=== PATIENT | female | born 1960 | race Caucasian/White ===

== ENCOUNTER 2023-10-28 00:13 | Emergency (ER) | payer OTHER, SELFPAY ==
[2023-10-28 00:24] VITALS: BP 125/80; PULSE 81; RESP 24; TEMP 36.4; O2SAT 93; BMI 45.1
--- NOTE | 2023-10-28 00:30 | CRLHL7_ITS ---
For Patients: As a result of the Century Cures Act, medical imaging exams and procedure reports are released immediately into your electronic medical record. You may view this report before your referring provider. If you have questions, please contact your health care provider. INDICATION: Shortness of breath TECHNIQUE: Chest radiograph 1 view COMPARISON: None FINDINGS: The sensitivity and specificity of the exam are severely limited by the patient`s body habitus. Mediastinum: The mediastinum is normal in appearance. There is a convex density in the right cardiophrenic sulcus noted, likely due to a pericardial fat pad. Moderate to severe cardiomegaly is noted. Lung: Mild pulmonary vascular congestion is present. No sign of pleural effusion seen. No pneumothorax is identified. Bone and Soft tissue: Unremarkable for age. IMPRESSIONS: 1. Moderate to severe cardiomegaly is noted. 2. Mild pulmonary vascular congestion is present. Dictated by Cuco Shepherd MD @ 10/28/2023 12:55:28 AM Dictated by: Cuco Shepherd MD @ 10/28/2023 00:55:30 (Electronically Signed)
--- NOTE | 2023-10-28 00:32 | ED.GENADULT ---
HPI - General Adult General Chief complaint: Shortness of Breath/Dyspnea Stated complaint: short of breath Time Seen by Provider: 10/28/23 00:25 History of Present Illness HPI narrative: PATIENT IS 63-YEAR-OLD WOMAN WHO HAS HAD PROGRESSIVE SHORTNESS OF BREATH THE LAST SEVERAL DAYS. SHE SMOKES HALF PACK CIGARETTES PER DAY AND HAS DONE SO FOR MANY YEARS. SHE HAS HAD NO CHEST PAIN ORTHOPNEA NO PND. SHE IS SHORT OF BREATH WITH ACTIVITY. SHE HAS HAD NO NAUSEA NO VOMITING. HER COUGH IS NONPRODUCTIVE. SHE HAS NO LOWER EXTREMITY EDEMA. NO FEVER OR CHILLS. Related Data Home Medications ?Medication ?Instructions ?Recorded ?Confirmed aripiprazole 5 mg tablet 5 mg PO DAILY 10/28/23 10/28/23 bupropion HCl 150 mg 24 hr tablet, 150 mg PO DAILY 10/28/23 10/28/23 extended release desvenlafaxine succinate 50 mg 50 mg PO DAILY 10/28/23 10/28/23 tablet,extended release 24 hr gabapentin 600 mg tablet PO 10/28/23 hydroxyzine HCl 25 mg tablet 75 mg PO 3XD 10/28/23 10/28/23 losartan 100 1 tab PO DAILY 10/28/23 10/28/23 mg-hydrochlorothiazide 12.5 mg tablet simvastatin 20 mg tablet 20 mg PO QPM 10/28/23 10/28/23 Allergies Allergy/AdvReac Type Severity Reaction Status Date / Time No Known Drug Allergies Allergy Verified 10/28/23 00:24 Review of Systems Status of ROS: Reports: 10 or more systems reviewed and unremarkable except as noted in History and below [facility] Medical History Hyperlipidemia ?E78.5 - Hyperlipidemia, unspecified (ICD-10) Hypertension ?I10 - Essential (primary) hypertension (ICD-10) Exam Narrative: Exam Narrative: EXAM GENERAL: Patient appears comfortable and well. EYES: No scleral icterus. ENT: Tympanic membranes and oropharynx normal. THYROID: no thyroid nodules or thyromegaly. LYMPH: No supraclavicular or cervical lymphadenopathy. SKIN: Visible skin seen during exam normal or with benign process only. EXT: No dependent lower extremity pedal edema. HEART: Regular rate and rhythm with no murmurs, rubs, or gallops. LUNGS: Decreased breath sounds bilaterally. ABD: Soft, non tender, non distended. PSYCH: Good eye contact, speech is not pressured. Const: Vital Signs, click to edit/add: Vital Signs - 24 hr 10/28/23 00:24 Temperature 97.6 F Pulse Rate [Left P ulse Oximeter] 81 Respiratory Rate 24 Blood Pressure [Ri ght Upper Arm] 125/80 Pulse Oximetry 93 Oxygen Delivery Me thod Room Air Course Course ED Course: Patient seen and examined. Chest x-ray troponin D-dimer CBC basic metabolic panel EKG pending. Vital Signs Vital signs: Initial Vital Signs Temperature 97.6 F 10/28/23 00:24 Temperature Source Temporal Artery Scan 10/28/23 00:24 Pulse Rate 81 10/28/23 00:24 Pulse Rhythm Regular 10/28/23 00:24 Pulse Strength 3+ Normal 10/28/23 00:24 Respiratory Rate 24 10/28/23 00:24 Blood Pressure 125/80 10/28/23 00:24 Blood Pressure Mean 95 10/28/23 00:24 Blood Pressure Position Sitting 10/28/23 00:24 Pulse Oximetry 93 10/28/23 00:24 Oxygen Delivery Method Room Air 10/28/23 00:24 Vital Signs Temperature 97.6 F 10/28/23 00:24 Pulse Rate 81 10/28/23 00:24 Respiratory Rate 24 10/28/23 00:24 Blood Pressure 125/80 10/28/23 00:24 Pulse Oximetry 93 10/28/23 00:24 Oxygen Delivery Method Room Air 10/28/23 00:24 Temperature 97.6 F 10/28/23 00:24 Pulse Rate 81 10/28/23 00:24 Respiratory Rate 24 10/28/23 00:24 Blood Pressure 125/80 10/28/23 00:24 Pulse Oximetry 93 10/28/23 00:24 Oxygen Delivery Method Room Air 10/28/23 00:24 Medical Decision Making MDM Narrative Medical decision making narrative: Patient is a 63-year-old woman who is a tobacco user who presents with shortness of breath of several days. EKG is reassuring. Electrolytes and D-dimer unavailable. Troponin I do not believe would be helpful given the normal EKG in the chronicity of her symptoms. Chest x-ray upon my review shows no acute pneumonia as her pleural effusions. I believe her most likely diagnosis is COPD exacerbation. Will treated with prednisone albuterol with close outpatient follow-up. We are somewhat limited due to laboratory difficulties tonight. Differential diagnosis includes but not limited to COPD pneumonia viral syndrome congestive heart failure unstable angina. Lab Data Labs: Lab Results 10/28/23 Range/Units 00:50 WBC 8.69 (4.50-11.00) K/uL RBC 5.14 (4.00-5.20) m/uL Hgb 15.1 (12.0-16.0) gm/dL Hct 45.7 (33.0-51.0) % MCV 89 (80-100) fL MCH 29 (26-34) pg MCHC 33 (32-36) gm/dL RDW Coeff of Avni 13.6 (11.5-15.5) % Plt Count 277 (140-440) K/uL Neut % (Auto) 51.6 (42.0-72.0) % Lymph % (Auto) 39.6 (20-44) % Price % (Auto) 7.2 (0.0-11.0) % Eos % (Auto) 1.2 (0.0-7.0) % Baso % (Auto) 0.3 (0.0-3.0) % Neut # (Auto) 4.48 (1.7-7.0) K/uL Lymph # (Auto) 3.44 H (0.90-2.90) K/uL Price # (Auto) 0.60 (0.00-0.90) K/UL Eos # (Auto) 0.10 (0.00-0.50) K/uL Baso # (Auto) 0.03 (0.00-0.30) K/uL Abs Immat Gran (auto) 0.01 (0.00-0.30) K/uL Imm/Tot Granulo (auto) 0.1 % Discharge Plan Discharge Clinical Impression: Bronchitis Patient Disposition: Home, Self-Care Condition: Stable Instructions: Acute Bronchitis (ED) Additional Instructions: Prednisone as directed Albuterol as directed Continue current medications Stop smoking Follow-up with your doctor as directed. Activity Level: No Restrictions Discharge Diet: Regular Prescriptions: No Action aripiprazole 5 mg tablet 5 mg PO DAILY gabapentin 600 mg tablet PO simvastatin 20 mg tablet 20 mg PO QPM hydroxyzine HCl 25 mg tablet 75 mg PO 3XD bupropion HCl 150 mg tablet extended release 24 hr 150 mg PO DAILY losartan-hydrochlorothiazide 100-12.5 mg tablet 1 tab PO DAILY desvenlafaxine succinate 50 mg tablet extended release 24 hr 50 mg PO DAILY Follow Up/Referrals: Ludy Johnson PA [Primary Care Provider] - Stand Alone Forms: [employer] Info Instructions
--- OUTSIDE RECORDS SUMMARY | 2023-10-28 00:48 | XMS_ITS | Clinical Summary ---
Author Organization [facility] Address [place], [place] [address] Care Team Providers Care Mds Coordinator Name Role Phone Pcp, No Primary Care Provider Unavailabl e Allergies Active Allergy Reactions Criticality Noted Date Comments Hydromorphone Itching Medium 01/15/2018 Tolerating morphine and oxycodone fine during this same admission. Medications Medication Sig Dispensed Refills Start Date End Date Status furosemide (LASIX) 20 mg tablet TAKE 1 TABLET BY MOUTH DAILY NEEDED FOR EDEMA Strength: 20 mg 03/15/2022 Active gabapentin (NEURONTIN) 300 mg capsule Take 300 mg by mouth. 06/30/2022 Active hydrOXYzine HCL (ATARAX) 25 mg tablet TAKE ONE TO TWO TABLETS BY MOUTH EVERY 6 TO 8 HOURS NEEDED FOR ANXIETY, TAKE TWO TO FOUR TABLETS BY MOUTH NEEDED FOR SLEEP 08/08/2022 Active isosorbide mononitrate (IMDUR) 30 mg extended release tablet 24 Hour Take 30 mg by mouth. 04/28/2022 Active simvastatin (ZOCOR) 10 mg tablet Take 1 Tablet (10 mg) by mouth at bedtime. 0 12/21/2022 Active losartan (COZAAR) 25 mg tablet Take 1 Tablet (25 mg) by mouth once daily. 0 12/21/2022 Active Active Problems No known active problems Immunizations Name Administration Dates Next Due Tdap 12/21/2022 Social History Tobacco Use Types Packs/Day Years Used Date Smoking Tobacco: Every Day Cigarettes 0.5 51.5 Started: 1973 Smokeless Tobacco: Never Tobacco Cessation:Ready to Q uit: Not Asked; Counseling Given: Not Answered Sex and Gender Information Value Date Recorded Sex Assigned at Not on file Gender Identity Not on file Sexual Orientation Not on file Obstetrics History Last Filed Vital Signs Vital Sign Reading Time Taken Comments Blood Pressure 139/94 12/21/2022 11:48 AM CDT Pulse 95 12/21/2022 11:48 AM CDT Temperature 36.1 ??C (97 ??F) 12/21/2022 11:48 AM CDT Respiratory Rate 16 12/21/2022 11:48 AM CDT Oxygen Saturation 94% 12/21/2022 11:48 AM CDT Inhaled Oxygen Concentration - - Weight - - Height - - Body Mass Index - - Plan of Treatment Health Maintenance Due Date Last Done Comments Depression screening for age 12+ 1971 HIV for age 15-65 08/24/1974 BMI (ht and wt on same day) for age 18+ 08/24/1977 Hepatitis C screening for ag e 18-79 08/24/1977 Pap test for age 21-65 08/24/1980 Colonoscopy through age 75 08/24/2004 Lipids for age 45-75 08/24/2004 Mammogram for age 45-75 08/24/2004 Zoster (shingles) series for age 50+ (1 of 2) 08/24/2009 COVID-19 vaccine series (2022- season) 2022 08/13/2020, 07/23/2020 Influenza for age 50-64 12/23/2023 Tetanus booster 12/21/2032 12/21/2022 Tdap Completed 12/21/2022 Pneumococcal series for age 6-64 Aged Out No longer eligible b ased on patient's age to complete this topic Care Teams Mds Coordinator Relationship Specialty Start Date End Date Pcp, No . PCP - General 12/21/22
--- OUTSIDE RECORDS SUMMARY | 2023-10-28 00:48 | XMS_ITS | Continuity of Care Document ---
Author Organization [facility] Address [address] [address] [place] [address] Phone Care Team Providers Care Associate Professor Of Library Media Name Role Phone Link Stalin KUMAR Unavailable Unavailable Advance Directives Directive Yes / No Effective Date File Name No Information Encounters Encounter Description Practice Location Reason(s) For Visit Diagnoses Date Provider Providers Copied on Encounter [facility], [address] [address], [place], [place], [id number], [place] tel:[phone] [facility] No Information 8 Link MD Gant. [address] [facility], [place], [place], [id number] , [place]. tel:[phone] Family History Family Member Type Diagnosis Age At Onset No Information Payers Payer name Insurance type Covered alliance party ID Authoriza tion(s) No Information Social History Type Description Quantity Date Captured Comments Sex Female Smoking Status No Information Chief Complaint And Reason For Visit No Information Reason For Referral Reason For Referral No Information History Of Present Illness Encounter Date Complaint History Of Prese nt Illness No Information Functional Status Date Functional Assessmen t No Information Instructions Date Instruction Additional Infor mation No Information Assessments Type Assessment Date No Information Patient Care Teams Name Effective Dates (start - stop) Status Members No Information
--- OUTSIDE RECORDS SUMMARY | 2023-10-28 00:49 | XMS_ITS | Encounter Summary ---
Author Organization [facility] Address [address] [place] [address] Care Team Providers Care Dining Host Name Role Phone Ludy Johnson PA-C Primary Care Provider [phone] Ludy Johnson PA-C Unavailable [phone] Sanjana Blair RN Unavailable [phone] Vinita Begum HAT BAND ATTACHER Unavailable Kathy Edge BUILDING TECH Unavailable Danae Carrero CHW Unavailable Enid Ho DNP Unavailable Kendrick Lopez MD Unavailable Encounter Details Date Type Department Care Team (Late st Contact Info) Description 10/18/2023 MyC Medical Advice [facility] Mental Health & Addiction [address] [address] Kathy Edge BUILDING TECH [address] [address] Social History Tobacco Use Types Packs/Day Years Used Date Smoking Tobacco: Every Day Cigarettes 0.5 30 Smokeless Tobacco: Never Comments:08/09/23 using betwe en 10-15 cigs/day down to 3 or 4 a day Alcohol Use Standard Drinks/Week Comments Yes 0 (1 standard drink = 0.6 oz pur e alcohol) very rarely PHQ-2 Answer Date Recorded PHQ-2 Score 2 10/18/2023 Adolescent Education Answer Date Record ed Getting School Help Needed Not on file 01/16 Food Insecurity Answer Date Recorded Within the past 12 months, d id you worry that your food would run out before you got money to buy more? Yes 04/30/2023 Within the past 12 months, d id the food you bought just not last and you didn? t have money to get more? Yes 04/30/2023 Housing Stability Answer Date Recorded Do you have housing? (Housin g is defined as stable permanent housing and does not include staying ouside in a car, in a tent, in an abandoned building, in an overnight alf, or couch-surfing.) Yes 04/30/2023 Are you worried about losing your housing? Patie nt declined 04/30/2023 Financial Resource Strain Answer Date R ecorded Within the past 12 months, h ave you or your family members you live with been unable to get utilities (heat, electricity) when it was really needed? Patient declined 024 Transportation Needs Answer Date Record ed Within the past 12 months, h as lack of transportation kept you from medical appointments, getting your medicines, non-medical meetings or appointments, work, or from getting things that you need? No 04/30/2023 Sex and Gender Information Value Date Recorded Sex Assigned at Not on file Gender Identity Not on file Sexual Orientation Not on file documented as of this encounter Miscellaneous Notes * Telephone Encounter - Enid Ho DNP - 10/19/2023 11:17 AM CDT Letter for [place] created. Letter supporting [facility] created. Enid Ho DNP, WRISTER, FMHNP-BC, documented in this encounter Plan of Treatment Upcoming Encounters Date Type Department Care Team (Late st Contact Info) Description 11/29/2023 10:30 AM CDT Virtual Visit [facility] Mental Health & Addiction [facility] [address] [place] [address] Kathy Edge LICSW [facility] [address], [address] [place] [address] 11/29/2023 11:00 AM CDT Virtual Visit [facility] Mental Health & Addiction [facility] [address] [place] [address] Enid Ho, YASMIN [address] [place] [address] 12/11/2023 2:45 PM CDT Office Visit [facility] Heart [facility] [address] [facility] [address] [place] [phone] Kendrick Lopez MD [address] [place] [address] documented as of this encounter Goals Goal Patient Goal Type Associated Problems Recent Progress Patient-Stated? Author Create an action plan to increase financial stability Care Plan Patient expresses financial resource strain 10%( 3:26 PM CDT) No Vinita Begum, HAT BAND ATTACHER Note: Barriers: Have been supporting my son and his girlfriend who live with me Strengths: Engaged with PCP, mental health support and care coordination Patient expressed understanding of goal: Yes Action steps to achieve this goal: 1. I will make plan to retire as soon as possible. 2. I will contact Social Security Administration to explore my skilled nursing options and to see if SSD is an option. . 3. I will consult with [facility] about health insurance options. 4. I will make plan with son and his girlfriend and my expectation for their paying monthly rent and expenses. 5. I will access [employer] program for food. documented as of this encounter Visit Diagnoses Not on filedocumented in this encounter Additional Health Concerns Active Problems Noted Date Diagnosed Date Patient expresses financial resource strain 07/23 Assessment Noted Time PHQ-9 Depression Total Score: 9 10/18/19 24 6:28 AM CDT documented as of this encounter Care Teams Dining Host Relationship Specialty Start Date End Date Ludy Johnson PA-C [address] [place] [address] PCP - General Physician Operational Intelligence Analyst 10/22/15 Ludy Johnson PA-C [address] [place] [address] Assigned PCP 06/09/18 Sanjana Blair, MIREYA Personal Advocate & Liaison (PAL) Nurse 04/25/23 Vinita Begum, [facility] Lead Timber Surveyor Primary Care - CC 08/06/23 Kathy Edge LICSW [address], [address] [place], [place] [phone] Assigned Behavioral Health Provider 08/14/23 Danae Carrero, [facility] Community Health Worker Primary Care - CC 08/16/23 Enid Ho DNP [address] [place] [address] Assigned Neuroscience Provider 09/13/23 Kendrick Lopez MD [address] [place] [address] Cardiovascular Disease 09/28/23 documented as of this encounter
--- OUTSIDE RECORDS SUMMARY | 2023-10-28 00:49 | XMS_ITS | Encounter Summary ---
Author Organization [facility] Address [address] [place] [address] Care Team Providers Care Administration Vice President Name Role Phone Ludy Johnson PA-C Primary Care Provider [phone] Ludy Johnson PA-C Unavailable [phone] Sanjana Blair RN Unavailable Vinita Begum EXECUTIVE WELLNESS PROGRAMS DIRECTOR Unavailable Kathy Edge PRINCIPAL NETWORK ARCHITECT Unavailable Danae Carrero CHW Unavailable Enid Ho DNP Unavailable Kendrick Lopez MD Unavailable [phone] Reason for Visit * Reason Onset Date Comments FMLA ext. 10/17/2023 LM for patient t o return call, per Enid Ho, does the pt need an extension In FMLA Encounter Details Date Type Department Care Team (Late st Contact Info) Description 10/17/2023 Telephone [facility] Mental Health & Addiction [facility] [address] [place] [address] Nino Wang FMLA ext. (LM for patient to return call, per Enid Ho, does the pt need an extension In FMLA ) Social History Tobacco Use Types Packs/Day Years [...] on file documented as of this encounter Plan of Treatment Upcoming Encounters Date Type Department Care Team (Late st Contact Info) Description 11/29/2023 10:30 AM CDT Virtual Visit [facility] Mental Health & Addiction [address] [place] [address] [place] [phone] Kathy Edge, ZULLY [address], [address] [place] [address] 11/29/2023 11:00 AM CDT Virtual Visit [facility] & Addiction [facility] [address] [place] [phone] Enid Ho, YASMIN [address] [place] [address] 12/11/2023 2:45 PM CDT Office Visit [facility] [address] [facility] [address] [place] [phone] Kendrick Lopez MD [address] [place] [address] documented as of this encounter Goals Goal Patient Goal Type Associated Problems Recent Progress Patient-Stated? Author Create an action plan to increase financial stability Care Plan Patient expresses financial resource strain 10%( 4 3:26 PM CDT) No Vinita Begum, EXECUTIVE WELLNESS PROGRAMS DIRECTOR Note: Barriers: Have been supporting my son and his girlfriend who live with me Strengths: Engaged with PCP, mental health support and care coordination Patient expressed understanding of goal: Yes Action steps to achieve this goal: 1. I will make plan to retire as soon as possible. 2. I will contact Social Security Administration to explore my [place] health [place] options and to see if SSD is an option. . 3. I will consult with [employer] about health insurance options. 4. I will make plan with son and his girlfriend and my expectation for their paying monthly rent and expenses. 5. I will access [employer] program for food. documented as of this encounter Visit Diagnoses Not on filedocumented in this encounter Additional Health Concerns Active Problems Noted Date Diagnosed Date Patient expresses financial resource strain 07/23 Assessment Noted Time PHQ-9 Depression Total Score: 6 09/12/19 24 10:54 AM CDT documented as of this encounter Care Teams Administration Vice President Relationship Specialty Start Date End Date Ludy Johnson PA-C [address] [place] [address] PCP - General Physician Electric Refrigerator Servicer 10/22/15 Ludy Johnson PA-C [address] [place] [address] Assigned PCP 06/09/18 Sanjana Blair, RN Personal Advocate & Liaison (PAL) Nurse 04/25/23 Vinita Begum, [facility] Lead Dirt Contractor Primary Care - CC 08/06/23 Kathy Edge, PRINCIPAL NETWORK ARCHITECT [address], [address] [place], [place] [address] Assigned Behavioral Health Provider 08/14/23 Danae Carrero, [facility] Community Health Worker Primary Care - CC 08/16/23 Enid Ho DNP [address] [place] [address] Assigned Neuroscience Provider 09/13/23 Kendrick Lopez MD [address] [place] [id number] Cardiovascular Disease 09/28/23 documented as of this encounter
--- OUTSIDE RECORDS SUMMARY | 2023-10-28 00:49 | XMS_ITS | Clinical Summary ---
Author Organization [place] Address [address] [place] [address] Care Team Providers Care Testing Tech Name Role Phone Ludy Hurst PA-C Primary Care Provider [phone] Ludy Hurst PA-C Unavailable Sanjana Blair RN Unavailable Vinita Begum MOBILE SERVICE RV TECHNICIAN Unavailable Kathy Edge MANAGER INTENSIVE CARE UNIT Unavailable Danae Carrero CHW Unavailable Enid Ho DNP Unavailable Kendrick Lopez MD Unavailable Allergies Active Allergy Reactions Criticality Noted Date Comments Hydromorphone Itching Medium 01/15/2018 Tolerating morphine and oxycodone fine during this same admission. Medications Medication Sig Dispensed Refills Start Date End Date Status ondansetron (ZOFRAN ODT) 4 MG ODT tabIndications:Todd sea Take 1 tablet (4 mg) by mouth every 8 hours as needed for nausea 15 tablet 1 06/04/2023 Active Additional Information Patient not taking.Reported on 08/09/2023 hydrOXYzine HCl (ATARAX) 25 MG tabletIndications: Anxiety state,Insomnia, unspecified type TAKE ONE TO TWO TABLETS BY MOUTH EVERY 6 TO 8 HOURS NEEDED FOR ANXIETY, TAKE TWO TO FOUR TABLETS BY MOUTH NEEDED FOR SLEEP 90 tablet 1 08/03/2023 Active simvastatin (ZOCOR) 20 MG tabletIndications: Hyperlipidemia LDL goal <100 Take 1 tablet (20 mg) by mouth at bedtime 90 tablet 1 08/03/2023 Active losartan-hydrochlo rothiazide (HYZAAR) 100-12.5 MG tabletIndications: Hypertension goal BP (blood pressure) < 140/90 Take 1 tablet by mouth daily 90 tablet 3 08/03/2023 Active gabapentin (NEURONTIN) 600 MG tablet Take 1-1.5 tablets (600-900 mg) by mouth at bedtime 135 tablet 08/09/2023 Active betamethasone dipropionate (DIPROSONE) 0.05 % external ointmentIndication s:Dermatitis Apply topically 2 times daily as needed (for irritation) 45 g 1 08/22/2023 Active isosorbide mononitrate (IMDUR) 30 MG 24 hr tabletIndications: Abnormal stress test Take 1 tablet (30 mg) by mouth daily - please make cardiology visit for further refills. 90 tablet 09/28/2023 Active ARIPiprazole (ABILIFY) 5 MG tabletIndications: Severe episode of recurrent major depressive disorder, without psychotic features (H) Take 1 tablet (5 mg) by mouth at bedtime 90 tablet 10/18/2023 Active buPROPion (WELLBUTRIN XL) 150 MG 24 hr tabletIndications: Severe episode of recurrent major depressive disorder, without psychotic features (H) Take 1 tablet (150 mg) by mouth every morning 30 tablet 1 10/18/2023 Active desvenlafaxine succinate (PRISTIQ) 50 MG 24 hr tabletIndications: Severe episode of recurrent major depressive disorder, without psychotic features (H) Take 1 tablet (50 mg) by mouth daily For one week then discontinue 7 tablet 10/18/2023 Active desvenlafaxine (PRISTIQ) 100 MG 24 hr tabletIndications: Anxiety state,Severe episode of recurrent major depressive disorder, without psychotic features (H) Take 1 tablet (100 mg) by mouth daily 90 tablet 1 08/03/2023 Discontinue d(Not Effective) ARIPiprazole (ABILIFY) 2 MG tabletIndications: Severe episode of recurrent major depressive disorder, without psychotic features (H) Take 1 tablet (2 mg) by mouth daily 1/2 tablet oral daily for one week then increase to 1 tablet thereafter. 30 tablet 1 08/09/2023 4 Discontinue d(Dose adjustment) ARIPiprazole (ABILIFY) 5 MG tabletIndications: Severe episode of recurrent major depressive disorder, without psychotic features (H) Take 1 tablet (5 mg) by mouth at bedtime 30 tablet 1 09/13/2023 4 Discontinue d(Reorder (No AVS)) Hospital, Clinic, or Other Facility Administered Medication Ordered Dose Route Frequency Start Date End Date Status dexamethasone (DECADRON) injection 1 mLIndications:De Quervain's tenosynovitis, right,Extensor tenosynovitis of right wrist 1 mL 06/10/2021 Active dexamethasone (DECADRON) injection 1 mLIndications:De Quervain's tenosynovitis, right 1 mL 07/26/2021 Active lidocaine 1 % injection 1 mLIndications:De Quervain's tenosynovitis, right 1 mL 07/26/2021 Acti ve Active Problems Problem Noted Date Diagnosed Date Severe episode of recurrent major depressive disorder, without psychotic features 08/15/2023 Acute cough 06/04/2023 Last Assessment & Plan: Cough producing mucus. Over the weekend. Chest is clear, posterior pharyngeal lymphoid streaks. Coryza. Postnasal drip. Treat Diarrhea of presumed infectious origin Last Assessment & Plan: Onset 4 days ago. Watery without blood no abdominal pain abdomen benign. Discussed dietary modification fluids. Given medical regimen and diarrhea, assess electrolytes. Recommend Pedialyte as fluid replacement Nausea 06/04/2023 Last Assessment & Plan: Nausea anorexia with illness. Abdomen is benign. Antinauseants. Discussed dietary modification for nausea. Push fluids orally Coryza 06/04/2023 Last Assessment & Plan: History duration and findings suggest viral syndrome. Symptomatic measures Moderate episode of recurrent major depressive d isorder 04/26/2023 Anxiety 04/26/2023 Combined forms of age-related cataract of both e yes 01/09/2022 Overview: Added automatically from request for surgery [id number] Nuclear cataract, nonsenile 01/09/2022 Overview: Added automatically from request for surgery [id number] Pain of right thumb 06/22/2021 Pain of right hand 06/22/2021 Insomnia, unspecified type 02/10/2020 S/P colostomy 05/28/2018 H/O ileostomy 01/14/2018 Diverticulitis large intestine 12/03/2017 Perforation of sigmoid colon due to diverticulit is 12/03/2017 Prediabetes 07/22/2015 Bilateral leg edema 12/03/2014 Stasis dermatitis 11/13/2014 Cellulitis 11/13/2014 Fluid retention 11/13/2014 Right shoulder pain 08/21/2013 Osteoarthritis of acromioclavicular joint 2013 Mood disorder (H24) 08/19/2013 Elevated fasting glucose 08/18/2013 Morbid obesity 08/15/2013 Hypertension goal BP (blood pressure) < 140/90 0 11/11/2012 Hyperlipidemia LDL goal <100 07/06/2011 Fluid retention in legs 10/21/2010 Herpes zoster 08/07/2006 Overview: Problem list name updated by automated process. Provider to review Anxiety state 08/07/2006 Overview: Problem list name updated by automated process. Provider to review Resolved Problems Problem Noted Date Diagnosed Date Resolved Date Depression, unspecified depression type 04/26/2023 08/03/2023 Right wrist pain 06/22/2021 12/30/2021 Major depressive disorder, r ecurrent episode, mild (H24) 05/28/2018 08/03/2023 Mild major depression 11/29/20132023 Shoulder pain 08/15/2013 10/16/2013 CARDIOVASCULAR SCREENING; LD L GOAL LESS THAN 130 06/02/2009 07/06/2011 Encounters Date Type Department Care Team Description 10/26/2023 Telephone [facility] [address] [place] [phone] Enid Ho, DNP Forms ([place]) 10/18/2023 11:00 AM CDT Virtual Visit [facility] [address] [place] [address] [address] [place] [phone] Enid Ho DNP Severe episode of recurrent major depressive disorder, without psychotic features (H) 10/18/2023 10:30 AM CDT Virtual Visit [facility] [address] [place] [address] [address] [place] [phone] Kathy Edge LICSW Depression, major, recurrent, moderate (H) (Primary Dx) 10/18/[address] [facility] [address] [place] [address] [place] [phone] Kathy Edge LICSW 10/17/2023 Telephone [facility] [address] [place] [address] [place] [phone] Nino Wang FMLA ext. (LM for patient to return call, per Enid Ho, does the pt need an extension In FMLA ) 10/16/2023 Telephone [facility] [address] [place] [address] Ludy Hurst PA-C Forms ([facility] Leave Request Number: [id number]) 10/09/[address] [facility] [address] [place] [address] [place] [phone] Enid Ho DNP Patient Request for Note/Letter (Letter to... 09/28/2023 Telephone [facility] [address] [facility] [address] [place] [phone] Kendrick Lopez MD Refill Request (isosorbide mononitrate (IMDUR) 30 MG 24 hr tablet [[id number]]) 09/20/[address] [facility] [address] [place] [address] [place] [phone] Enid Ho DNP Medication Refill; Refill Request (Aripiprazole 2mg) 09/13/2023 4:00 PM CDT Virtual Visit [facility] [address] [place] [address] [place] [phone] Enid Ho DNP Severe episode of recurrent major depressive disorder, without psychotic features (H) (Primary Dx) 09/13/2023 3:30 PM CDT Virtual Visit [facility] [address] [place] [phone] Kathy Edge LICSW Depression, unspecified depression type (Primary Dx) 09/04/2023 Documentation Only [facility] [address] [phone] Enid Ho DNP 09/03/2023 MyC Medical Advice [address] [phone] Ludy Hurst PA-C Patient Request (Leave of absence forms [place]... 08/28/[address] [phone] Ludy Hurst PA-C Follow Up (Forms ) 08/28/2023 Telephone [facility] [address] [phone] Enid Ho DNP Call Back (See documentation. ) 08/23/[address] [phone] Ludy Hurst PA-C [facility] 08/22/2023 9:00 AM CDT Office Visit [facility] [phone] [place] [phone] Ludy Hurst PA-C Severe episode of recurrent major depressive disorder, without psychotic features (H) (Primary Dx); Achilles bursitis of left lower extremity; Pre-diabetes; Dermatitis; Visit for screening mammogram 08/22/2023 Travel 08/16/[address] [phone] Ludy Hurst PA-C Forms (Attending Physician's Statement) 08/09/2023 11:00 AM CDT Virtual Visit [address] [phone] Ludy Hurst PA-C Moderate episode of recurrent major depressive disorder (H) (Primary Dx); Anxiety; Achilles bursitis of left lower extremity 08/09/2023 8:30 AM CDT Virtual Visit [facility] [address] [place] [address] [address] [place] [phone] Enid Ho, DNP Severe episode of recurrent major depressive disorder, without psychotic features (H) (Primary Dx); Insomnia due to psychological stress 08/09/2023 8:00 AM CDT Virtual Visit [facility] [address] [place] [address] Kathy Edge LICSW Depression, unspecified depression type (Primary Dx) 08/08/[address] [facility] [address] [place] [address] Kathy Edge LICSW 08/07/2023 1:00 PM CDT Virtual Visit [facility] [address] [phone] Torie Monroy LICSW Depression, unspecified depression type (Primary Dx) 08/07/[address] [phone] Ludy Hurst PA-C Forms ([facility] Source Leave Request Number: [id number]) 08/07/[address] [facility] [address] [phone] Torie Monroy, MANAGER INTENSIVE CARE UNIT 08/07/2023 MyC Medical Advice [facility] Addiction [address] [phone] Torie Monroy, MANAGER INTENSIVE CARE UNIT 08/03/2023 10:00 AM CDT Virtual Visit [address] [phone] Ludy Hurst PA-C Severe episode of recurrent major depressive disorder, without psychotic features (H) (Primary Dx); Hypertension goal BP (blood pressure) < 140/90; Anxiety state; Insomnia, unspecified type; Hyperlipidemia LDL goal <100; Financial difficulty 07/31/[address] [phone] Ludy Hurst PA-C Patient Request (MIREYA ZAVALA ) 07/31/2023 MyC Medical Advice [address] [phone] Rosy Shay MA Appointment (R/S 08/22/2023 with JOEY arriving... from Last 3 Months Immunizations Name Administration Dates Next Due COVID-19 MONOVALENT 12+ (Pfizer) 08/13/2020 Influenza Vaccine 18-64 (Flublok) 01/18/2018 TDAP (Adacel,Boostrix) 12/21/2022 TDAP Vaccine (Adacel) 07/04/2012 Family History Medical History Relation Comments Alcoholism Father Alzheimer Disease Father Diabetes Father Heart Disease Father Retinal detachment Father Diabetes Maternal Grandmother Anxiety Disorder Mother Depression Mother Diabetes Mother Myocardial Infarction Mother Relation Status Comments Father Maternal Grandmother Mother Hoarder Social History Tobacco Use Types Packs/Day Years Used Date Smoking Tobacco: Every Day Cigarettes 0.5 30 Smokeless Tobacco: Never Tobacco Cessation:Ready to Q uit: Not Asked; Counseling Given: Not Answered Comments:08/09/23 using between 10-15 cigs/day down to 3 or 4 [...] Answer Date Recorded Do you have housing? (Hua g is defined as stable permanent housing and does not include staying ouside in a car, in a tent, in an abandoned building, in an overnight prison, or couch-surfing.) Yes 04/30/2023 Are you worried [...] on file Sexual Orientation Not on file Last Filed Vital Signs Vital Sign Reading Time Taken Comments Blood Pressure 128/72 08/22/2023 9:25 AM CDT Pulse 88 08/22/2023 9:01 AM CDT Temperature 36.4 ??C (97.6 ??F) 08/22/2023 9:01 AM CD T Respiratory Rate 18 08/22/2023 9:01 AM CDT Oxygen Saturation 93% 08/22/2023 9:01 AM CDT Inhaled Oxygen Concentration - - Weight 135.8 kg (299 lb 6.4 oz) 08/22/2023 9:01 AM CDT Height 170.2 cm (5' 7) 10/18/2023 10:1 8 AM CDT Body Mass Index 46.89 08/22/2023 9:01 AM CDT Plan of Treatment Upcoming Encounters Date Type Department Care Team (Late st Contact Info) Description 11/29/2023 10:30 AM CDT Virtual Visit [facility] [address] [place] [phone] Kathy Edge LICSW [facility] [address], [address] [place] [address] 11/29/2023 11:00 AM CDT Virtual Visit [facility] [address] [place] [phone] Enid Ho, [facility] [address] [place], [place] [phone] 12/11/2023 2:45 PM CDT Office Visit [facility] [address] [facility] [address] [place] [phone] Kendrick Lopez MD [address] [place], [place] [phone] Health Maintenance Due Date Last Done Comments CT COLONOGRAPHY 1960 FLEX SIG 1960 sDNA (Cologuard) 1960 Pneumococcal Vaccine: Pediatrics (0 to 5 Years) and At-Risk Patients (6 to 64 Years) (1 of 2 - PCV) 08/24/1965 LUNG CANCER SCREENING 08/24/2009 ZOSTER IMMUNIZATION (1 of 2) 08/24/2009 FIT 11/02/2011 11/01/2010 MAMMO SCREENING 10/20/2012 10/20/2010 COLONOSCOPY 12/05/2013 12/05/2010 COLORECTAL CANCER SCREENING 12/05/2013 YEARLY PREVENTIVE VISIT 07/21/2016 07/22/19 16, 07/04/2012, 09/23/2010 PAP 07/21/2018 07/22/2015, 09/23/2010 RSV VACCINE ( & 60+) (1 - 1-dose 60+ series) 2019 COVID-19 Vaccine (2022- season) 2022 08/13/2020, 07/23/2020 INFLUENZA VACCINE (#1) 2023 01/18/2018 PHQ-9 04/18/2024 10/18/2023, 05/2 06/2023, 08/22/2023, Additional history exists LIPID 05/07/2024 05/07/2023, 06/0 07/2019, 05/28/2018, Additional history exists ANNUAL REVIEW OF HM ORDERS 08/02/202408/02, 08/08/2022, 02/10/2020 NICOTINE/TOBACCO CESSATION COUNSELING Q 1 YR 08/02/2024 08/03/2023, 08/08/2022, 10/01/2020, Additional history exists GLUCOSE 06/04/2026 06/04/2023, 04/23, 01/12/2022, Additional history exists ADVANCE CARE PLANNING 01/12/2027 01/12/2022 , 12/03/2017, 11/16/2014 (Declined) DTAP/TDAP/TD IMMUNIZATION (3 - Td or Tdap) 12/21/2032 12/21/2022, 07/04/2012 DEPRESSION ACTION PLAN Completed 6, 04/13/2015, 07/06/2011 HEPATITIS C SCREENING Completed 05/28/2018 HIV SCREENING Addressed 10/01/2020 (Declined) Overr idden with the intention of not completing the topic HPV IMMUNIZATION Aged Out No longer e ligible based on patient's age to complete this topic IPV IMMUNIZATION Aged Out No longer e ligible based on patient's age to complete this topic MENINGITIS IMMUNIZATION Aged Out No l onger eligible based on patient's age to complete this topic RSV MONOCLONAL ANTIBODY Aged Out No l onger eligible based on patient's age to complete this topic Goals Goal Patient Goal Type Associated Problems Recent Progress Patient-Stated? Author Create an action plan to increase financial stability Care Plan Patient expresses financial resource strain 10%( 4 3:26 PM CDT) No Vinita Begum LSW Note: Barriers: Have been supporting my son and his girlfriend who live with me Strengths: Engaged with PCP, mental health support and care coordination Patient expressed understanding of goal: Yes Action steps to achieve this goal: 1. I will make plan to retire as soon as possible. 2. I will contact Social Security Administration to explore my residential options and to see if SSD is an option. . 3. I will consult with [facility] about health insurance options. 4. I will make plan with son and his girlfriend and my expectation for their paying monthly rent and expenses. 5. I will access IPPLEX RX program for food. Medical Devices Implanted Type Area Transmission Rebuilder Device Identifier Shelf Expiration Date Model / Serial / Lot Eye Imp Iol Remy Acrysof Uv [id number] 19.0d - [id number] Implanted:Qty: 1 on 01/17/2022 by Timoteo Fitzpatrick MD at [facility] Lens/Eye Implant Right: Eye [employer] [id number] 09/26/2026 SA60WF.19 0 / [id number] / Eye Imp Iol Remy Acrysof Uv Sa60wf +20.0d - [id number] Implanted:Qty: 1 on 01/31/2022 by Timoteo Fitzpatrick MD at [facility] Lens/Eye Implant Left: Eye [employer] 09/25/2026 SA60WF.20 0 / [id number] / Procedures Procedure Name Priority Date/Time Associated Diagnosis Comments HEMOGLOBIN A1C Routine 08/22/2023 9:49 AM CDT Pre-diabetes BASIC METABOLIC PANEL Routine 06/04/2023 4:09 PM SCOWMAN Diarrhea of presumed infectious origin LIPID REFLEX TO DIRECT LDL PANEL Routine 05/07/2023 4:26 PM SCOWMAN Hyperlipidemia LDL goal <100 HEPATITIS C SCREEN REFLEX TO HCV RNA QUANT AND GENOTYPE Routine 05/28/2018 9:16 AM SCOWMAN Need for hepatitis C screening test PAP IMAGED THIN LAYER SCREEN Routine 07/22/2015 12:00 AM CDT Routine general medical examination at a health care facility COLONOSCOPY Routine 12/05/2010 FECAL COLORECTAL CANCER SCREEN FIT Routine 11/01/2010 7:00 AM CDT Routine general medical examination at a health care facility MA SCREENING DIGITAL BILATERAL Routine 10/20/2010 8:21 AM CDT from Last 3 Months or Most Recently Relevant to Health Maintenance Results * (ABNORMAL) Hemoglobin A1c (08/22/2023 9:49 AM CDT) Hemoglobin A1C 6.1(H) 0.0 - 5.6 % 08/22/2023 10:00 AM CDT [facility] Comment: Normal <5.7% Prediabetes 5.7-6.4% ?? Diabetes 6.5% or higher Note: Adopted from ADA consensus guidelines. Blood BLOOD SPECIMEN / Unknown Venipuncture / Unknown 08/22/2023 9:49 AM CDT 08/22/2023 9:49 AM CDT Ludy Hurst PA-C LAB - BLOOD ORDERA BLES [facility] [address] [place] [address] (no room number, 1st floor of clinic) [place] [address], [place] [phone] * (ABNORMAL) Basic metabolic panel (Ca, Cl, CO2, Creat, Gluc, K, Na, BUN) (06/04/2023 4:09 PM SCOWMAN) Sodium 138 135 - 145 mmol/L 06/05/2023 6:03 PM SCOWMAN [facility] Comment:Reference intervals for this test were updated on 01/16/2023 to more accurately reflect our healthy population. There may be differences in the flagging of prior results with similar values performed with this method. Interpretation of those prior results can be made in the context of the updated reference intervals. Potassium 3.8 3.4 - 5.3 mmol/L 06/05/2023 6:03 PM SCOWMAN [facility] Chloride 100 98 - 107 mmol/L 06/05/2023 6:03 PM SC[facility]MAN [facility] Carbon Dioxide (CO2) 25 22 - 29 mmol/L 06/05/2023 6:03 PM SC[facility]MAN [facility] Anion Gap 13 7 - 15 mmol/L 06/05/2023 6:03 PM SCOWMAN [facility] Urea Nitrogen 24.8(H) 8.0 - 23.0 mg/dL 06/05/2023 6:03 PM SCOWMAN [facility] Creatinine 0.95 0.51 - 0.95 mg/dL 06/05/2023 6:03 PM SCOWMAN [facility] GFR Estimate 67 >60 mL/min/1. 73m2 06/05/2023 6:03 PM SCOWMAN [facility] Calcium 9.7 8.8 - 10.2 mg/dL 06/05/2023 6:03 PM SC[facility]MAN [facility] Glucose 105(H) 70 - 99 mg/dL 06/05/2023 6:03 PM SCOWMAN [facility] Blood BLOOD SPECIMEN / Unknown Venipuncture / Unknown 06/04/2023 4:09 PM SCOWMAN 06/04/2023 4:09 PM SCOWMAN Suhail Flores MD LAB - BLOOD ORDERABL ES [facility] [address] [facility], [address] [address] [phone] * (ABNORMAL) Lipid panel reflex to direct LDL Fasting (05/07/2023 4:26 PM SCOWMAN) Cholesterol 247(H) <200 mg/dL 05/08/2023 6:15 PM SCOWMAN [facility] Triglycerides 179(H) <150 mg/dL 05/08/2023 6:15 PM SCOWMAN [facility] Direct Measure HDL 64 >=50 mg/dL 05/08/2023 6:15 PM SCOWMAN [facility] LDL Cholesterol Calculated 147(H) <=100 mg/dL 05/08/2023 6:15 PM SCOWMAN [facility] Non HDL Cholesterol 183(H) <130 mg/dL 05/08/2023 6:15 PM SCOWMAN [facility] Patient Fasting > 8hrs? No 05/08/2023 6:15 PM SCOWMAN [facility] Blood BLOOD SPECIMEN / Unknown Venipuncture / Unknown 05/07/2023 4:26 PM SCOWMAN 05/07/2023 4:26 PM SCOWMAN Narrative [facility] - 05/08/2023 6:15 PM SCOWMAN Cholesterol Desirable: ??<200 mg/dL Triglycerides Normal: ??Less than 150 mg/dL Borderline High: ??150-199 mg/dL High: ??200-499 mg/dL Very High: ??Greater than or equal to 500 mg/dL Direct Measure HDL Female: ??Greater than or equal to 50 mg/dL Male: ??Greater than or equal to 40 mg/dL LDL Cholesterol Desirable: ??<100mg/dL Above Desirable: ??100-129 mg/dL Borderline High: ??130-159 mg/dL High: ??160-189 mg/dL Very High: ??>= 190 mg/dL Non HDL Cholesterol Desirable: ??130 mg/dL Above Desirable: ??130-159 mg/dL Borderline High: ??160-189 mg/dL High: ??190-219 mg/dL Very High: ??Greater than or equal to 220 mg/dL Ludy Hurst PA-C LAB - BLOOD ORDERA BLES Performing Organization Address [facility] Co de Phone Number LABORATORY [facility] [place] [facility] [address] [facility], [address] [phone] * Hepatitis C Screen Reflex to HCV RNA Quant and Genotype (05/28/2018 9:16 AM SCOWMAN) Hepatitis C Antibody Nonreactive NR^Nonre active 05/28/2018 6:26 PM SCOWMAN [facility] Comment: Assay performance characteristics have not been established for newborns, infants, and children Blood specimen (specimen) 05/28/2018 9:16 AM SCOWMAN 05/28/2018 9:17 AM SCOWMAN Ludy Hurst PA-C LAB - BLOOD ORDERA BLES Performing Organization Address [facility] [place] [address] * PAP IMAGED THIN LAYER SCREEN (07/22/2015 12:00 AM CDT) PAP KENNEDY Petersen Report Patient Name: YUNI NATION MR#: [id number] Specimen #: [id number] Collected: 07/22/2015 Received: 07/23/2015 Reported: 07/26/2015 10:14 Ordering Phy(s): LUDY HURST SPECIMEN/STAIN PROCESS: Pap imaged thin layer prep screening (Surepath, FocalPoint with guided screening) ? Pap-Cyto x 1, Reflex HPV if ASCUS/LSIL x 1 SOURCE: Cervical, endocervical Pap imaged thin layer prep screening (Surepath, FocalPoint with guided screening) SPECIMEN ADEQUACY: Satisfactory for evaluation. -Transformation zone component absent. CYTOLOGIC INTERPRETATION: Negative for Intraepithelial Lesion or Malignancy Electronically signed out by: Maia Rich Processed and screened at [facility] CLINICAL HISTORY: LMP: 05/30/07 Post Menopausal, Previous normal pap Date of Last Pap: 09/23/10, Papanicolaou Test Limitations: ??Cervical cytology is a screening test with limited sensitivity; regular screening is critical for cancer prevention; Pap tests are primarily effective for the diagnosis/preventi on of squamous cell carcinoma, not adenocarcinomas or other cancers. TESTING LAB LOCATION: [address] ??[id number] COLLECTION SITE: Client: ??[facility] Cytologic material (specimen) 07/22/2015 07/23/2015 10:38 AM CDT Ludy Hurst PA-C LAB - [facility] SPECIMEN COPATH * COLONOSCOPY (12/05/2010) Kristen Arias PA-C PROCEDURES * (ABNORMAL) Fecal colorectal cancer screen FIT (11/01/2010 7:00 AM CDT) Occult Blood Scn FIT Positive(A ) NEG [facility] Stool specimen (specimen) 11/01/2010 7:00 AM CDT 11/01/2010 1:11 PM CDT Kristen Arias PA-C LAB - STOOLS ORDERABLES [facility] * Mammo Screening digital (bilat) (10/20/2010 8:21 AM CDT) Anatomical Region Laterality Modality Breast Bilateral Other 10/20/2010 8:21 AM CDT Impressions 10/20/2010 1:15 PM CDT SCREENING MAMMOGRAM, BILATERAL, DIGITAL w/CAD - October 20, 2010 BREAST SYMPTOMS: None reported. ?? COMPARISON: Baseline. ?? PARENCHYMAL PATTERN: Almost entirely fatty. COMMENTS: No findings of suspicion for malignancy. IMPRESSION: BI-RADS 1, NEGATIVE. Kristen Arias PA-C IMG MAMMOGRA PHY ORDERABLES from Last 3 Months or Most Recently Relevant to Health Maintenance Additional Health Concerns Active Problems Noted Date Diagnosed Date Patient expresses financial resource strain 07/23 Advance Directives For more information, please contact: [phone] * Full Code (Latest Code Status on File) Date Activated Date Inactivated Comments 01/14/2018 11:34 AM 01/18/2018 3:04 PM Question Answer Comments Code status determined by: Discussion with patie nt/legal decision maker * Full Code Date Activated Date Inactivated Comments 12/11/2017 11:15 AM 01/14/2018 11:34 AM * Full Code Date Activated Date Inactivated Comments 12/03/2017 3:47 AM 12/11/2017 11:15 AM * Full Code Date Activated Date Inactivated Comments 12/03/2017 3:46 AM 12/03/2017 3:47 AM * No Code Status Date Activated Date Inactivated Comments 01/06/2004 1:14 PM 01/06/2004 1:14 PM Care Teams Testing Tech Relationship Specialty Start Date End Date Ludy Hurst PA-C [id number] [place] [address] PCP - General Physician Sales Assistant Displays 10/22/15 Ludy Hurst PA-C [id number] [place] [address] Assigned PCP 06/09/18 Sanjana Blair, MIREYA Personal Advocate & Liaison (PAL) Nurse 04/25/23 Vinita Begum, [facility] Lead Editorial Intern Primary Care - CC 08/06/23 Kathy Edge LICSW [address], [address] [place], [place] [id number] Assigned Behavioral Health Provider 08/14/23 Danae Carrero, W Community Health Worker Primary Care - CC 08/16/23 Enid Ho DNP [address] [place] [phone] Assigned Neuroscience Provider 09/13/23 Kendrick Lopez MD [address] [place] [place] [id number] Cardiovascular Disease 09/28/23
--- OUTSIDE RECORDS SUMMARY | 2023-10-28 00:49 | XMS_ITS | Encounter Summary ---
Author Organization [facility] Address [address] [place] [address]. [place] [address] Care Team Providers Care Highway Maintenance Worker Name Role Phone Ludy Johnson PA-C Primary Care Provider [phone] Ludy Johnson PA-C Unavailable Sanjana Blair RN Unavailable [phone] Vinita Begum DRAWING OPERATOR Unavailable Kathy Edge DISPLAY DECORATOR Unavailable Danae Carrero CHW Unavailable [phone] Enid Ho DNP Unavailable Kendrick Lopez MD Unavailable [phone] Reason for Visit * Reason Comments RECHECK Encounter Details Date Type Department Care Team (Late st Contact Info) Description 10/18/2023 11:00 AM CDT Virtual Visit [facility] Mental Health & Addiction [facility] [address] [facility] [address] [place] [address] Enid Ho, YASMIN [address] [place] [address] Severe episode of recurrent major depressive disorder, without psychotic features (H) Social History Tobacco Use Types Packs/Day Years [...] Answer Date Recorded Do you have housing? (Lyricin g is defined as stable permanent housing and does not include staying ouside in a car, in a tent, in an abandoned building, in an overnight half-way, or couch-surfing.) Yes 04/30/2023 Are you worried [...] on file documented as of this encounter Last Filed Vital Signs Vital Sign Reading Time Taken Comments Blood Pressure - - Pulse - - Temperature - - Respiratory Rate - - Oxygen Saturation - - Inhaled Oxygen Concentration - - Weight - - Height 170.2 cm (5' 7) 10/18/2023 10:18 AM CDT Body Mass Index - - documented in this encounter Patient Instructions * Patient Instructions* Enid Ho DNP - 10/18/2023 11:00 AM CDT For crisis resources, please see the information at the end of this document Thank you for coming to the [facility] MENTAL HEALTH & ADDICTION [facility]. TREATMENT PLAN: MEDICATIONS: - taper off the desvenlafaxine and onto bupropion. Continue remaining medications at current dosages -PSYCHOEDUCATION: CONSULTS/REFERRALS: Continue therapy LABS/PROCEDURES: Please call your [facility] and ask for a lab only appointment at your earliest convenience. If your results are reassuring or normal they will be mailed to you or sent through Comparisim within 7 days. If the lab tests need quick action we will call you with the results. The phone number we willcall with results is # [phone]. FOLLOW UP: Schedule an appointment with me in six weeks or sooner as needed. The intake team shouldbe calling you to schedule. If you dont hear from them, or they were unable to reach you, please call [phone] to schedule. Follow up with primary care provider as planned or for acute medical concerns. Call the psychiatric nurse line with medication questions or concerns at [phone]. Medication Refills: If you need any refills please call your pharmacy and they will contact us. Our fax number for refills is [phone]. Please allow three business for refill processing. If you need to pickle cutter your refill at a new pharmacy, please contact the new pharmacy directly. The new pharmacy will help you get your medications transferred. [facility] Assistance Financial Assistance [phone] [facility] Billing [phone] Central Billing Office, ealth: [phone] [facility] [phone] Medical Records [phone] [facility] Patient Bill of Rights [email or web address] MENTAL HEALTH CRISIS RESOURCES: For a emergency help, please call 911 or go to the nearest Emergency Department. Emergency Walk-In Options: [facility] ([place]): [phone] - Specialized mental health emergency area designed to be [facility] ([place]): [phone] [facility] Acute Psychiatry Services ([place]): [phone] [facility]): [phone] National Crisis Information: Call 988 Suicide and Crisis Lifeline Crisis Text Line (free 13/11): call CRISIS (058857) Crisis or use the texting option by texting 358070. National Suicide Prevention Lifeline: Call 988 Poison Control Center: Trans Lifeline: - Hotline for transgender people of all ages The Mingo Project: - Hotline for LGBT youth List of all [facility] resources: https://ak.gov/dhs/ybaqvj-zq-ibtoo/adults/health-care/mental-health/resources/cr zora-contacts.jsp For Non-Emergency Support: Fast Tracker: Mental Health & Substance Use Disorder Resources - https://www.fasttrackermn.org/ Again thank you for choosing [facility] MENT[facility] & [facility]DICTION [facility] and please let us know how we can best partner with you to improve you and your family's health. You may be receiving a survey regarding this appointment. We would love to have your feedback, bothpositive and negative. The survey is done by an external company, so your answers are anonymous. Patient Education Collaborative Care Psychiatry Service What to Expect Here's what to expect from your Collaborative Care Psychiatry Service (CCPS). About CCPS CCPS means 2 people work together to help you get better. You'll meet with a behavioral health clinician and a psychiatric doctor. A behavioral health clinician helps people with mental health problems by talking with them. A psychiatric doctor helps people by giving them medicine. How it works At every visit, you'll see the behavioral health clinician (BHC) first. They'll talk with you abouthow you're doing and teach you how to feel better. Then you'll see the psychiatric doctor. This doctor can help you deal with troubling thoughts and feelings by giving you medicine. They'll make sure you know the plan for your care. CCPS usually takes 3 to 6 visits. If you need more visits, we may have you start seeing a differentpsychiatric doctor for ongoing care. If you have any questions or concerns, we'll be glad to talk with you. About visits Be open At your visits, please talk openly about your problems. It may feel hard, but it's the best way forus to help you. Cancelling visits If you can't come to your visit, please call us right away at . If you don't cancel at least 24 hours (1 full day) before your visit, that's late cancellation. Being late to visits Being very late is the same as not showing up. You will be a no show if: Your appointment starts with a C, and you're more than 15 minutes late for a 30-minute (half hour) visit. This will also cancel your appointment with the psychiatric doctor. Your appointment is with a psychiatric doctor only, and you're more than 15 minutes late for a 30-minute (half hour) visit. Your appointment is with a psychiatric doctor only, and you're more than 30 minutes late for a 60-minute (full hour) visit. If you cancel late or don't show up 2 times within 6 months, we may end your care. Getting help between visits If you need help between visits, you can call us Sunday to Sunday from 8 a.m. to 4:30 p.m. at . Emergency care Call 911 or go to the nearest emergency department if your life or someone else's life is in danger. Call 988 anytime to reach the national Suicide and Crisis hotline. Medicine refills To refill your medicine, call your pharmacy. You can also call [facility]'s Behavioral Access at , Sunday to Sunday, 8 a.m. to 4:30 p.m. It can take 1 to 3 business days to get arefill. Forms, letters, and tests You may have papers to fill out, like FMLA, short-term disability, and workability. We can help youwith these forms at your visits, but you must have an appointment. You may need more than 1 visit for this, to be in an intensive therapy program, or both. Before we can give you medicine for ADHD, we may refer you to get tested for it or confirm it another way. We may not be able to give you an emotional support animal letter. We don't do mental health checks ordered by the court. We don't do mental health testing, but we can refer you to get tested. Thank you for choosing us for your care. For informational purposes only. Not to replace the advice of your health care provider. Copyright ?? 2021 [facility]. All rights reserved. [employer] [id number] - 04/13. documented in this encounter Progress Notes * Enid Ho DNP - 10/18/2023 11:00 AM CDT Images from the original note were not included. Virtual Visit Details Type of service: Video Visit Originating Location (pt. Location): Home Distant Location (provider location): Off-site Platform used for Video Visit: [employer] PSYCHIATRIC MEDICATION FOLLOW UP APPT Name: Alana Chiu : 1960 Referred by: Ludy Johnson PA-[facility] Patient Care Team: Ludy Johnson PA-C as PCP - General (Physician Threading Machine Operator) Ludy Johnson PA-C as Assigned PCP Sanjana Blair RN as Personal Advocate & Liaison (PAL) (Nurse) Xenia Calderon MD as Assigned Surgical Provider Vinita Begum LSW as Lead Drying Frame Operator (Primary Care - CC) Therapist: none at present due to finances Patient attended the phone/video session alone. Last seen for outpatient psychiatry Return Visit on 09/13/2023. FOLLOWING PLAN PUT INTO PLACE: increase in Abilify to 5 mg Considered IOP or PHP but unfortunately financial barriers limit this option INTERIM HISTORY COMMUNICATIONS FROM PATIENT VIA: none RECORDS AVAILABLE FOR REVIEW: EHR records through [employer] and previous psychiatric progress note. In addition, reviewed the assessment completed by Kathy Edge [facility], dated today HISTORY OF PRESENT ILLNESS CCPS referral for psychiatric medication consult in July 2023. Reports history of depression, anxiety and insomnia. Denies prior psychiatric hospitalizations. Hx of suicidal ideation, no suicide attempts. No history of self-injurious behaviors. Genetically loaded for anxiety, depression and alcohol use. Grew up in an intact home with all basic needs being met. Reports past diagnosis of depression for many years. First sought treatment as an adolescent. Current episode is lasting longer and progressively getting worse. I want to get better. I am not takingcare of myself physically or in any way. Hard to admit, will clean self up but not showering, not cleaning house. It has been going on to this level for a long time. Havent changed sheets in two years, dishes not washed Granddaughter lives with her and she works a lot, almost 19 years old. Son and girlfriend live downstairs. Son is part of financial problem as he is a felon with history of substance use (in recovery) and trouble finding work. She is still covering everything and depleted her 401k. She is currently on a leave of absence. 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 This is very stressful. 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 Off this week and working on [employer] paper work. This is not me. No body should live like this and I beat myself up. I can't stand it but I can't do anything about it Mood complains of ntinues to be and irritable and reactive to minimal triggers FAMILY, MEDICAL, SURGICAL HISTORY REVIEWED. MEDICATION HAVE BEEN REVIEWED AND ARE CURRENT TO THE BEST OF MY KNOWLEDGE AND ABILITY. Single MEDICATIONS Current Outpatient Medications Medication Sig Dispense Refill ARIPiprazole (ABILIFY) 5 MG tablet Take 1 tablet (5 mg) by mouth at bedtime 90 tablet 0 buPROPion (WELLBUTRIN XL) 150 MG 24 hr tablet Take 1 tablet (150 mg) by mouth every morning 30 tablet 1 desvenlafaxine succinate (PRISTIQ) 50 MG 24 hr tablet Take 1 tablet (50 mg) by mouth daily For one week then discontinue 7 tablet 0 betamethasone dipropionate (DIPROSONE) 0.05 % external ointment Apply topically 2 times daily as needed (for irritation) 45 g 1 gabapentin (NEURONTIN) 600 MG tablet Take 1-1.5 tablets (600-900 mg) by mouth at bedtime 135 tablet0 hydrOXYzine HCl (ATARAX) 25 MG tablet TAKE ONE TO TWO TABLETS BY MOUTH EVERY 6 TO 8 HOURS NEEDEDFOR ANXIETY, TAKE TWO TO FOUR TABLETS BY MOUTH NEEDED FOR SLEEP 90 tablet 1 isosorbide mononitrate (IMDUR) 30 MG 24 hr tablet Take 1 tablet (30 mg) by mouth daily - please make cardiology visit for further refills. 90 tablet 0 losartan-hydrochlorothiazide (HYZAAR) 100-12.5 MG tablet Take 1 tablet by mouth daily 90 tablet 3 ondansetron (ZOFRAN ODT) 4 MG ODT tab Take 1 tablet (4 mg) by mouth every 8 hours as needed for nausea (Patient not taking: Reported on 08/09/2023) 15 tablet 1 simvastatin (ZOCOR) 20 MG tablet Take 1 tablet (20 mg) by mouth at bedtime 90 tablet 1 Current Facility-Administered Medications Medication Dose Route Frequency Provider Last Rate Last Admin dexamethasone (DECADRON) injection 1 mL 1 mL Nico Gross MD 1 mL at 07/26/21 172 dexamethasone (DECADRON) injection 1 mL 1 mL Nico Gross MD 1 mL at 06/10/21 1157 lidocaine 1 % injection 1 mL 1 mL Nico Gross MD 1 mL at 07/26/21 172 NOTES ABOUT CURRENT PSYCHOTROPIC MEDICATIONS: desvenlafaxine 100 mg Gabapentin 900 mg Abilify 5 mg, unclear benefit Hydroxyzine as needed, anxiety and panic, has had to use recently PAST PSYCHOTROPIC MEDICATIONS: bupropion was effective and then was not, Sertraline Escitalopram Mirtazapine 15 mg, started in April 2022, initially robustly effective. Started while in [facility]. TODAY PATIENT REPORTS THE FOLLOWING PSYCHIATRIC ROS: Per [facility], Kathy Edge, during today's team-based visit: MH update: Pt reports that her anxiety has been high (snappy). She is crocheting, doing more household tasks despite getting easily overwhelmed and having no energy but she doesn't feel good. She's on an CATHERINE from work, hopes to transition to halfway. She is hoping that if she transitions to [facility] the [employer] will offer her early nursing home with severance. There was some confusion about getting CATHERINE paperwork filled out but it has been. Her son and 19 yo granddaughter live with her. He's only able to contribute a little because his legal record makes working a traditional job difficult. Heusually works for [employer] doing car repair for used cars and gets half the sales but they've only soldone car. Her granddaughter works 2 jobs She pays pt $200/month, pays her own bills (cell phone, carinsurance). She also helps with the family bills as needed. Stresses: pt is on CATHERINE from work and doesn't feel she can return, financial stress Appetite: unremarkable Sleep: unremarkable Therapy: No, pt has financial barriers to being able to do therapy. [facility] offered to check for resources for sliding fee scale. [facility] suggested pt check to see if her company has an EAP. Pt agreed this would be helpful. GEORGETTE: No Preg: NA Interventions: solution focused to find affordable mental health services Most important: increased anxiety, low energy, getting easily overwhelmed, extended FMLA, transition to L[employer]? EXERCISE: Minimal exercise: related to mental health symptoms SIDE EFFECTS: tolerating medications without reported side effects COMPLIANCE: states Adherent to medication regimen REPORTS THE FOLLOWING NEW MEDICAL ISSUES: none PROBLEM: DEPRESSION: no significant improvement 10/18/2023 6:28 AM Last PHQ-9 1. Little interest or pleasure in doing things 1 2. Feeling down, depressed, or hopeless 1 3. Trouble falling or staying asleep, or sleeping too much 1 4. Feeling tired or having little energy 3 5. Poor appetite or overeating 1 6. Feeling bad about yourself 1 7. Trouble concentrating 1 8. Moving slowly or restless 0 Q9: Thoughts of better off /self-harm past 2 weeks 0 PHQ-9 Total Score 9 08/22/2023 8:46 AM 09/12/2023 10:54 AM 10/18/2023 6:28 AM PHQ-9 SCORE PHQ-9 Total Score MyChart 7 (Mild depression) 6 (Mild depression) 9 (Mild depression) PHQ-9 Total Score 7 6 9 PHQ9 score is 9 indicating mild depression. Suicidal ideation: thoughts of being better off PROBLEM: ANXIETY: No change. Endorses psychosocial stressors but nonpharmacological interventions for residual symptoms are not effective GAD7 score is is 17 indicating severe anxiety. 08/07/2023 1:05 PM 08/22/2023 8:47 AM 10/18/2023 6:30 AM LANDON-7 SCORE Total Score 16 (severe anxiety) 4 (minimal anxiety) 17 (severe anxiety) Total Score 16 4 17 17 PROBLEM: SLEEP/INSOMNIA: No change PERTINENT PAST MEDICAL AND SURGICAL HISTORY Past Medical History: Diagnosis Date ANXIETY STATE NOS 08/07/2006 Arthritis Knees Hyperlipidemia LDL goal <130 07/06/2011 HYPERTENSION NOS 08/07/2006 Morbid obesity (H) 08/15/2013 VITALS BP Readings from Last 1 Encounters: 08/22/23 128/72 Pulse Readings from Last 1 Encounters: 08/22/23 88 Wt Readings from Last 1 Encounters: 08/22/23 135.8 kg (299 lb 6.4 oz) Ht Readings from Last 1 Encounters: 10/18/23 1.702 m (5' 7) Estimated body mass index is 46.89 kg/m?? as calculated from the following: Height as of this encounter: 1.702 m (5' 7). Weight as of 08/22/23: 135.8 kg (299 lb 6.4 oz). LABS & IMAGING Recent Labs Lab Test 01/12/22 1430 09/22/20 1553 WBC 8.2 9.5 HGB 16.1* 15.1 HCT 49.0* 47.1* MCV 88 88 PLT 292 288 ANEU -- 5.4 Recent Labs Lab Test 06/04/23 1609 05/07/23 1626 NA 138 139 POTASSIUM 3.8 4.0 CHLORIDE 100 100 CO2 25 26 GLC 105* 90 BAYLEE 9.7 9.6 BUN 24.8* 9.2 CR 0.95 0.70 GFRESTIMATED 67 >90 ALBUMIN -- 3.9 PROTTOTAL -- 7.4 AST -- 19 ALT -- 19 ALKPHOS -- 84 BILITOTAL -- 0.3 Recent Labs Lab Test 08/22/23 0949 05/07/23 1626 CHOL -- 247* LDL -- 147* HDL -- 64 TRIG -- 179* A1C 6.1* 6.4* Recent Labs Lab Test 05/28/18 0916 TSH 3.25 25 OH Vit D2 Date Value Ref Range Status 10/20/2010 <5 ug/L Final 25 OH Vit D3 Date Value Ref Range Status 10/20/2010 36 ug/L Final 25 OH Vit D total Date Value Ref Range Status 10/20/2010 30 - 75 ug/L Final <41 Season, race, dietary intake, and treatment affect the concentration of 78-[id number] D. Values may decrease during winter months and increase during summer months. Values less than 30 ug/L may indicate Vitamin D deficiency. ALLERGY & IMMUNIZATIONS Allergies Allergen Reactions Dilaudid [Hydromorphone] Itching Tolerating morphine and oxycodone fine during this same admission. MEDICAL REVIEW OF SYSTEMS: Ten system review was completed with pertinent positives noted MENTAL STATUS EXAM: General/Constitutional: Appearance: awake, alert, adequately groomed, appeared stated age and is in distress and tearful Attitude: cooperative Eye Contact: good Musculoskeletal: Psychomotor Behavior: no evidence of tardive dyskinesia, dystonia, or tics from the head up Psychiatric: Speech: clear, coherent, regular rate, rhythm, and volume, No pressure speech noted. Associations: no loose associations Thought Process: logical, linear and goal oriented Thought Content: No evidence of suicidal ideation or homicidal ideation, no evidence of psychotic thought, no auditory hallucinations present and no visual hallucinations present Mood: anxious and depressed Affect: full range/stable (normal variation of emotions during exam) and was congruent to speech content. Insight: good Judgment: intact, adequate for safety Impulse Control: intact Neurological: Oriented to: person, place, time, and situation Attention Span and Concentration: Able to attend to the interview Language: intact Recent and Remote Memory: Intact to interview. Not formally assessed. No amnesia. Fund of Knowledge: appropriate SAFETY Feels safe in home: YES Suicidal ideation: Denies History of suicide attempts: No Hx of impulsivity: No Hope for the future: present Hx of Command hallucinations or current psychosis: None endorsed History of Self-injurious behaviors: denies Family member by suicide: not discussed SAFETY ASSESSMENT: Based on all available evidence including the factors cited above, overall Risk for harm is low andis appropriate for outpatient level of care. Recommended that patient call 911 or go to the local ED should there be a change in any of these risk factors. 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 Known issue that I take into account for their medical decisions, no current exacerbations or new concerns ASSESSMENT AND PLAN Problem List as of 10/18/2023 Reviewed: 08/15/2023 4:32 PM by Enid Ho, YASMIN None CONSULTS/REFERRALS: Continue therapy Coordinate care with therapist as needed MEDICAL: None at this time Coordinate care with PCP (Ludy Johnson) as needed Follow up with primary care provider as planned or for acute medical concerns. PSYCHOEDUCATION: Medication side effects and alternatives reviewed. Health promotion activities recommended and reviewed today. All questions addressed. Education and counseling completed regarding risks and benefitsof medications and psychotherapy options. Consent provided by patient/guardian Call the psychiatric nurse line with medication questions or concerns at [phone]. NOWBOXhart may be used to communicate with your provider, but this is not intended to be used for emergencies. [employer].gov is information for patients. It is run by the [place] [employer] and it contains information about all disorders, diseases and all medications. COMMUNITY RESOURCES: CRISIS NUMBERS: Provided in AVS 08/09/2023 National Suicide Prevention Lifeline: 9-076-783-TALK (784-434-4978) Project 2020/resources for a list of additional resources (SOS) [facility] - [phone] Urgent Care Adult Mental Vthilj-[phone] mobile unit/ 13/11 crisis line [facility] -[phone] COPE 13/11 [place] Mobile Team -[phone] (adults)/ [phone] (child) Poison Control Center - OR 102 OR go to nearest ER Crisis Text Line for any crisis 13/11 send this- To: 821219 [facility] ([facility] [phone] National Suicide Prevention Lifeline: 808.510.9992 (TTY: 694.334.5232). Call anytime for help. (www.suicidepreventionlifeline.org) National [place] on Mental Illness (www.mckenna.org): 794.414.6776 or 895-480-1647. Mental Health Association (www.mentalhealth.org): 810.904.8444 or 618-143-3994. [place] Crisis Text Line: Text [place] to 291903 Suicide LifeLine Chat: suicideThe GunBox.org/chat ADMINISTRATIVE BILLING: Level of Medical Decision Making: - At least 1 chronic problem that is not stable - Engaged in prescription drug management during visit (discussed any medication benefits, side effects, alternatives, etc.) The longitudinal plan of care for the diagnosis(es)/condition(s) as documented were addressed during this visit. Due to the added complexity in care, I will continue to support Alana in the subsequent management and with ongoing continuity of care. Patient Status: Patient will continue to be seen for ongoing consultation and stabilization. Signed: Enid Ho, MSN, POWER MANAGER, FMHNP-[facility] Collaborative Care Psychiatry Service (CCPS) Chart documentation done in part with [employer] Voice Recognition software. Although reviewed after completion, some word and grammatical errors may remain. documented in this encounter Nursing Notes * Estrella Jansen - 10/18/2023 11:00 AM CDT Is the patient currently in the state of [place]? YES Visit mode:VIDEO If the visit is dropped, the patient can be reconnected by: VIDEO VISIT: Text to cell phone: Telephone Information: Will anyone else be joining the visit? NO (If patient encounters technical issues they should call [phone] :[phone]) How would you like to obtain your AVS? MyChart Are changes needed to the allergy or medication list? No Are refills needed on medications prescribed by this physician? YES Reason for visit: RECHECK Estrella Jansen VVF documented in this encounter Miscellaneous Notes * Assessment & Plan Note - Enid Ho DNP - 10/24/2023 9:50 PM CDT Associated Problem(s): Behavioral Depression and anxiety are causing functional impairment in multiple domains. Will continue the Abilify. Unclear benefit of the desvenlafaxine and will transition to bupropion XL . Support ongoing leave of absence and disability. Follow-up in six weeks documented in this encounter Plan of Treatment Upcoming Encounters Date Type Department Care Team (Late st Contact Info) Description 11/29/2023 10:30 AM CDT Virtual Visit [facility] Mental Health & Addiction [facility] [address] [place] [address] Kathy Edge LICSW [facility] [address], [address] [place] [address] 11/29/2023 11:00 AM CDT Virtual Visit [facility] Mental [facility] & Addiction [facility] [address] [place] [phone] Enid Ho, YASMIN [address] [place] [address] 12/11/2023 2:45 PM CDT Office Visit [facility] Heart [facility] [address] [facility] [address] [place] [phone] Kendrick Lopez MD [address] [place] [address] documented as of this encounter Goals Goal Patient Goal Type Associated Problems Recent Progress Patient-Stated? Author Create an action plan to increase financial stability Care Plan Patient expresses financial resource strain 10%( 3:26 PM CDT) No Vinita Begum, DRAWING OPERATOR Note: Barriers: Have been supporting my son and his girlfriend who live with me Strengths: Engaged with PCP, mental health support and care coordination Patient expressed understanding of goal: Yes Action steps to achieve this goal: 1. I will make plan to retire as soon as possible. 2. I will contact Social Security Administration to explore my nursing home options and to see if SSD is an option. . 3. I will consult with [employer] about health insurance options. 4. I will make plan with son and his girlfriend and my expectation for their paying monthly rent and expenses. 5. I will access [employer] program for food. documented as of this encounter Visit Diagnoses Diagnosis Severe episode of recurrent major depressive disorder, without psychotic features (H) documented in this encounter Additional Health Concerns Active Problems Noted Date Diagnosed Date Patient expresses financial resource strain 07/23 Assessment Noted Time PHQ-9 Depression Total Score: 9 10/18/19 24 6:28 AM CDT documented as of this encounter Care Teams Highway Maintenance Worker Relationship Specialty Start Date End Date Ludy Johnson PA-C [address] [place] [address] PCP - General Physician Threading Machine Operator 10/22/15 Ludy oJhnson PA-C [address] [place] [address] Assigned PCP 06/09/18 Sanjana Blair, MIREYA Personal Advocate & Liaison (PAL) Nurse 04/25/23 Vinita Begum, [facility] Lead Drying Frame Operator Primary Care - CC 08/06/23 Kathy Edge LICSW [address], [address] [place] [address] Assigned Behavioral Health Provider 08/14/23 Danae Carrero, [facility] Community Health Worker Primary Care - CC 08/16/23 Enid Ho DNP [address] [place] [address] [id number] Assigned Neuroscience Provider 09/13/23 Kendrick Lopez MD [address] [place] [address] Cardiovascular Disease 09/28/23 documented as of this encounter
--- OUTSIDE RECORDS SUMMARY | 2023-10-28 00:49 | XMS_ITS | Encounter Summary ---
Author Organization [facility] Address [address] [place] [address] Care Team Providers Care Manager Math Name Role Phone Ludy Johnson PA-C Primary Care Provider [phone] Ludy Johnson PA-C Unavailable [phone] Sanjana Blair RN Unavailable Vinita Begum SUPPLY CHAIN TECH Unavailable [phone] Kathy Edge TOP DISTRIBUTION EXECUTIVE Unavailable Danae Carrero CHW Unavailable Enid Ho DNP Unavailable Kendrick Lopez MD Unavailable [phone] Reason for Visit * Reason Onset Date Comments Refill Request 09/28/2023 isosorbide monon itrate (IMDUR) 30 MG 24 hr tablet [[id number]] Encounter Details Date Type Department Care Team (Late st Contact Info) Description 09/28/2023 Telephone [facility] Heart [place] [address] [facility] [address] [place] [address] Kendrick Lopez MD [address] [place] [address] Refill Request (isosorbide mononitrate (IMDUR) 30 MG 24 hr tablet [[id number]]) Social History Tobacco Use Types Packs/Day Years Used Date Smoking Tobacco: Every Day Cigarettes 0.5 30 Smokeless Tobacco: Never Comments:08/09/23 using betwe en 10-15 cigs/day down to 3 or 4 a day Alcohol Use Standard Drinks/Week Comments Yes 0 (1 standard drink = 0.6 oz pur e alcohol) very rarely PHQ-2 Answer Date Recorded PHQ-2 Score 2 09/13/2023 Adolescent Education Answer Date Record ed Getting [...] in an abandoned building, in an overnight mcc, or couch-surfing.) Yes 04/30/2023 Are you worried [...] encounter Miscellaneous Notes * Telephone Encounter - Drake Patricia RN - 09/28/2023 10:52 AM CDT Medication refilled per protocol. * Telephone Encounter - Ambrosio Chavis - 09/28/2023 10:42 AM CDT [facility] Phone Message May a detailed message be left on voicemail: yes Reason for Call: Medication Refill Request Has the patient contacted the pharmacy for the refill? Yes Name of medication being requested: isosorbide mononitrate (IMDUR) 30 MG 24 hr tablet [[id number]] Provider who prescribed the medication: Dr. Lopez Pharmacy: [facility] [address] [facility] Date medication is needed: 09/29/2023 Pt states she is out of her medication and would like to pick it up tonight if possible. Pt scheduled to see Dr. Lopez in November. Scheduled pt as new due to first return appt being more than three years out from last appt. Scheduled pt as new for first opening after 3 years since last visit. Action Taken: Other: Cardiology Travel Screening: Not Applicable Thank you! [facility] Date of Service: documented in this encounter Plan of Treatment Upcoming Encounters Date Type Department Care Team (Late st Contact Info) Description 11/29/2023 10:30 AM CDT Virtual Visit [facility] Mental Health & Addiction [address] [address] Kathy Edge LICSW [address] [place] [address] 11/29/2023 11:00 AM CDT Virtual Visit [facility] Health & Addiction [address] [phone] Enid Ho, [facility] [address] [place] [address] 12/11/2023 2:45 PM CDT Office Visit [facility] Heart [facility] [address] [facility] [address] [place] [phone] Kendrick Lopez MD [address] [place] [id number] documented as of this encounter Goals Goal Patient Goal Type Associated Problems Recent Progress Patient-Stated? Author Create an action plan to increase financial stability Care Plan Patient expresses financial resource strain 10%( 4 3:26 PM CDT) Vinita Guerrero LSW Note: Barriers: Have been supporting my son and his girlfriend who live with me Strengths: Engaged with PCP, mental health support and care coordination Patient expressed understanding of goal: Yes Action steps to achieve this goal: 1. I will make plan to retire as soon as possible. 2. I will contact [employer] Administration to explore my halfway options and to see if SSD is an option. . 3. I will consult with [facility] about health insurance options. 4. I will make plan with son and his girlfriend and my expectation for their paying monthly rent and expenses. 5. I will access [employer] program for food. documented as of this encounter Visit Diagnoses Diagnosis Abnormal stress test Other nonspecific abnormal cardiovascular system function study documented in this encounter Additional Health Concerns Active Problems Noted Date Diagnosed Date Patient expresses financial resource strain 07/23 Assessment Noted Time PHQ-9 Depression Total Score: 6 09/12/19 24 10:54 AM CDT documented as of this encounter Care Teams Manager Math Relationship Specialty Start Date End Date Ludy Johnson PA-C [address] [place] [address] PCP - General Physician Drawing In Machine Tender Helper 10/22/15 Ludy Johnson PA-C [address] [place] [address] Assigned PCP 06/09/18 Sanjana Blair, MIREYA Personal Advocate & Liaison (PAL) Nurse 04/25/23 Vinita Begum LSW Lead Celebrity Manager Primary Care - CC 08/06/23 Kathy Edge LICSW [facility] [address], [address] [place] [address] Assigned Behavioral Health Provider 08/14/23 Danae Carrero, [facility] Community Health Worker Primary Care - CC 08/16/23 Enid Ho DNP [address] [place] [address] Assigned Neuroscience Provider 09/13/23 Kendrick Lopez MD [address] [place] [id number] Cardiovascular Disease 09/28/23 documented as of this encounter
--- OUTSIDE RECORDS SUMMARY | 2023-10-28 00:49 | XMS_ITS | Encounter Summary ---
Author Organization [facility] Address [address] [place] [address] Care Team Providers Care Asbestos Brake Lining Finisher Name Role Phone Ludy Johnson PA-C Primary Care Provider [phone] Ludy Johnson PA-C Unavailable Sanjana Blair RN Unavailable [phone] Vinita Begum ADMISSIONS MANAGER Unavailable [phone] Kathy Edge TAPER PRINTED CIRCUIT LAYOUT Unavailable [phone] Danae Carrero CHW Unavailable [phone] Enid Ho DNP Unavailable Encounter Details Date Type Department Care Team (Late st Contact Info) Description 09/13/2023 3:30 PM CDT Virtual Visit [facility] Mental Health & Addiction [address] [address] Kathy Edge, TAPER PRINTED CIRCUIT LAYOUT [facility] - [address] [id number] Depression, unspecified depression type (Primary Dx) Social History Tobacco Use Types Packs/Day Years [...] in an abandoned building, in an overnight [place] [facility], or couch-surfing.) Yes 04/30/2023 Are you worried [...] on file documented as of this encounter Progress Notes * Kathy Edge LICSW - 09/13/2023 3:30 PM CDT [facility] Psychiatry Services [facility] September 13, 2023 Behavioral Health Clinician Progress Note Patient Name: Alana Chiu Service Type: Individual Service Location: MyChart / Email (patient reached) Session Start Time: 330pm Session End Time: 346 pm Session Length: 16 - 37 Attendees: Patient Service Modality: Video Visit: Provider verified identity through the following two step process. Patient provided: Patient photo and Patient Telemedicine Visit: The patient's condition can be safely assessed and treated via synchronous audio and visual telemedicine encounter. Reason for Telemedicine Visit: Patient convenience (e.g. access to timely appointments / distance to available provider) Originating Site (Patient Location): Patient's home Distant Site (Provider Location): Provider Remote Setting- Home Office Consent: The patient/guardian has verbally consented to: the potential risks and benefits of telemedicine (video visit) versus in person care; bill my insurance or make self-payment for services provided; and responsibility for payment of non-covered services. Patient would like the video invitation sent by: My Chart Mode of Communication: Video Conference via Amwell Distant Location (Provider): Off-site As the provider I attest to compliance with applicable laws and regulations related to telemedicine. Visit Activities (Refresh list every visit): [facility] Only Diagnostic Assessment Date: 08/09/2023 Treatment Plan Review Date: 12/14/2023 See Flowsheets for today's PHQ-9 and LANDON-7 results Previous PHQ-9: 08/09/2023 6:27 AM 08/22/2023 8:46 AM 09/12/2023 10:54 AM PHQ-9 SCORE PHQ-9 Total Score MyChart 19 (Moderately severe depression) 7 (Mild depression) 6 (Mild depression) PHQ-9 Total Score 19 19 19 7 6 Previous LANDON-7: 04/30/2023 4:23 PM 08/07/2023 1:05 PM 08/22/2023 8:47 AM LANDON-7 SCORE Total Score 14 (moderate anxiety) 16 (severe anxiety) 4 (minimal anxiety) Total Score 14 16 4 CAROLINA LEVEL: 09/23/2010 2:00 PM CAROLINA Score (Last Two) CAROLINA Raw Score 39 Activation Score 56.4 CAROLINA Level 3 DATA Extended Session (60+ minutes): No Interactive Complexity: No Crisis: No [facility] Patient: No Treatment Objective(s) Addressed in This Session: Target Behavior(s): improved self care and home management Depressed Mood: Feel less tired and more energy during the day Current Stressors / Issues: MH update: Pt reports that her anxiety and mood are not improved. Difficulties with self care and managing her household. Her grandchildren worry about her which bothers her. She has returned back toa hobby she used to enjoy. States that work is her primary stress. 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 Her employer tends to micro managed. She's not eligible to collect her full social security. She has no money in her [employer] because she needed to use it for bills etc. Her son and one of his children live with her. She has told him he will have to start helping more financially. Stresses: work Appetite: unremarkable Sleep: trouble staying asleep Therapy: [facility] offered to make referral but she doesn't have the finances to pay for more tx GEORGETTE: No Preg: NA Interventions: Most important: medication update, pts employer is pressuring her to return to work but she doesn'tfeel ready, needs an extension for her CATHERINE Progress on Treatment Objective(s) / Homework: No improvement - ACTION (Actively working towards change); Intervened by reinforcing change plan / affirming steps taken Motivational Interviewing [place] Intervention: Co-Developed Goal: improved energy, Expressed Empathy/Understanding, Open-ended questions, Reflections: simple and complex, Change talk (evoked), and Reframe Change Talk Expressed by the Patient: Desire to change Ability to change Reasons to change Need to change Committment to change Activation Taking steps Provider Response to Change Talk: E - Evoked more info from patient about behavior change, A - Affirmed patient's thoughts, decisions, or attempts at behavior change, R - Reflected patient's change talk, and S - Summarized patient's change talk statements Also provided psychoeducation about behavioral health condition, symptoms, and treatment options Assessments completed prior to visit: The following assessments were completed by patient for this visit: PROMIS 10-Global Health (all questions and answers displayed): 08/07/2023 1:12 PM 08/09/2023 6:31 AM PROMIS 10 In general, would you say your health is: Poor Poor In general, would you say your quality of life is: Poor Poor In general, how would you rate your physical health? Poor Poor In general, how would you rate your mental health, including your mood and your ability to think? Poor Poor In general, how would you rate your satisfaction with your social activities and relationships? Poor Poor In general, please rate how well you carry out your usual social activities and roles Poor Poor To what extent are you able to carry out your everyday physical activities such as walking, climbing stairs, carrying groceries, or moving a chair? A little Moderately In the past 7 days, how often have you been bothered by emotional problems such as feeling anxious,depressed, or irritable? Always Always In the past 7 days, how would you rate your fatigue on average? Severe Moderate In the past 7 days, how would you rate your pain on average, where 0 means no pain, and 10 means worst imaginable pain? 3 1 In general, would you say your health is: 1 1 In general, would you say your quality of life is: 1 1 In general, how would you rate your physical health? 1 1 In general, how would you rate your mental health, including your mood and your ability to think? 11 In general, how would you rate your satisfaction with your social activities and relationships? 1 1 In general, please rate how well you carry out your usual social activities and roles. (This includes activities at home, at work and in your community, and responsibilities as a parent, child, spouse, employee, friend, etc.) 1 1 To what extent are you able to carry out your everyday physical activities such as walking, climbing stairs, carrying groceries, or moving a chair? 2 3 In the past 7 days, how often have you been bothered by emotional problems such as feeling anxious,depressed, or irritable? 5 5 In the past 7 days, how would you rate your fatigue on average? 4 3 In the past 7 days, how would you rate your pain on average, where 0 means no pain, and 10 means worst imaginable pain? 3 1 Global Mental Health Score 4 4 4 Global Physical Health Score 9 11 11 PROMIS TOTAL - SUBSCORES 13 15 15 PROMIS 10-Global Health (only subscores and total score): 08/07/2023 1:12 PM 08/09/2023 6:31 AM PROMIS-10 Scores Only Global Mental Health Score 4 4 4 Global Physical Health Score 9 11 11 PROMIS TOTAL - SUBSCORES 13 15 15 Care Plan review completed: Yes Medication Review: No changes to current psychiatric medication(s) Medication Compliance: Yes Changes in Health Issues: None reported Chemical Use Review: Substance Use: Chemical use reviewed, no active concerns identified Tobacco Use: No current tobacco use. Assessment: Current Emotional / Mental Status (status of significant symptoms): Risk status (Self / Other harm or suicidal ideation) Patient denies a history of suicidal ideation, suicide attempts, self-injurious behavior, homicidalideation, homicidal behavior, and and other safety concerns Patient denies current fears or concerns for personal safety. Patient denies current or recent suicidal ideation or behaviors. Patient denies current or recent homicidal ideation or behaviors. Patient denies current or recent self injurious behavior or ideation. Patient denies other safety concerns. A safety and risk management plan has not been developed at this time, however patient was encouraged to call [place] [phone] should there be a change in any of these risk factors. Appearance: Appropriate Eye Contact: Good Psychomotor Behavior: Normal Attitude: Cooperative Orientation: All Speech Rate / Production: Normal Volume: Normal Mood: Depressed Affect: Tearful Thought Content: Clear Thought Form: Coherent Logical Insight: Good Diagnoses: 1. Depression, unspecified depression type Collateral Reports Completed: Collaborated with [facility] team Plan: (Homework, other): Patient was given information about behavioral services and encouraged to schedule a follow up appointment with the clinic [facility] in 1 month. She was also given information about mental health symptoms and treatment options . CD Recommendations: No indications of CD issues. Kathy Edge, [facility] Integrated Primary Care Behavioral Health Treatment Plan Patient's Name: Alana Chiu Date Of : 1960 Date of Creation: 09/13/2023 Date Treatment Plan Last Reviewed/Revised: pending DSM5 Diagnoses: 296.32 (F33.1) Major Depressive Disorder, Recurrent Episode, Moderate With anxious distress Psychosocial / Contextual Factors: financial stress PROMIS (reviewed every 90 days): PROMIS-10 Scores 08/07/2023 1:12 PM 08/09/2023 6:31 AM PROMIS-10 Scores Only Global Mental Health Score 4 4 4 Global Physical Health Score 9 11 11 PROMIS TOTAL - SUBSCORES 13 15 15 Referral / Collaboration: Collaborated with [facility] team . Anticipated number of session for this episode of care: 10-12 Anticipation frequency of session: Monthly Anticipated Duration of each session: 16-37 minutes Treatment plan will be reviewed in 90 days or when goals have been changed. MeasurableTreatment Goal(s) related to diagnosis / functional impairment(s) Goal 1: Patient will experience improved depression ???I will know I've met my goal when I have energy, be wanting to take care of myself and my home.??? Objective #A (Patient Action) Patient will Feel less tired and more energy during the day . Status: New - Date: 09/13/2023 Intervention(s) [facility] provided psycho-education for symptom management including the following: https://www.Ads-Fiube.com/watch?v=Ko0wzDyKrF5 https://www.Ads-Fiube.com/watch?v=7-6Z2FmNzfV https://[facility]/mindfulness-programs/hclvfqiyyup-yfrvr-cnsohg- reduction Slow breathing. When you're anxious, your breathing becomes faster and shallower. Try deliberately slowing down your breathing. Count to three as you breathe in slowly - then count to three as you breathe out slowly. Progressive muscle relaxation. Find a quiet location. Close your eyes and slowly tense and then relax each of your muscle groups from your toes to your head. Hold the tension for three seconds and then release quickly. This can help reduce the feelings of muscle tension that often comes with anxiety. Stay in the present moment. Anxiety can make your thoughts live in a terrible future that hasn't happened yet. Try to bring yourself back to where you are. Practising meditation can help. Healthy lifestyle. Keeping active, eating well, going out into nature, spending time with family and friends, reducing stress and doing the activities you enjoy are all effective in reducing anxiety and improving your wellbeing. Take small acts of bravery. Avoiding what makes you anxious provides some relief in the short term,but can make you more anxious in the terminal system operator. Try approaching something that makes you anxious - even in a small way. The way through anxiety is by learning that what you fear isn't likely to happen - and if it does, you'll be able to cope with it. Challenge your self-talk. How you think affects how you feel. Anxiety can make you overestimate thedanger in a situation and underestimate your ability to handle it. Try to think of different interpretations to a situation that's making you anxious, rather than jumping to the worst-case scenario. Look at the facts for and against your thought being true. Plan worry time. It's hard to stop worrying entirely so set aside some time to indulge your worries. Even 10 minutes each evening to write them down or go over them in your head can help stop your worries from taking over at other times. Get to know your anxiety. Keep a diary of when it's at it's best - and worst. Find the patterns andplan your week - or day - to proactively manage your anxiety. Learn from others. Talking with others who also experience anxiety - or are going through somethingsimilar - can help you feel less alone. Visit our Online Forums to connect with others. Be kind to yourself. Remember that you are not your anxiety. You are not weak. You are not inferior. You have a mental health condition. It's called anxiety. Body based skills: Change body temperature by holding ice cube, running hands under cold water, drinking cold water. Eat an altoid mint or other strongly flavored mint candy or sour candy like Warheads or lemon drops. The sour taste will quickly distract from the anxiety and the sweet flavor at theend is rewarding to the brain. Box Breathing: Step 1: Breathe in, counting to four slowly. Feel the air enter your lungs. Step 2: Hold your breath for 4 seconds. Try to avoid inhaling or exhaling for 4 seconds. Step 3: Slowly exhale through your mouth for 4 seconds. Step 4: Repeat steps 1 to 3 until you feel re-centered. 5 Things exercise: find 5 things in the environment that are the same color, 4 that are a same shape, 3 that are the same size, 2 smells, 1 sound [facility] provided psycho-education on Acceptance and Commitment skills including: -values clarification -behavioral activation planning including overcoming barriers -mindfulness -cognitive diffusion skill -facilitate self acceptance [facility] provided psycho-education on sleep skills including: -sleep hygiene -tracking sleep schedule -creating sleep routine [facility] provided psycho-education on DBT skills -mindfulness -mood regulation techniques -5 things exercise -somatic regulation skills (taste of something sweet or sour, notice smells, touch/feel of things in the environment, physical activity such as dancing, walking) [facility] provided psycho-education of CBT skills including the following: -challenging destructive thinking -re-framing -behavioral activation -journaling -mood/behavioral tracking -exposure response -mood regulation (deep breathing, somatic skills) Patient has reviewed and agreed to the above plan. ZULLY Majano September 13, 2023 documented in this encounter Plan of Treatment Upcoming Encounters Date Type Department Care Team (Late st Contact Info) Description 11/29/2023 10:30 AM CDT Virtual Visit [facility] Mental Health & Addiction [facility] [address] [place] [address] Kathy Edge LICSW [facility] [address] [place] [address] 11/29/2023 11:00 AM CDT Virtual Visit [facility] Mental Health & Addiction [facility] [address] [place] [address] Enid Ho DNP [address] [place], [place] [address] 12/11/2023 2:45 PM CDT Office Visit [facility] [address] [facility] [address] [place] [phone] Kendrick Lopez MD [address] [place] [id number] documented as of this encounter Goals Goal Patient Goal Type Associated Problems Recent Progress Patient-Stated? Author Create an action plan to increase financial stability Care Plan Patient expresses financial resource strain 10%( 3:26 PM CDT) No Vinita Begum, ALEXI Note: Barriers: Have been supporting my son and his girlfriend who live with me Strengths: Engaged with PCP, mental health support and care coordination Patient expressed understanding of goal: Yes Action steps to achieve this goal: 1. I will make plan to retire as soon as possible. 2. I will contact Social Security Administration to explore my longterm options and to see if SSD is an option. . 3. I will consult with [facility] about health insurance options. 4. I will make plan with son and his girlfriend and my expectation for their paying monthly rent and expenses. 5. I will access [employer] program for food. documented as of this encounter Visit Diagnoses Diagnosis Depression, unspecified depression type- Primary documented in this encounter Additional Health Concerns Active Problems Noted Date Diagnosed Date Patient expresses financial resource strain 07/23 Assessment Noted Time PHQ-9 Depression Total Score: 6 09/12/19 24 10:54 AM CDT documented as of this encounter Care Teams Asbestos Brake Lining Finisher Relationship Specialty Start Date End Date Ludy Johnson PA-C [address] [place] [address] PCP - General Physician Millwork Estimator 10/22/15 Ludy Johnson PA-C [address] [place] [address] Assigned PCP 06/09/18 Sanjana Blair, MIREYA Personal Advocate & Liaison (PAL) Nurse 04/25/23 Vinita Begum, [facility] Lead Gynecologist Primary Care - CC 08/06/23 Kathy Edge LICSW [address], [address] [place], [place] [address] Assigned Behavioral Health Provider 08/14/23 Danae Carrero, W Community Health Worker Primary Care - CC 08/16/23 Enid Ho DNP [address] [place] [address] Assigned Neuroscience Provider 09/13/23 documented as of this encounter
--- OUTSIDE RECORDS SUMMARY | 2023-10-28 00:49 | XMS_ITS | Encounter Summary ---
Author Organization [facility] Address [address] [place] [address]. [place] [address] Care Team Providers Care Online Merchandising Coordinator Name Role Phone Ludy Johnson PA-C Primary Care Provider [phone] Ludy Johnson PA-C Unavailable Sanjana Blair RN Unavailable Vinita Begum BUSINESS AGENT Unavailable Kathy Edge BARTENDER MANAGER Unavailable Danae Carrero CHW Unavailable Enid Ho DNP Unavailable Kendrick Lopez MD Unavailable Reason for Visit * Reason Onset Date Comments Medication Refill Refill Request 09/20/2023 Aripiprazole 2mg Encounter Details Date Type Department Care Team (Late st Contact Info) Description 09/20/2023 Refill [facility] Mental Health & Addiction [facility] [address] [place] [address] [address] [place] [address] Enid Ho, YASMIN [address] [place], [place] [phone] Medication Refill; Refill Request (Aripiprazole 2mg) Social History Tobacco Use Types Packs/Day Years [...] in an abandoned building, in an overnight senior living, or couch-surfing.) Yes 04/30/2023 Are you worried [...] encounter Miscellaneous Notes * Telephone Encounter - Aide Ruvalcaba RN - 10/05/2023 4:09 PM CDT Images from the original note were not included. Date of Last Office Visit: 09/13/2023 Date of Next Office Visit: 10/18/2023 No shows since last visit: none Cancellations since last visit: none Medication requested: aripiprazole (ABILIFY) 2 MG tablet Date last ordered: 08/09/2023 Qty: 30 Refills: 1 Take 1 tablet (2 mg) by mouth daily 1/2 tablet oral daily for one week then increase to 1 tablet thereafter. Review of [place] TIGHTENER?: n/a for this medication Lapse in medication adherence greater than 5 days?: no If yes, call patient and gather details: n/a Medication refill request verified as identical to current order?: yes Result of Last DAM, VPA, Li+ Level, CBC, or Carbamazepine Level (at or since last visit): Hgb A1c on 08/22/2023 was 6.1 Lipid panel 05/07/2023 Last visit treatment plan: Problem List as of 09/13/2023 Reviewed: 08/15/2023 4:32 PM by Enid Ho DNP Noted Behavioral Last System Assessment & Plan 09/13/2023 Virtual Visit Edited 09/19/2023 9:45 PM by Enid Ho DNP Tolerated the Abilify with partial improvement. Will increase Abilify to 5 mg. Continue remaining medications at current dosages. Support ongoing disability and the following letter is made availablefor patient to provide to employer, follow-up in 4 weeks RN denied this refill request as this dose was discontinued at 09/13/2023 appointment. Aide Ruvalcaba, RN on 10/05/2023 at 4:16 PM documented in this encounter Plan of Treatment Upcoming Encounters Date Type Department Care Team (Late st Contact Info) Description 11/29/2023 10:30 AM CDT Virtual Visit [facility] Mental Health & Addiction [address] [phone] Kathy Edge LICSW [facility] [address] [place] [address], [address] [place] [address] 11/29/2023 11:00 AM CDT Virtual Visit [facility] & [facility] [place] [address] [facility] [place] [place] [address] Enid Ho DNP [address] [place] [address] 12/11/2023 2:45 PM CDT Office Visit [facility] [address] [facility] [address] [place] [phone] Kendrick Lopez MD [address] [place] [address] documented as of this encounter Goals Goal Patient Goal Type Associated Problems Recent Progress Patient-Stated? Author Create an action plan to increase financial stability Care Plan Patient expresses financial resource strain 10%( 4 3:26 PM CDT) Vinita Guerrero, ALEXI Note: Barriers: Have been supporting my [...] option. . 3. I will consult with [facility] about health insurance options. 4. I will make plan with son and his girlfriend and my expectation for their paying monthly rent and expenses. 5. I will access [employer] program for food. documented as of this encounter Visit Diagnoses Diagnosis Severe episode of recurrent major depressive disorder, without psychotic features (H) documented in this encounter Additional Health Concerns Active Problems Noted Date Diagnosed Date Patient expresses financial resource strain 07/23 Assessment Noted Time PHQ-9 Depression Total Score: 6 09/12/19 24 10:54 AM CDT documented as of this encounter Care Teams Online Merchandising Coordinator Relationship Specialty Start Date End Date Ludy Johnson PA-C [address] [place] [address] PCP - General Physician Blind Stitch Machine Operator 10/22/15 Ludy Johnson PA-C [address] [place] [address] Assigned PCP 06/09/18 Sanjana Blair, RN Personal Advocate & Liaison (PAL) Nurse 04/25/23 Vinita Begum, [facility] Lead Knit Goods Washer Primary Care - CC 08/06/23 Kathy Edge [facility] [address], [address] [place], [place] [phone] Assigned Behavioral Health Provider 08/14/23 Danae Carrero, [facility] Community Health Worker Primary Care - CC 08/16/23 Enid Ho, YASMIN [address] [place] [id number] Assigned Neuroscience Provider 09/13/23 Kendrick Lopez MD [address] [place] [address] [phone] Cardiovascular Disease 09/28/23 documented as of this encounter
--- OUTSIDE RECORDS SUMMARY | 2023-10-28 00:49 | XMS_ITS | Encounter Summary ---
Author Organization [facility] Address [address] [place] [address]. [place] [address] Care Team Providers Care Automotive Quality Manager Name Role Phone Ludy Johnson PA-C Primary Care Provider [phone] Ludy Johnson PA-C Unavailable [phone] Sanjana Blair RN Unavailable Vinita Begum MANAGEMENT SPECIALIST Unavailable [phone] Kathy Edge MEAT GRADER Unavailable Danae Carrero CHW Unavailable Enid Ho DNP Unavailable [phone] Kendrick Lopez MD Unavailable Reason for Visit * Reason Onset Date Comments Forms 10/16/2023 [employer] Leave Request Number: [id number] Encounter Details Date Type Department Care Team (Late st Contact Info) Description 10/16/2023 Telephone [facility] [id number] [place] [phone] Ludy Johnson PA-C [address] [place] [id number] Forms ([employer] Leave Request Number: [id number]) Social History Tobacco Use Types Packs/Day Years Used Date Smoking Tobacco: Every Day Cigarettes 0.5 30 Smokeless Tobacco: Never Comments:4/18/24 using betwe en 10-15 cigs/day down to [...] in an abandoned building, in an overnight detention, or couch-surfing.) Yes 04/30/2023 Are you worried [...] Telephone Encounter - Enid Ho DNP - 10/17/2023 5:29 PM CDT [facility] reached out to patient and she is scheduled to see this provider this week. Will discuss at this time. Enid Ho DNP, CUSTOMER CARE REPRESENTATIVE, FMHNP-BC, * Telephone Encounter - Aide Ruvalcaba RN - 10/17/2023 10:25 AM CDT RN received FMLA paperwork via Right Fax for this patient. The information was emailed to Enid and printed an placed in her in-box in [facility] Aide Ruvalcaba RN on 10/17/2023 at 10:26 AM * Telephone Encounter - Jojo Nunez - 10/17/2023 9:32 AM CDT Faxed form to provider Enid Ho at Psychiatry at fax number: [phone]. Called pt to inform form was faxed, 10/17/2023. Corrina Nunez/GUERLINE * Telephone Encounter - Ludy Johnson PA-C - 10/17/2023 6:52 AM CDT Please see Psychiatry encounter from 10/09/23. FMLA should go to Psychiatry now. In my outbox. Please fax to them. Call Alana to inform when faxed to Psychiatry. Ludy Johnson PA-C * Telephone Encounter - Nusrat Oglesby - 10/16/2023 2:49 PM CDT Forms/Letter Request Type of form/letter: [facility] Request Number: [id number] Do we have the form/letter: Yes: PCP in basket Who is the form from? Insurance comp Where did/will the form come from? form was faxed in When is form/letter needed by: 11/01/2023 How would you like the form/letter returned: GUERLINE Mullen documented in this encounter Plan of Treatment Upcoming Encounters Date Type Department Care Team (Late st Contact Info) Description 11/29/2023 10:30 AM CDT Virtual Visit [facility] Mental Health & Addiction [facility] [address] [place] [address] Kathy Edge LICSW [facility] [address], [address] [place] [address] 11/29/2023 11:00 AM CDT Virtual Visit [facility] Mental Health & Addiction [facility] [address] [place] [address] Enid Ho, [facility] [address] [place] [address] 12/11/2023 2:45 PM CDT Office Visit [facility] Heart [facility] [address] [facility] [address] [place] [phone] Kendrick Lopez MD [address] [place] [phone] documented as of this encounter Goals Goal Patient Goal Type Associated Problems Recent Progress Patient-Stated? Author Create an action plan to increase financial stability Care Plan Patient expresses financial resource strain 10%( 4 3:26 PM CDT) Vinita Guerrero, MANAGEMENT SPECIALIST Note: Barriers: Have been supporting my son and his girlfriend who live with me Strengths: Engaged with PCP, mental health support and care coordination Patient expressed understanding of goal: Yes Action steps to achieve this goal: 1. I will make plan to retire as soon as possible. 2. I will contact Social Security Administration to explore my mcfp options and to see if SSD is [...] Time PHQ-9 Depression Total Score: 6 09/12/19 10:54 AM CDT documented as of this encounter Care Teams Automotive Quality Manager Relationship Specialty Start Date End Date Ludy Johnson PA-C [address] [place] [address] PCP - General Physician Doctor Of Nurse Anesthesia 10/22/15 Ludy Johnson PA-C [address] [place] [address] Assigned PCP 06/09/18 Sanjana Blair, MIREYA Personal Advocate & Liaison (PAL) Nurse 04/25/23 Vinita Begum, [facility] Lead Corporate Webmaster Primary Care - CC 08/06/23 Kathy Edge [facility] [address], [address] [place], [place] [address] Assigned Behavioral Health Provider 08/14/23 Danae Carrero, [facility] Community Health Worker Primary Care - CC 08/16/23 Enid Ho DNP [address] [place] [phone] Assigned Neuroscience Provider 09/13/23 Kendrick Lopez MD [address] [place] [id number] Cardiovascular Disease 09/28/23 documented as of this encounter
--- OUTSIDE RECORDS SUMMARY | 2023-10-28 00:49 | XMS_ITS | Encounter Summary ---
Author Organization [facility] Address [address] [place] [address]. [place] [address] Care Team Providers Care Manager Benefit Name Role Phone Ludy Johnson PA-C Primary Care Provider [phone] Ludy Johnson PA-C Unavailable [phone] Sanjana Blair RN Unavailable [phone] Vinita Begum INSIDE WIREMAN Unavailable [phone] Kathy Edge ACCREDITED FARM MANAGER Unavailable Danae Carrero CHW Unavailable Encounter Details Date Type Department Care Team (Late st Contact Info) Description 09/04/2023 Documentation Only [facility] Mental Health & Addiction [facility] [address] [address] [place] [address] Enid Ho, [facility] [address] [place], [place] [phone] Social History Tobacco Use Types Packs/Day Years Used Date Smoking Tobacco: Every Day Cigarettes 0.5 30 Smokeless Tobacco: Never Comments:08/09/23 using betwe en 10-15 cigs/day down to 3 or 4 a day Alcohol Use Standard Drinks/Week Comments Yes 0 (1 standard drink = 0.6 oz pur e alcohol) very rarely PHQ-2 Answer Date Recorded PHQ-2 Score 2 08/22/2023 Adolescent Education Answer Date Record ed Getting [...] in an abandoned building, in an overnight usp, or couch-surfing.) Yes 04/30/2023 Are you worried [...] as of this encounter Progress Notes * Enid Ho DNP - 09/04/2023 9:06 AM CDT STD paper work received. Working on completing. Unfortunately there is no RELEASE OF INFORMATION inplace. Will attempt to have patient sign Release of Information and provide the information requested along with notes when completed. Enid Ho DNP, BUTTON DECORATING MACHINE OPERATOR, FMHNP-BC, [employer] release obtained. Paper work completed and faxed to [facility]. Copy uploaded into chart. documented in this encounter Plan of Treatment Upcoming Encounters Date Type Department Care Team (Late st Contact Info) Description 11/29/2023 10:30 AM CDT Virtual Visit [facility] Mental Health & Addiction [facility] [address] [address] [place] [address] Kathy Edge LICSW [facility] [address], [address] [place] [address] 11/29/2023 11:00 AM CDT Virtual Visit [facility] Mental Health & Addiction [facility] [address] [place] [address] Enid Ho, [facility] [address] [place] [address] 12/11/2023 2:45 PM CDT Office Visit [facility] Heart [facility] [address] [place] [address] [address] [place] [phone] Kendrick Lopez MD [address] [place] [phone] documented as of this encounter Goals Goal Patient Goal Type Associated Problems Recent Progress Patient-Stated? Author Create an action plan to increase financial stability Care Plan Patient expresses financial resource strain 10%( 3:26 PM CDT) No Vinita Begum, INSIDE WIREMAN Note: Barriers: Have been supporting my son and his girlfriend who live with me Strengths: Engaged with PCP, mental health support and care coordination Patient expressed understanding of goal: Yes Action steps to achieve this goal: 1. I will make plan to retire as soon as possible. 2. I will contact Social Security Administration to explore my chcf options and to see if SSD is an option. . 3. I will consult with [facility] about health insurance options. 4. [...] Assessment Noted Time PHQ-9 Depression Total Score: 7 08/22/19 24 8:46 AM CDT documented as of this encounter Care Teams Manager Benefit Relationship Specialty Start Date End Date Ludy Johnson PA-C [address] [place] [address] PCP - General Physician Stacker Operator 10/22/15 Ludy Johnson PA-C [address] [place] [address] Assigned PCP 06/09/18 Sanjana Blair, MIREYA Personal Advocate & Liaison (PAL) Nurse 04/25/23 Vinita Begum, INSIDE WIREMAN Lead Silver Miner Blasting Primary Care - CC 08/06/23 Kathy Edge, [facility] [address], [address] [place] [address] Assigned Behavioral Health Provider 08/14/23 Danae Carrero, W Community Health Worker Primary Care - CC 08/16/23 documented as of this encounter
--- OUTSIDE RECORDS SUMMARY | 2023-10-28 00:49 | XMS_ITS | Encounter Summary ---
Author Organization [facility] Address [address] [place] [address]. [place] [address] Care Team Providers Care Hvac Operations Technician Name Role Phone Ludy Johnson PA-C Primary Care Provider [phone] Ludy Johnson PA-C Unavailable [phone] Sanjana Blair RN Unavailable [phone] Vinita Begum ORACLE PROGRAMMER Unavailable Kathy Edge DIRECTOR OF PHOTOGRAPHY Unavailable [phone] Danae Carrero CHW Unavailable Enid Ho DNP Unavailable [phone] Reason for Visit * Reason Comments RECHECK Encounter Details Date Type Department Care Team (Late st Contact Info) Description 09/13/2023 4:00 PM CDT Virtual Visit [facility] & [facility] [address] [place] [address] Enid Ho, DNP [address] [place] [address] Severe episode of recurrent major depressive disorder, without psychotic features (H) (Primary Dx) Social History Tobacco Use Types [...] in an abandoned building, in an overnight long-term, or couch-surfing.) Yes 04/30/2023 Are you worried [...] on file documented as of this encounter Patient Instructions * Patient Instructions* Enid Ho, YASMIN - 09/13/2023 4:00 PM CDT For crisis resources, please see the information at the end of this document Thank you for coming to the [facility]. TREATMENT PLAN: MEDICATIONS: - increase the Abilify to 5 mg. Continue remaining medications at current dosages -PSYCHOEDUCATION: Risks of antipsychotic medications: metabolic disorder and movement disorder, andthe need for blood monitoring of sugar and lipids/cholesterol while taking the medication. CONSULTS/REFERRALS: Recommend therapy but finances is a barrier currently LABS/PROCEDURES: Please call your [facility] clinic and ask for a lab only appointment at your earliest convenience. If your results are reassuring or normal they will be mailed to you or sent through Watchwith within 7 days. If the lab tests need quick action we will call you with the results. The phone number we willcall with results is # [phone]. FOLLOW UP: Schedule an appointment with me in four weeks or sooner as needed. The intake team should be calling you to schedule. If you dont hear from them, or they were unable to reach you, please call [phone] to schedule. Follow up with primary care provider as planned or for acute medical concerns. Call the psychiatric nurse line with medication questions or concerns at [phone]. Medication Refills: If you need any refills please call your pharmacy and they will contact us. Our fax number for refills is [phone]. Please allow three business for refill processing. If you need to pickle processor your refill at a new pharmacy, please contact the new pharmacy directly. The new pharmacy will help you get your medications transferred. Sonru.comnew franken Assistance Financial Assistance [phone] [facility] Billing [phone] Central Billing Office, [facility]: [phone] [facility] Billing [phone] Medical Records [phone] [facility] Patient Bill of Rights [email or web address] MENTAL HEALTH CRISIS RESOURCES: For a emergency help, please call 911 or go to the nearest Emergency Department. Emergency Walk-In Options: EmPATH Unit @ [facility] ([place]): [phone] - Specialized mental health emergency area designed to be calming [facility] ([place]): [phone] [facility] Acute Psychiatry Services ([place]): [phone] [facility]): [phone] National Crisis Information: Call 988 Suicide and Crisis Lifeline Crisis Text Line (free 13/11): call CRISIS (660946) Crisis or use the texting option by texting 142459. National Suicide Prevention Lifeline: Call 988 Poison Control Center: Trans Lifeline: - Hotline for transgender people of all ages The Mingo Project: - Hotline for LGBT youth List of all [facility] resources: https://wa.gov/dhs/qebjtk-xt-wmjdw/adults/health-care/mental-health/resources/cr zora-contacts.jsp For Non-Emergency Support: Fast Tracker: Mental Health & Substance Use Disorder Resources - https://www.ugichemtrackCyberArk Software, Ltd.n.org/ Again thank you for choosing [facility] and please let us know how [...] call your pharmacy. You can also call [facility]'s Behavioral Access at , Sunday to [...] your health care provider. Copyright ?? 2021 [facility]. All rights reserved. Talk Local [id number] - 04/13. documented in this encounter Progress Notes * Enid Ho DNP - 09/13/2023 4:00 PM CDT Images from the original note were not included. Virtual Visit Details Type of service: Video Visit Originating Location (pt. Location): Home Distant Location (provider location): Off-site Platform used for Video Visit: BuildingIQ PSYCHIATRIC MEDICATION FOLLOW UP APPT Name: Alana Chiu : 1960 Referred by: Ludy Johnson [facility] Patient Care Team: Ludy Johnson PA-C as PCP - General (Physician Trim Die Maker) Ludy Johnson PA-C as Assigned PCP Sanjana Blair RN as Personal Advocate & Liaison (PAL) (Nurse) Xenia Calderon MD as Assigned Surgical Provider Vinita Begum LSW as Lead Machine Plate Stacker (Primary Care - CC) Therapist: none at present due to finances Patient attended the phone/video session alone. Last seen for outpatient psychiatry Consultation on 08/09/2023. FOLLOWING PLAN PUT INTO PLACE: Patient with a long history of depression and multiple medication trials. Had a recent exacerbation of symptoms in April 2023 which led to presenting to the emergencyroom and staying on the empathy unit at [facility]. The mirtazapine was initially robustly helpful. However continues with ongoing depressive symptoms. At this time will augment with Abilify titrated to 2 mg. Because the gabapentin is sedating, will change this to 3 to 600 mg at night and can DC the mirtazapine to help streamline medications. Continue remaining medications at current dosages. Follow-up in 6-8 weeks. Metabolic labs including HgbA1c and fasting lipids on file from 04/2023 Considered IOP or PHP but unfortunately financial barriers limit this option INTERIM HISTORY COMMUNICATIONS FROM PATIENT VIA: none RECORDS AVAILABLE FOR REVIEW: EHR records through [facility] and previous psychiatric progress note. In addition, reviewed the assessment completed by Kathy Edge [facility], dated today HISTORY OF PRESENT ILLNESS CCPS [...] absence. 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 This is very stressful. 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 Off this week and working on imo.im paper work. This is not me. No [...] Medications Medication Sig Dispense Refill ARIPiprazole (ABILIFY) 2 MG tablet Take 1 tablet (2 mg) by mouth daily 1/2 tablet oral daily for one week then increase to 1 tablet thereafter. 30 tablet 1 ARIPiprazole (ABILIFY) 5 MG tablet Take 1 tablet (5 mg) by mouth at bedtime 30 tablet 1 betamethasone dipropionate (DIPROSONE) 0.05 % external ointment Apply topically 2 times daily as needed (for irritation) 45 g 1 desvenlafaxine (PRISTIQ) 100 MG 24 hr tablet Take 1 tablet (100 mg) by mouth daily 90 tablet 1 gabapentin (NEURONTIN) 600 MG tablet Take [...] tablet by mouth daily 90 tablet 3 simvastatin (ZOCOR) 20 MG tablet Take 1 tablet (20 mg) by mouth at bedtime 90 tablet 1 ondansetron (ZOFRAN ODT) 4 MG ODT tab Take 1 tablet (4 mg) by mouth every 8 hours as needed for nausea (Patient not taking: Reported on 08/09/2023) 15 tablet 1 Current Facility-Administered Medications Medication Dose Route Frequency Provider Last Rate Last Admin dexamethasone (DECADRON) injection 1 mL 1 mL Nico Gross MD 1 mL at 07/26/21 1727 dexamethasone (DECADRON) injection 1 mL 1 mL Nico Gross MD 1 mL at 06/10/21 1157 lidocaine 1 % injection 1 mL 1 mL Nico Gross MD 1 mL at 07/26/21 1727 NOTES ABOUT CURRENT PSYCHOTROPIC MEDICATIONS: desvenlafaxine 100 mg Gabapentin 600 mg , falls asleep ok. Wakes at 3-4 to go to the bathroom, then can't fall back asleep. Abilify 2 mg, tolerating and poss increase in energy about 10% Hydroxyzine as needed, anxiety and panic PAST PSYCHOTROPIC MEDICATIONS: bupropion was effective and then was not, Sertraline Escitalopram Mirtazapine 15 mg, started in April 2022, initially robustly effective. Started while in [facility]. TODAY PATIENT REPORTS THE FOLLOWING PSYCHIATRIC ROS: Per [facility], Kathy Edge, during today's team-based visit: MH update: Pt reports that her anxiety and mood are not improved. Difficulties with self care and managing her household. Her grandchildren worry about her which bothers her. She has returned back to a hobby she used to enjoy. States that work is her primary stress. 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 Her employer tends to micro managed. She's not eligible to collect her full social security. She has no money in her 401K becauseshe needed to use it for bills etc. Her son and one of his children live with her. She has told himhe will have to start helping more financially. Stresses: work Appetite: unremarkable Sleep: trouble staying asleep Therapy: [facility] offered to make referral but she doesn't have the finances to pay for more tx GEORGETTE: No Preg: NA Interventions: Most important: medication update, pts employer is pressuring her to return to work but she doesn'tfeel ready, needs an extension for her CATHERINE EXERCISE: Minimal exercise: related to mental health symptoms SIDE EFFECTS: tolerating medications without reported side effects COMPLIANCE: states Adherent to medication regimen REPORTS THE FOLLOWING NEW MEDICAL ISSUES: none PROBLEM: DEPRESSION: no significant improvement 09/12/2023 10:54 AM Last PHQ-9 1. Little interest or pleasure in doing things 1 2. Feeling down, depressed, or hopeless 1 3. Trouble falling or staying asleep, or sleeping too much 1 4. Feeling tired or having little energy 1 5. Poor appetite or overeating 1 6. Feeling bad about yourself 1 7. Trouble concentrating 0 8. Moving slowly or restless 0 Q9: Thoughts of better off /self-harm past 2 weeks 0 PHQ-9 Total Score 6 08/09/2023 6:27 AM 08/22/2023 8:46 AM 09/12/2023 10:54 AM PHQ-9 SCORE PHQ-9 Total Score MyChart 19 (Moderately severe depression) 7 (Mild depression) 6 (Mild depression) PHQ-9 Total Score 19 19 19 7 6 PHQ9 score is 7 indicating mild depression. Suicidal ideation: thoughts of being better off PROBLEM: ANXIETY: No change. Endorses psychosocial stressors GAD7 score is Not completed today 04/30/2023 4:23 PM 08/07/2023 1:05 PM 08/22/2023 8:47 AM LANDON-7 SCORE Total Score 14 (moderate anxiety) 16 (severe anxiety) 4 (minimal anxiety) Total Score 14 16 4 PROBLEM: SLEEP/INSOMNIA: No change PERTINENT PAST MEDICAL [...] oz) Ht Readings from Last 1 Encounters: 08/22/23 1.702 m (5' 7) Estimated body mass index is 46.89 kg/m?? as calculated from the following: Height as of 08/22/23: 1.702 m (5' 7). Weight as of [...] intake, and treatment affect the concentration of 25-gnjhgdb-Aoyozyb D. Values may decrease during winter months [...] ASSESSMENT AND PLAN Problem List as of 09/13/2023 Reviewed: 08/15/2023 [...] provide to employer, follow-up in 4 weeks RE: Alana Chiu : 1960 To whom it may concern; I am writing this letter in support of Alana Chiu meeting criteria for ongoing disability. She carries primary diagnosis of severe recurrent depression. Their depression and cognitive changes have consistently caused both occupational and social impairment, with deficiencies in most areas, including work, family relations, judgment, thinking, and mood. This is, in part, due to symptoms of near-continuous depression, neglect of personal appearance and hygiene; difficulty in adapting to stressful circumstances (including work or a work like settings); inability to establish and maintain effective relationships. These are affecting their ability to function despite multiple medications trials. She is actively participating in her treatment planning. I support extending the disability for one month and reassess in later September. Enid Tinsley, YASMIN, [facility]- Mental Health and Addiction Services, Collaborative Care Psychiatry Services 1. Severe episode of recurrent major depressive disorder, without psychotic features (H) - Primary 08/15/2023 Relevant Medications ARIPiprazole (ABILIFY) 5 MG tablet CONSULTS/REFERRALS: Continue therapy Coordinate care with therapist [...] line with medication questions or concerns at [phone]. Sonru.comhart may be used to communicate with your provider, but this is not intended to be used for emergencies. Medlineplus.gov is information for patients. It is run by the National Library of Medicine and it contains information about all disorders, diseases and all medications. COMMUNITY RESOURCES: CRISIS NUMBERS: Provided in AVS 08/09/2023 National Suicide Prevention Lifeline: 2-240-268-TALK (544-460-5145) [employer]/resources for a list of additional resources (SOS) [facility] - [phone] Urgent Care Adult Mental Ugaetn-[phone] mobile unit/ 13/11 crisis line [facility] -[phone] COPE 13/11 [place] Mobile Team -[phone] (adults)/ [phone] (child) Poison Control Center - OR 911 OR go to nearest ER Crisis Text Line for any crisis 13/11 send this- To: 012041 [facility] ([facility]) [facility] ER [phone] National Suicide Prevention Lifeline: 263.101.8788 (TTY: 959.179.9752). Call anytime for help. (www.suicidepreventionlifeline.org) National May on Mental Illness (www.mckenna.org): 948.946.3442 or 043-377-6347. Mental Health Association (www.mentalhealth.org): 591.302.4852 or 866-263-8110. [place] Crisis Text Line: Text [place] to 331337 Suicide LifeLine Chat: suicideChipX.org/chat ADMINISTRATIVE BILLING: Level of Medical Decision Making: [...] consultation and stabilization. Signed: Enid Ho, MSN, FUEL BUYER, FMHNP-[facility] Collaborative Care Psychiatry Service (CCPS) Chart documentation done in part with App47 Voice Recognition software. Although reviewed after completion, some word and grammatical errors may remain. documented in this encounter Nursing Notes * JULIA ABDULLAHI - 09/13/2023 4:00 PM CDT Is the patient currently in the state of [place]? YES Visit mode:VIDEO If the visit is dropped, the patient can be reconnected by: VIDEO VISIT: Text to cell phone: Telephone Information: Will anyone else be joining the visit? No (If patient encounters technical issues they should call [phone]) How would you like to obtain your AVS? MyChart Are changes needed to the allergy or medication list? No Are refills needed on medications prescribed by this physician? NO Rooming Documentation: Assigned questionnaire(s) completed . Reason for visit: RECHECK EDEL Wu documented in this encounter Miscellaneous Notes * Assessment & Plan Note - Enid Ho DNP - 09/13/2023 4:10 PM CDT Associated Problem(s): Behavioral Images from the original note were not included. Tolerated the Abilify with partial improvement. Will increase Abilify to 5 mg. Continue remaining medications at current dosages. Support ongoing disability and the following letter is made availablefor patient to provide to employer, follow-up in 4 weeks RE: Alana Chiu : 1960 To whom it may concern; I am writing this letter in support of Alana Chiu meeting criteria for ongoing disability. She carries primary diagnosis of severe recurrent depression. Their depression and cognitive changes have consistently caused both occupational and social impairment, with deficiencies in most areas, including work, family relations, judgment, thinking, and mood. This is, in part, due to symptoms of near-continuous depression, neglect of personal appearance and hygiene; difficulty in adapting to stressful circumstances (including work or a work like settings); inability to establish and maintain effective relationships. These are affecting their ability to function despite multiple medications trials. She is actively participating in her treatment planning. I support extending the disability for one month and reassess in later September. Enid Tinsley DNP, [facility]- Mental Health and Addiction Services, Collaborative Care Psychiatry Services documented in this encounter Plan of Treatment Upcoming Encounters Date Type Department Care Team (Late st Contact Info) Description 11/29/2023 10:30 AM CDT Virtual Visit [facility] [address] [place] [address] Kathy Edge LICSW [facility] [place] [address], [address] [place] [address] 11/29/2023 11:00 AM CDT Virtual Visit [facility] [address] [place] [address] Enid Ho, [facility] [address] [place] [address] 12/11/2023 2:45 PM CDT Office Visit [facility] [address] [facility] [address] [place] [address] Kendrick Lopez MD [address] [place] [address] [phone] documented as of this encounter Goals Goal Patient Goal Type Associated Problems Recent Progress Patient-Stated? Author Create an action plan to increase financial stability Care Plan Patient expresses financial resource strain 10%( 3:26 PM CDT) Vinita Guerrero, ORACLE PROGRAMMER Note: Barriers: Have been supporting my son and his girlfriend who live with me Strengths: Engaged with PCP, mental health support and care coordination Patient expressed understanding of goal: Yes Action steps to achieve this goal: 1. I will make plan to retire as soon as possible. 2. I will contact Social Security Administration to explore my fdc options and to see if SSD is an option. . 3. I will consult with [facility] Line about health insurance options. 4. I will make plan with son and his girlfriend and my expectation for their paying monthly rent and expenses. 5. I will access [employer] program for food. documented as of this encounter Visit Diagnoses Diagnosis Severe episode of recurrent major depressive disorder, without psychotic features (H)- Primary documented in this encounter Additional Health Concerns Active Problems Noted Date Diagnosed Date Patient expresses financial resource strain 07/23 Assessment Noted Time PHQ-9 Depression Total Score: 6 09/12/19 10:54 AM CDT documented as of this encounter Care Teams Hvac Operations Technician Relationship Specialty Start Date End Date Ludy Johnson PA-C [address] [place] [address] PCP - General Physician Trim Die Maker 10/22/15 Ludy Johnson PA-C [address] [place] [address] Assigned PCP 06/09/18 Sanjana Blair, MIREYA Personal Advocate & Liaison (PAL) Nurse 04/25/23 Vinita Begum, [facility] Lead Machine Plate Stacker Primary Care - CC 08/06/23 Kathy Edge [facility] [address], [address] [place], [place] [phone] Assigned Behavioral Health Provider 08/14/23 Danae Carrero, [facility] Community Health Worker Primary Care - CC 08/16/23 Enid Ho DNP [address] [place] [address] Assigned Neuroscience Provider 09/13/23 documented as of this encounter
--- OUTSIDE RECORDS SUMMARY | 2023-10-28 00:49 | XMS_ITS | Encounter Summary ---
Author Organization [facility] Address [address] [place] [address]. [place] [address] Care Team Providers Care Container Washer Machine Name Role Phone Ludy Johnson PA-C Primary Care Provider [phone] Ludy Johnson PA-C Unavailable Sanjana Blair RN Unavailable Vinita Begum RETAIL CLIENT SOLUTIONS CONSULTANT Unavailable [phone] Kathy Edge ENGRAVINGS POLISHER Unavailable Danae Carrero CHW Unavailable [phone] Enid Ho DNP Unavailable [phone] Kendrick Lopez MD Unavailable Reason for Visit * Reason Onset Date Comments Forms 10/26/2023 FMLA Encounter Details Date Type Department Care Team (Late st Contact Info) Description 10/26/2023 Telephone [facility] Mental Health & Addiction [facility] [address] [place] [address] Enid Ho, YASMIN [address] [place], [place] [phone] Forms (FMLA) Social History Tobacco Use Types Packs/Day Years [...] Telephone Encounter - Aide Ruvalcaba RN - 10/26/2023 2:38 PM CDT FMLA paperwork received via Right Fax and given to Enid Ho DNP for completion. Aide Ruvalcaba RN on 10/26/2023 at 2:38 PM documented in this encounter Plan of Treatment Upcoming Encounters Date Type Department Care Team (Late st Contact Info) Description 11/29/2023 10:30 AM CDT Virtual Visit [facility] [address] [place] [address] Kathy Edge LICSW [facility] [address], [address] [place] [address] 11/29/2023 11:00 AM CDT Virtual Visit [facility] [address] [place] [phone] Enid Ho, YASMIN [address] [place] [address] 12/11/2023 2:45 PM CDT Office Visit [facility] [address] [facility] [address] [place] [address] Kendrick Lopez MD [address] [place] [address] documented as of this encounter Goals Goal Patient Goal Type Associated Problems Recent Progress Patient-Stated? Author Create an action plan to increase financial stability Care Plan Patient expresses financial resource strain 10%( 3:26 PM CDT) Vinita Guerrero, RETAIL CLIENT SOLUTIONS CONSULTANT Note: Barriers: Have been supporting my son and his girlfriend who live with me Strengths: Engaged with PCP, mental health support and care coordination Patient expressed understanding of goal: Yes Action steps to achieve this goal: 1. I will make plan to retire as soon as possible. 2. I will contact Social Security Administration to explore my alf options and to see if SSD is [...] documented as of this encounter Care Teams Container Washer Machine Relationship Specialty Start Date End Date Ludy Johnson PA-C [address] [place] [address] PCP - General Physician Interactive Media Specialist 10/22/15 Ludy Johnson PA-C [address] [place] [address] Assigned PCP 06/09/18 Sanjana Blair, MIREYA Personal Advocate & Liaison (PAL) Nurse 04/25/23 Vinita Begum, [facility] Lead Chief Administrative Officer Primary Care - CC 08/06/23 Kathy Edge [facility] [address], [address] [place], [place] [address] Assigned Behavioral Health Provider 08/14/23 Danae Carrero, [facility] Community Health Worker Primary Care - CC 08/16/23 Enid Ho DNP [address] [place] [address] Assigned Neuroscience Provider 09/13/23 Kendrick Lopez MD [address] [place] [address] Cardiovascular Disease 09/28/23 documented as of this encounter
--- OUTSIDE RECORDS SUMMARY | 2023-10-28 00:49 | XMS_ITS | Encounter Summary ---
Author Organization [facility] Address [address] [place] [id number] Care Team Providers Care Card Setter Name Role Phone Ludy Johnson PA-C Primary Care Provider [phone] Ludy Johnson PA-C Unavailable Sanjana Blair RN Unavailable Vinita Begum MANAGER USER EXPERIENCE Unavailable Kathy Edge NEWSPAPER CARRIER Unavailable Danae Carrero CHW Unavailable Enid Ho DNP Unavailable Kendrick Lopez MD Unavailable Encounter Details Date Type Department Care Team (Late st Contact Info) Description 10/18/2023 10:30 AM CDT Virtual [facility] [address] [place] [phone] Kathy Edge NEWSPAPER CARRIER [address] [id number] Depression, major, recurrent, moderate (H) (Primary Dx) Social History Tobacco Use [...] in an abandoned building, in an overnight group home, or couch-surfing.) Yes 04/30/2023 Are you worried [...] Progress Notes * Kathy Edge LICSW - 10/18/2023 10:30 AM CDT [facility] October 18, 2023 Behavioral Health Clinician Progress Note Patient Name: Alana Chiu Service Type: Individual [facility] Email (patient reached) Session Start Time: 1030am Session End Time: 1047 am Session Length: 16 - 37 Attendees: Patient [...] Chart Mode of Communication: Video Conference via Peer60 Distant Location (Provider): Off-site As the provider I attest to compliance with applicable laws and regulations related to telemedicine. Visit Activities (Refresh list every visit): [facility] Only Diagnostic Assessment Date: 08/09/2023 Treatment Plan Review Date: 12/14/2023 See Flowsheets for today's PHQ-9 and LANDON-7 results Previous PHQ-9: 08/22/2023 8:46 AM 09/12/2023 10:54 AM 10/18/2023 6:28 AM PHQ-9 SCORE PHQ-9 Total Score MyChart 7 (Mild depression) 6 (Mild depression) 9 (Mild depression) PHQ-9 Total Score 7 6 9 Previous LANDON-7: 08/07/2023 1:05 PM 08/22/2023 8:47 AM 10/18/2023 6:30 AM LANDON-7 SCORE Total Score 16 (severe anxiety) 4 (minimal anxiety) 17 (severe anxiety) Total Score 16 4 17 17 CAROLINA LEVEL: 09/23/2010 2:00 PM CAROLINA Score (Last Two) CAROLINA Raw Score 39 Activation Score 56.4 CAROLINA Level 3 DATA Extended Session (60+ minutes): No Interactive Complexity: No Crisis: No [facility] Patient: No Treatment Objective(s) Addressed in This [...] 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 She is hoping that if she transitions to [employer] the [employer] will offer her early [place] [facility] with severance. There was some confusion about getting CATHERINE paperwork filled out but it has been. Her son and 19 yo granddaughter live with her. He's onlyable to contribute a little because his legal record makes working a traditional job difficult. He usually works for [employer] doing car repair for used cars and gets half the sales but they've only sold one car. Her granddaughter works 2 jobs She pays pt $200/month, pays her own bills (cell phone, car insurance). She also helps with the family bills as needed. Stresses: pt is on CATHERINE from work and doesn't feel she can return, financial stress Appetite: unremarkable Sleep: unremarkable Therapy: No, pt has financial barriers to being able to do therapy. [facility] sent resources for sliding fee scale. [facility] suggested pt check to see if her company has an EAP. Pt agreed this would be helpful. GEORGETTE: No Preg: NA Interventions: solution focused to find affordable mental health services Most important: increased anxiety, low energy, getting easily overwhelmed, extended FMLA, transition to [employer]? Progress on Treatment Objective(s) / Homework: No improvement - ACTION (Actively working towards change); Intervened by reinforcing change plan / affirming steps taken Motivational Interviewing AR Intervention: Co-Developed Goal: improved energy, Expressed Empathy/Understanding, [...] time, however patient was encouraged to call [place] [id number] should there be a change in any of these risk factors. Appearance: Appropriate Eye Contact: Good Psychomotor Behavior: Normal Attitude: Cooperative Orientation: All Speech Rate / Production: Normal Volume: Normal Mood: Anxious Depressed Affect: Tearful Thought Content: Clear Thought Form: Coherent Logical Insight: Good Diagnoses: 1. Depression, major, recurrent, moderate (H) Collateral Reports Completed: Collaborated with [facility] team Plan: (Homework, other): Patient was given information about behavioral services and encouraged to schedule a follow up appointment with the clinic [facility] in 1 month. She was also given information about mental health symptoms and treatment options . CD Recommendations: No indications of CD issues. Kathy Edge, NEWSPAPER CARRIER Integrated Primary Care Behavioral Health Treatment Plan [...] 15 15 Referral / Collaboration: Collaborated with [facility] team . Anticipated number of session for [...] . Status: New - Date: 09/13/2023 Intervention(s) [facility] provided psycho-education for symptom management including the following: https://www.[employer].com/watch?v=Ls5myIlSjX9 https://www.[employer].com/watch?v=7-6Z9LvWocC https://[facility]/for-community/mindfulness-programs/cmsuzaahvrc-molnn-nvrzzf- reduction Slow breathing. When you're anxious, your [...] can make you more anxious in the skilled nursing. Try approaching something that makes you anxious [...] the same size, 2 smells, 1 sound [facility] provided psycho-education on Acceptance and Commitment skills including: -values clarification -behavioral activation planning including overcoming barriers -mindfulness -cognitive diffusion skill -facilitate self acceptance [facility] provided psycho-education on sleep skills including: -sleep hygiene -tracking sleep schedule -creating sleep routine [facility] provided psycho-education on DBT skills -mindfulness -mood regulation techniques -5 things exercise -somatic regulation skills (taste of something sweet or sour, notice smells, touch/feel of things in the environment, physical activity such as dancing, walking) [facility] provided psycho-education of CBT skills including the following: -challenging destructive thinking -re-framing -behavioral activation -journaling -mood/behavioral tracking -exposure response -mood regulation (deep breathing, somatic skills) Patient has reviewed and agreed to the above plan. ZULLY Majano October 18, 2023 documented in this encounter Plan of Treatment Upcoming Encounters Date Type Department Care Team (Late st Contact Info) Description 11/29/2023 10:30 AM CDT Virtual [facility] [address] [phone] [address] [facility] [address] [place] [phone] 11/29/2023 11:00 AM CDT Virtual Visit [facility] [address] [phone] Enid Ho, [facility] [address] [place] [address] 12/11/2023 2:45 PM CDT [facility] Visit [facility] [address] [facility] [address] [place] [phone] Kendrick Lopez MD [address] [place] [phone] documented as of this encounter Goals Goal Patient Goal Type Associated Problems Recent Progress Patient-Stated? Author Create an action plan to increase financial stability Care Plan Patient expresses financial resource strain 10%(05/15/202 4 3:26 PM CDT) No Vinita Begum [...] . 3. I will consult with [facility] about health insurance options. 4. I will make plan with son and his girlfriend and my expectation for their paying monthly rent and expenses. 5. I will access [employer] program for food. documented as of this encounter Visit Diagnoses Diagnosis Depression, major, recurrent, moderate (H)- Primary Major depressive disorder, recurrent episode, moderate documented in this encounter Additional Health Concerns Active Problems Noted Date Diagnosed Date Patient expresses financial resource strain 07/23 Assessment Noted Time PHQ-9 Depression Total Score: 9 10/18/19 24 6:28 AM CDT documented as of this encounter Care Teams Card Setter Relationship Specialty Start Date End Date Ludy Johnson PA-C [address] [place] [address] PCP - General Physician Cook Mess 10/22/15 Ludy Johnson PA-C [address] [place] [address] Assigned PCP 06/09/18 Sanjana Blair, MIREYA Personal Advocate & Liaison (PAL) Nurse 04/25/23 Vinita Begum LSW Lead Traveling Crane Operator Primary Care - [facility] 08/06/23 Kathy Edge LICSW [address], [address] [place] [address] Assigned Behavioral Health Provider 08/14/23 Danae Carrero, [facility] Community Health Worker Primary Care - [facility] 08/16/23 Enid Ho DNP [address] [place] [phone] Assigned Neuroscience Provider 09/13/23 Kendrick Lopez MD [address] [place] [phone] Cardiovascular Disease 09/28/23 documented as of this encounter
--- OUTSIDE RECORDS SUMMARY | 2023-10-28 00:49 | XMS_ITS | Referral Summary ---
Author Organization [facility] Address [address] [place] [address] Care Team Providers Care Surgical Oncologist Name Role Phone Ludy Hurst PA-C Primary Care Provider [phone] Ludy Hurst PA-C Unavailable [phone] Sanjana Blair RN Unavailable Vinita Begum RADIO TIME SALESPERSON Unavailable [phone] Kathy Edge ROAST MASTER Unavailable Danae Carrero CHW Unavailable [phone] Enid Ho DNP Unavailable Kendrick Lopez MD Unavailable Encounters Date Type Department Care Team Description 10/26/2023 Telephone [facility] Mental Health & Addiction [facility] [address] [address] Enid Ho DNP Forms ([facility]) 10/18/2023 MyC Medical Advice [facility] Mental [facility] & Addiction [facility] [address] [address] Kathy Edge ROAST MASTER 10/18/2023 11:00 AM CDT Virtual Visit [facility] Mental [facility] & Addiction [facility] [address] [address] Enid Ho DNP Severe episode of recurrent major depressive disorder, without psychotic features (H) 10/18/2023 10:30 AM CDT Virtual Visit [facility] [address] [address] Kathy Edge LICSW Depression, major, recurrent, moderate (H) (Primary Dx) 10/17/2023 Telephone [facility] [address] [phone] Nino Wang FMLA ext. (LM for patient to return call, per Enid Ho, does the pt need an extension In FMLA ) 10/16/[address] [facility] [address] [place] [phone] Ludy Hurst PA-C Forms ([facility] Leave Request Number: [id number]) 10/09/2023 MyC Medical Advice [facility] [address] [phone] Enid Ho DNP Patient Request for Note/Letter (Letter to... 09/28/2023 Telephone [facility] Heart [place] [address] [facility] [address] [place] [phone] Kendrick Lopez MD Refill Request (isosorbide mononitrate (IMDUR) 30 MG 24 hr tablet [[id number]]) 09/20/2023 Refill [facility] [address] [phone] Enid Ho DNP Medication Refill; Refill Request (Aripiprazole 2mg) 09/13/2023 4:00 PM CDT Virtual Visit [facility] [address] [phone] Enid Ho DNP Severe episode of recurrent major depressive disorder, without psychotic features (H) (Primary Dx) 09/13/2023 3:30 PM CDT Virtual Visit [facility] & Addiction [facility] [address] [place] [address] [place] [phone] Kathy Edge ROAST MASTER Depression, unspecified depression type (Primary Dx) 09/04/2023 Documentation Only [facility] Addiction [facility] [address] [place] [phone] Enid Ho DNP 09/03/[address] [facility] [address] [place] [phone] Ludy Hurst PA-C Patient Request (Leave of absence forms [place]... 08/28/[address] [address] Ludy Hurst PA-C Follow Up (Forms ) 08/28/2023 Telephone [facility] [address] [place] [phone] Enid Ho DNP Call Back (See documentation. ) 08/23/[address] [facility] [address] [place] [phone] Ludy Hurst PA-C [facility] 08/22/2023 Travel 08/22/2023 9:00 AM CDT Office Visit [facility] [address] [place] [phone] Ludy Hurst PA-C Severe episode of recurrent major depressive disorder, without psychotic features (H) (Primary Dx); Achilles bursitis of left lower extremity; Pre-diabetes; Dermatitis; Visit for screening mammogram 08/16/[address] [address] Ludy Hurst PA-C Forms (Attending Physician's Statement) 08/09/2023 8:00 AM CDT Virtual Visit [facility] & Addiction [facility] [address] [place] [address] Kathy Edge LICSW Depression, unspecified depression type (Primary Dx) 08/09/2023 8:30 AM CDT Virtual Visit [facility] & Addiction [facility] [address] [place] [phone] Enid Ho, DNP Severe episode of recurrent major depressive disorder, without psychotic features (H) (Primary Dx); Insomnia due to psychological stress 08/09/2023 11:00 AM CDT Virtual Visit [address] [address] Ludy Hurst PA-C Moderate episode of recurrent major depressive disorder (H) (Primary Dx); Anxiety; Achilles bursitis of left lower extremity 08/08/2023 MyC Medical Advice [facility] & Addiction [facility] [address] [place] [address] Kathy Edge LICSW 08/07/[address] [phone] Ludy Hurst PA-C Forms ([facility] Source Leave Request Number: [id number]) 08/07/2023 MyC Medical Advice [facility] & Addiction [address] [address] Torie Monroy, ROAST MASTER 08/07/2023 MyC Medical Advice [facility] Addiction [address] [address] Torie Monroy, ROAST MASTER 08/07/2023 1:00 PM CDT Virtual Visit [facility] Addiction [address] [address] Torie Monroy, ROAST MASTER Depression, unspecified depression type (Primary Dx) 08/03/2023 10:00 AM CDT Virtual Visit [address] [address] Ludy Hurst PA-C Severe episode of recurrent major depressive disorder, without psychotic features (H) (Primary Dx); Hypertension goal BP (blood pressure) < 140/90; Anxiety state; Insomnia, unspecified type; Hyperlipidemia LDL goal <100; Financial difficulty 07/31/[address] [address] Ludy Hurst PA-C Patient Request (MIREYA ZAVALA ) 07/31/2023 MyC Medical Advice [address] [address] Rosy Shay MA Appointment (R/S 08/22/2023 with CJ arriving... from Last 3 Months Allergies Active Allergy Reactions Criticality Noted Date [...] by mouth daily 90 tablet 1 08/03/2023 4 Discontinue d(Not Effective) ARIPiprazole (ABILIFY) 2 MG [...] Overview: Added automatically from request for surgery [id number] Nuclear cataract, nonsenile 01/09/2022 Overview: Added automatically from request for surgery [id number] Pain of right thumb 06/22/2021 Pain of [...] L GOAL LESS THAN 130 06/02/2009 07/06/2011 Immunizations Name Administration Dates Next Due COVID-19 MONOVALENT 12+ (Pfizer) 08/13/2020 Influenza Vaccine 18-64 (Flublok) 01/18/2018 TDAP (Adacel,Boostrix) 12/21/2022 TDAP Vaccine (Adacel) 07/04/2012 Social History Tobacco Use Types Packs/Day Years [...] Description 11/29/2023 10:30 AM CDT Virtual Visit [facility] Mental Health & Addiction [facility] [address] [place] [address] [address] [place] [address] Kathy Edge, ROAST MASTER [facility] [address], [address] [place] [address] 11/29/2023 11:00 AM CDT Virtual Visit [facility] Mental Health & Addiction [facility] [address] [place] [address] Enid Ho, YASMIN [address] [place] [address] 12/11/2023 2:45 PM CDT Office Visit [facility] Heart [facility] [address] [facility] [address] [place] [phone] Kendrick Lopez MD [address] [place] [address] [phone] Goals Goal Patient Goal Type Associated Problems Recent Progress Patient-Stated? Author Create an action plan to increase financial stability Care Plan Patient expresses financial resource strain 10%( 4 3:26 PM CDT) No Vinita Begum, RADIO TIME SALESPERSON Note: Barriers: Have been supporting my son and his girlfriend who live with me Strengths: Engaged with PCP, mental health support and care coordination Patient expressed understanding of goal: Yes Action steps to achieve this goal: 1. I will make plan to retire as soon as possible. 2. I will contact Social Security Administration to explore my usp options and to see if SSD is an option. . 3. I will consult with [facility] about health insurance options. 4. I will make plan with son and his girlfriend and my expectation for their paying monthly rent and expenses. 5. I will access [employer] program for food. Medical Devices Implanted Type Area Hammer Fitter Device Identifier Shelf Expiration Date Model / Serial / Lot Eye Imp Iol Remy Acrysof Uv Sa60wf 19.0d - [id number] Implanted:Qty: 1 on 01/17/2022 by Timoteo Fitzpatrick MD at [facility] Lens/Eye Implant Right: Eye [employer] [id number] 09/26/2026 SA60WF.19 0 / [id number] / Eye Imp Iol Remy Acrysof Uv Sa60wf +20.0d - [id number] Implanted:Qty: 1 on 01/31/2022 by Timoteo Fitzpatrick MD at [facility] Lens/Eye Implant Left: Eye [employer] 09/25/2026 SA60WF.20 0 / [id number] / Procedures Procedure Name Priority Date/Time Associated Diagnosis Comments HEMOGLOBIN A1C Routine 08/22/2023 9:49 AM CDT Pre-diabetes BASIC METABOLIC PANEL Routine 06/04/2023 4:09 PM BOOKKEEPING CLERK Diarrhea of presumed infectious origin LIPID REFLEX TO DIRECT LDL PANEL Routine 05/07/2023 4:26 PM BOOKKEEPING CLERK Hyperlipidemia LDL goal <100 HEPATITIS C SCREEN REFLEX TO HCV RNA QUANT AND GENOTYPE Routine 05/28/2018 9:16 AM BOOKKEEPING CLERK Need for hepatitis C screening test PAP [...] LAB - BLOOD ORDERA BLES CR LABORATORY [facility] [address] [facility] Lab (no room number, 1st floor of clinic) [place] [address], [facility] [phone] * (ABNORMAL) Basic metabolic panel (Ca, Cl, CO2, Creat, Gluc, K, Na, BUN) (06/04/2023 4:09 PM BOOKKEEPING CLERK) [facility] Sodium 138 135 - 145 mmol/L 06/05/2023 6:03 PM BOOKKEEPING CLERK [facility] Comment:Reference intervals for this test were updated on 01/16/2023 to more accurately reflect our healthy population. There may be differences in the flagging of prior results with similar values performed with this method. Interpretation of those prior results can be made in the context of the updated reference intervals. Potassium 3.8 3.4 - 5.3 mmol/L 06/05/2023 6:03 PM BOOKKEEPING CLERK [facility] Chloride 100 98 - 107 mmol/L 06/05/2023 6:03 PM BOOKKEEPING CLERK [facility] Carbon Dioxide (CO2) 25 22 - 29 mmol/L 06/05/2023 6:03 PM BOOKKEEPING CLERK [facility] Anion Gap 13 7 - 15 mmol/L 06/05/2023 6:03 PM BOOKKEEPING CLERK [facility] Urea Nitrogen 24.8(H) 8.0 - 23.0 mg/dL 06/05/2023 6:03 PM BOOKKEEPING CLERK [facility] Creatinine 0.95 0.51 - 0.95 mg/dL 06/05/2023 6:03 PM BOOKKEEPING CLERK [facility] GFR Estimate 67 >60 mL/min/1. 73m2 06/05/2023 6:03 PM BOOKKEEPING CLERK [facility] Calcium 9.7 8.8 - 10.2 mg/dL 06/05/2023 6:03 PM BOOKKEEPING CLERK [facility] Glucose 105(H) 70 - 99 mg/dL 06/05/2023 6:03 PM BOOKKEEPING CLERK [facility] Blood BLOOD SPECIMEN / Unknown Venipuncture / Unknown 06/04/2023 4:09 PM BOOKKEEPING CLERK 06/04/2023 4:09 PM BOOKKEEPING CLERK Suhail Flores MD LAB - BLOOD ORDERABL ES [facility] [place] [facility] [address] [facility] [address], [facility] [phone] * (ABNORMAL) Lipid panel reflex to direct LDL Fasting (05/07/2023 4:26 PM BOOKKEEPING CLERK) Cholesterol 247(H) <200 mg/dL 05/08/2023 6:15 PM BOOKKEEPING CLERK [facility] Triglycerides 179(H) <150 mg/dL 05/08/2023 6:15 PM BOOKKEEPING CLERK [facility] Direct Measure HDL 64 >=50 mg/dL 05/08/2023 6:15 PM BOOKKEEPING CLERK [facility] LDL Cholesterol Calculated 147(H) <=100 mg/dL 05/08/2023 6:15 PM BOOKKEEPING CLERK [facility] Non HDL Cholesterol 183(H) <130 mg/dL 05/08/2023 6:15 PM BOOKKEEPING CLERK [facility] Patient Fasting > 8hrs? No 05/08/2023 6:15 PM BOOKKEEPING CLERK [facility] Blood BLOOD SPECIMEN / Unknown Venipuncture / Unknown 05/07/2023 4:26 PM BOOKKEEPING CLERK 05/07/2023 4:26 PM BOOKKEEPING CLERK Narrative [facility] - 05/08/2023 6:15 PM BOOKKEEPING CLERK Cholesterol Desirable: ??<200 mg/dL Triglycerides Normal: ??Less [...] Hurst PA-C LAB - BLOOD ORDERA BLES [facility] [place] [facility] [address] [facility], [address] [phone] [phone] * Hepatitis C Screen Reflex to HCV RNA Quant and Genotype (05/28/2018 9:16 AM BOOKKEEPING CLERK) Hepatitis C Antibody Nonreactive NR^Nonre active 05/28/2018 6:26 PM BOOKKEEPING CLERK [facility] Comment: Assay performance characteristics have not been established for newborns, infants, and children Blood specimen (specimen) 05/28/2018 9:16 AM BOOKKEEPING CLERK 05/28/2018 9:17 AM BOOKKEEPING CLERK Ludy Hurst PA-C LAB - BLOOD ORDERA BLES Performing Organization Address [facility] Co de Phone Number [facility] [address] [place] [address] * PAP IMAGED THIN LAYER SCREEN (07/22/2015 12:00 AM CDT) PAP KENNEDY Petersen Report Patient Name: YUNI NATION MR#: [id number] Specimen #: [id number] Collected: 07/22/2015 Received: 07/23/2015 Reported: 07/26/2015 10:14 [...] by: Maia Rich Processed and screened at [facility] CLINICAL HISTORY: LMP: 05/30/07 Post Menopausal, Previous normal pap Date of Last Pap: 09/23/10, Papanicolaou Test Limitations: ??Cervical cytology is a screening test with limited sensitivity; regular screening is critical for cancer prevention; Pap tests are primarily effective for the diagnosis/preventi on of squamous cell carcinoma, not adenocarcinomas or other cancers. TESTING LAB LOCATION: [address] ??[address] COLLECTION SITE: Client: ??[facility] Location: CRFP (R) COPATH Cytologic material (specimen) 07/22/2015 07/23/2015 10:38 AM CDT Ludy Hurst PA-C LAB - OPTIME CLINI [place] SPECIMEN Performing Organization Address City/[facility] Co de Phone Number [facility] * COLONOSCOPY (12/05/2010) Kristen Arias PA-C PROCEDURES * (ABNORMAL) Fecal colorectal cancer screen FIT (11/01/2010 7:00 AM CDT) Occult Blood Scn FIT Positive(A ) NEG [facility] Stool specimen (specimen) 11/01/2010 7:00 AM CDT 11/01/2010 1:11 PM CDT Kristen Arias PA-C LAB - STOOLS ORDERABLES Performing Organization Address [facility]/ZIP Co de Phone Number [facility] * Mammo Screening digital (bilat) (10/20/2010 [...] Advance Directives For more information, please contact: [phone] * Full Code (Latest Code Status on [...] 1:14 PM 01/06/2004 1:14 PM Care Teams Surgical Oncologist Relationship Specialty Start Date End Date Ludy Hurst PA-C [address] [place] [address] PCP - General Physician [place] 10/22/15 Ludy Hurst PA-C [address] [place] [address] Assigned PCP 06/09/18 Sanjana Blair, MIREYA Personal Advocate & Liaison (PAL) Nurse 04/25/23 Vinita Begum, RADIO TIME SALESPERSON Lead Residential Youth Counselor Primary Care - CC 08/06/23 Kathy Edge ROAST MASTER [address], [address] [place], [place] [address] Assigned Behavioral Health Provider 08/14/23 Danae Carrero, [facility] Community Health Worker Primary Care - CC 08/16/23 Enid Ho DNP [address] [place] [address] [phone] Assigned Neuroscience Provider 09/13/23 Kendrick Lopez MD [address] [place] [phone] Cardiovascular Disease 09/28/23
--- OUTSIDE RECORDS SUMMARY | 2023-10-28 00:49 | XMS_ITS | Encounter Summary ---
Author Organization [facility] Address [address] [place] [address] Care Team Providers Care Director Clinical Research Name Role Phone Ludy Johnson PA-C Primary Care Provider [phone] Ludy Johnson PA-C Unavailable Sanjana Blair RN Unavailable Vinita Begum VEGETABLE FARMWORKER Unavailable [phone] Kathy Edge SAP BASIS ARCHITECT Unavailable Danae Carrero CHW Unavailable [phone] Enid Ho DNP Unavailable Kendrick Lopez MD Unavailable Reason for Visit * Reason Onset Date Comments Patient Request for Note/Letter 10/09/2023 Letter to extend leave until 10/21/2023 Encounter Details Date Type Department Care Team (Late st Contact Info) Description 10/09/2023 [facility] Adv[facility] Mental Health & Addiction [facility] [address] [address] [place] [address] Enid Ho, YASMIN [address] [place] [address] Patient Request for Note/Letter (Letter to... Social History Tobacco Use Types Packs/Day Years [...] Are you worried about losing your housing? Yuri nt declined 04/30/2023 Financial Resource Strain Answer [...] Telephone Encounter - Enid Ho DNP - 10/12/2023 2:22 PM CDT LI on file for [place]. Send an email with the claim number the patient provided requesting what they need to support her disability claim today at 2:20 PM Enid Ho DNP, EXAM PROCTOR, FMHNP-BC, * Telephone Encounter - Enid Ho DNP - 10/11/2023 10:36 AM CDT Call to patient at 1036. No answer. Have completed the letter requested and send her a message through [employer]. Enid Ho DNP, EXAM PROCTOR, FMHNP-BC, documented in this encounter Plan of Treatment Upcoming Encounters Date Type Department Care Team (Late st Contact Info) Description 11/29/2023 10:30 AM CDT Virtual Visit [facility] Mental Health & Addiction [address] [phone] Kathy Edge LICSW [facility] - [address] [address] 11/29/2023 11:00 AM CDT Virtual Visit [facility] Health & Addiction [address] [phone] Enid Ho DNP [address] [place], [place] [address] 12/11/2023 2:45 PM CDT Office Visit [facility] Heart [facility] [address] [facility] [address] [place] [phone] Kendrick Lopez MD [address] [place] [address] documented as of this encounter Goals Goal Patient Goal Type Associated Problems Recent Progress Patient-Stated? Author Create an action plan to increase financial stability Care Plan Patient expresses financial resource strain 10%( 4 3:26 PM CDT) Vinita Guerrero, VEGETABLE FARMWORKER Note: Barriers: Have been supporting my son and his girlfriend who live with me Strengths: Engaged with PCP, mental health support and care coordination Patient expressed understanding of goal: Yes Action steps to achieve this goal: 1. I will make plan to retire as soon as possible. 2. I will contact Social Security Administration to explore my group home options and to see if SSD is an option. . 3. I will consult with [employer] about health insurance options. 4. I will make plan with son and his girlfriend and my expectation for their paying monthly rent and expenses. 5. I will access [employer] RX program for food. documented as of this encounter Visit Diagnoses Not on filedocumented in this encounter Additional Health Concerns Active Problems Noted Date Diagnosed Date Patient expresses financial resource strain 07/23 Assessment Noted Time PHQ-9 Depression Total Score: 6 09/12/19 10:54 AM CDT documented as of this encounter Care Teams Director Clinical Research Relationship Specialty Start Date End Date Ludy Johnson PA-C [address] [place] [address] PCP - General Physician Lgsw 10/22/15 Ludy Johnson PA-C [address] [place] [address] Assigned PCP 06/09/18 Sanjana Blair, MIREYA Personal Advocate & Liaison (PAL) Nurse 04/25/23 Vinita Begum, [facility] Lead Core Worker Primary Care - CC 08/06/23 Kathy Edge SAP BASIS ARCHITECT [facility] [address] [place] [address], [address] [place], [place] [phone] Assigned Behavioral Health Provider 08/14/23 Danae Carrero, W Community Health Worker Primary Care - CC 08/16/23 Enid Ho DNP [address] [place] [address] Assigned Neuroscience Provider 09/13/23 Kendrick Lopez MD [address] [place] [address]455 Cardiovascular Disease 09/28/23 documented as of this encounter
--- OUTSIDE RECORDS SUMMARY | 2023-10-28 00:50 | XMS_ITS | Encounter Summary ---
Author Organization [facility] Address [address] [place] [address] Care Team Providers Care Distance Learning Program Coordinator Name Role Phone Ludy Johnson PA-C Primary Care Provider [phone] Ludy Johnson PA-C Unavailable Sanjana Blair RN Unavailable Xenia Calderon MD Unavailable Vinita Begum SIDE HEMMER Unavailable Kathy Edge Unavailable [phone] Danae Carrero CHW Unavailable Enid Ho DNP Unavailable Kendrick Lopez MD Unavailable [phone] Encounter Details Date Type Department Care Team (Late st Contact Info) Description 08/08/2023 MyC Medical Advice [facility] Mental Health & Addiction [address] [place] [phone] Kathy Edge LICSW [address] [place] [phone] Social History Tobacco Use Types Packs/Day Years Used Date Smoking Tobacco: Light Smoker Cigarettes 0.5 30 Smokeless Tobacco: Never Comments:down to 3 or 4 a da y Alcohol Use Standard Drinks/Week Comments Yes 0 (1 standard drink = 0.6 oz pur e alcohol) very rarely PHQ-2 Answer Date Recorded PHQ-2 Score 6 08/09/2023 Adolescent Education Answer Date Record ed Getting [...] in an abandoned building, in an overnight care home, or couch-surfing.) Yes 04/30/2023 Are you [...] 11/29/2023 10:30 AM CDT Virtual Visit [facility] Mental Health & Addiction [place] [phone] [address] [address] Kathy Edge, GYRO MECHANIC [facility] [address] [place] [address] 400 [place] [address] 11/29/2023 11:00 AM CDT Virtual Visit [facility] Mental Health & Addiction [facility] [address] [place] [phone] Enid Ho, [facility] [address] [place] [address] 12/11/2023 2:45 PM CDT Office Visit [facility] [address] [facility] [address] [place] [phone] Kendrick Lopez MD [address] [place], [place] [phone] documented as of this encounter Visit Diagnoses Not on filedocumented in this encounter Additional Health Concerns Assessment Noted Time PHQ-9 Depression Total Score: 18 024 12:29 PM CDT documented as of this encounter Care Teams Distance Learning Program Coordinator Relationship Specialty Start Date End Date Ludy Johnson PA-C [address] [place] [address] PCP - General Physician Studio Operation Engineer 10/22/15 Ludy Johnson PA-C [address] [place] [address] Assigned PCP 06/09/18 Sanjana Blair, MIREYA Personal Advocate & Liaison (PAL) Nurse 04/25/23 Xenia Calderon MD [address] [place] [address] [phone] Assigned Surgical Provider 05/25/23 08/13/23 Vinita Begum, SIDE HEMMER Lead Ct Scan Technologist Primary Care - CC 08/06/23 Kathy Edge LICSW [address], [address] [place] [address] Assigned Behavioral Health Provider 08/14/23 Danae Carrero, [facility] Community Health Worker Primary Care - CC 08/16/23 Enid Ho DNP [address] [place] [address] Assigned Neuroscience Provider 09/13/23 Kendrick Lopez MD [address] [place] [address] Cardiovascular Disease 09/28/23 documented as of this encounter
--- OUTSIDE RECORDS SUMMARY | 2023-10-28 00:50 | XMS_ITS | Encounter Summary ---
Author Organization [facility] Address [address] [place] [address]. [place] [address] Care Team Providers Care Glove Parts Inspector Name Role Phone Ludy Johnson PA-C Primary Care Provider [phone] Ludy Johnson PA-C Unavailable Sanjana Blair RN Unavailable [phone] Vinita Begum FORCE DISPATCHER Unavailable Kathy Edge DIRECTOR INTERNAL COMMUNICATIONS Unavailable Danae Carrero CHW Unavailable Enid Ho DNP Unavailable Kendrick Lopez MD Unavailable Reason for Visit * Reason Onset Date Comments Patient Request 09/03/2023 Leave of absence forms [facility] Encounter Details Date Type Department Care Team (Late st Contact Info) Description 09/03/2023 [facility] [address] [place] [address] [phone] Ludy Johnson PA-C [address] [place] [address] Patient Request (Leave of absence forms [facility]... Social History Tobacco Use Types Packs/Day Years [...] in an abandoned building, in an overnight fci, or couch-surfing.) Yes 04/30/2023 Are you worried [...] encounter Miscellaneous Notes * Telephone Encounter - Sanjana Blair RN - 09/04/2023 10:02 AM CDT See My Chart MIREYA dawson with Ludy Johnson PA-C regarding FMLA forms - forms filled out and faxed to [facility] along with office visit notes from pcp on 09/04/2023. See phone encounter 08/28/23 - in the future, forms from [facility] will need to be sent to the psychiatry team not pcp - if [facility] is requesting office visit notes from psychiatry team patient will need to reach out to [facility] to request this information as we are unable to send their medical records My chart response sent to patient and asked that she return call to RN to discuss any questions Sanjana Blair Registered Nurse [facility] documented in this encounter Plan of Treatment Upcoming Encounters Date Type Department Care Team (Late st Contact Info) Description 11/29/2023 10:30 AM CDT Virtual Visit [facility] [address] [phone] Kathy Edge LICSW [facility] [address] [place] [address] [address] [place] [address] 11/29/2023 11:00 AM CDT Virtual Visit [facility] [address] [phone] Enid Ho, YASMIN [address] [place] [address] 12/11/2023 2:45 PM CDT Office Visit [facility] [address] [facility] [address] [place] [phone] Kendrick Lopez MD [address] [place] [phone] documented as of this encounter Goals Goal Patient Goal Type Associated Problems Recent Progress Patient-Stated? Author Create an action plan to increase financial stability Care Plan Patient expresses financial resource strain 10%( 3:26 PM CDT) No Vinita Begum LSW [...] contact Social Security Administration to explore my mcc options and to see if SSD is an option. . 3. I will consult with [employer] about health insurance options. 4. I will make plan with son and his girlfriend and my expectation for their paying monthly rent and expenses. 5. I will access [employer] program for food. documented as of this encounter Visit Diagnoses Not on filedocumented in this encounter Additional Health Concerns Active Problems Noted Date Diagnosed Date Patient expresses financial resource strain 07/23 Assessment Noted Time PHQ-9 Depression Total Score: 7 08/22/19 8:46 AM CDT documented as of this encounter Care Teams Glove Parts Inspector Relationship Specialty Start Date End Date Ludy Johnson PA-C [address] [place] [address] PCP - General Physician Truck Dock Material Mover 10/22/15 Ludy Johnson PA-C [address] [place] [address] Assigned PCP 06/09/18 Sanjana Blair, RN Personal Advocate & Liaison (PAL) Nurse 04/25/23 Vinita Begum, [facility] Lead Crutching Contractor Primary Care - CC 08/06/23 Kathy Edge DIRECTOR INTERNAL COMMUNICATIONS [address], [address] [place], [place] [address] Assigned Behavioral Health Provider 08/14/23 Danae Carrero, W Community Health Worker Primary Care - CC 08/16/23 Enid Ho DNP [address] [place] [address] Assigned Neuroscience Provider 09/13/23 Kendrick Lopez MD [address] [place] [address] Cardiovascular Disease 09/28/23 documented as of this encounter
--- OUTSIDE RECORDS SUMMARY | 2023-10-28 00:50 | XMS_ITS | Encounter Summary ---
Author Organization [facility] Address [address] [place] [address]. [place] [address] Care Team Providers Care Graduate Fellow Name Role Phone Ludy Johnson PA-C Primary Care Provider [phone] Ludy Johnson PA-C Unavailable [phone] Sanjana Blair RN Unavailable Vinita Begum CURTAIN SUPERVISOR Unavailable [phone] Kathy Edge PLANT OPERATIONS WORKER Unavailable Danae Carrero CHW Unavailable Reason for Referral * Consultation (Routine: Next available opening) - Pending Review Specialty Diagnoses / Procedures Referred By Contzhang t Referred To Contact Dermatology Diagnoses Dermatitis Ludy Johnson PA-C [address] [place] [address] [facility] [address] [place] [phone] Referral ID Status Reason Start Date Expiration Date V isits Requested Visits Authorized [id number] Pending Review 08/22/2023 08/21/2024 1 1 Question Answer Service Type: General Dermatology Reason for Referral: Skin Check Type: Routine Comments Please be aware that coverage of these services is subject to the terms and limitations of your health insurance plan. Call member services at your health plan with any benefit or coverage questions. * Consultation (Routine) - Pending Review Specialty Diagnoses / Procedures Referred By Santo recinos Referred To Contact Diagnoses Achilles bursitis of left lower extremity Ludy Johnson PA-C [address] [place] [address] Referral ID Status Reason Start Date Expiration Date V isits Requested Visits Authorized [id number] Pending Review 08/22/2023 08/21/2024 1 1 Question Answer Consult Type: Foot/Ankle Type: Per Protocol Scheduling Instructions: The [facility] Cake Batter Mixer will call you to coordinate your care as prescribed by your provider. A termite control service representative will call you within 2 business days to help you schedule your appointment, or you may contact the Cake Batter Mixer Information Lead at: . Comments Please be aware that coverage of these services is subject to the terms and limitations of your health insurance plan. Call member services at your health plan with any benefit or coverage questions. The [facility] Cake Batter Mixer will call you to coordinate your care as prescribed by your provider. A termite control service representative will call you within 2 business days to help you schedule your appointment, or you may contact the Cake Batter Mixer Information Lead at: . * Diagnostic Imaging Mammo (Routine) - Pending Review Specialty Diagnoses / Procedures Referred By Santo recinos Referred To Contact Radiology. Diagnoses Visit for screening mammogram Procedures MA SCREENING DIGITAL BILAT - Future (s+30) Ludy Johnson PA-C [address] [place] [address] Referral ID Status Reason Start Date Expiration Date V isits Requested Visits Authorized [id number] Pending Review 08/22/2023 08/21/2024 1 1 Reason for Visit * Reason Comments RECHECK F/U mood changes and left foot burning and swelling Encounter Details Date Type Department Care Team (Late st Contact Info) Description 08/22/2023 9:00 AM CDT Office Visit [facility] [address] [place] [address] Ludy Johnson PA-C [address] [place] [address] Severe episode of recurrent major depressive disorder, without psychotic features (H) (Primary Dx); Achilles bursitis of left lower extremity; Pre-diabetes; Dermatitis; Visit for screening mammogram Social History Tobacco Use Types Packs/Day Years [...] in an abandoned building, in an overnight longterm, or couch-surfing.) Yes 04/30/2023 Are you worried [...] AM CDT Height 170.2 cm (5' 7) 08/22/2023 9:01 AM CDT Body Mass Index 46.89 08/22/2023 9:01 AM CDT documented in this encounter Progress Notes * Ludy Johnson PA-C - 08/22/2023 9:00 AM CDT Assessment & Plan (F33.2) Severe episode of recurrent major depressive disorder, without psychotic features (H) (primary encounter diagnosis) Comment: Plan: continues care with Psychiatry and therapy. (M76.62) Achilles bursitis of left lower extremity Comment: ice, rest, nsaids, referral to podiatry Plan: Orthopedic Cake Batter Mixer Referral (R73.03) Pre-diabetes Comment: await labs. Plan: Hemoglobin A1c (L30.9) Dermatitis Comment: referral faxed. Emollients Plan: betamethasone dipropionate (DIPROSONE) 0.05 % external ointment, Adult Dermatology Cake Batter Mixer Referral (Z12.31) Visit for screening mammogram Comment: Plan: MA SCREENING DIGITAL BILAT - Future (s+30) Asia Warner is a 62 year old, presenting for the following health issues: RECHECK (F/U mood changes and left foot burning and swelling) 08/22/2023 8:57 AM Additional Questions Roomed by Yael Accompanied by Self HPI Depression and Anxiety How are you doing with your depression since your last visit? Is unsure and has on Abilify for 2 weeks now How are you doing with your anxiety since your last visit? Unsure yet with new medication Are you having other symptoms that might be associated with depression or anxiety? Yes: overeating Have you had a significant life event? No Do you have any concerns with your use of alcohol or other drugs? No Social History Tobacco Use Smoking status: Every Day Current packs/day: 0.50 Average packs/day: 0.5 packs/day for 30.0 years (15.0 ttl pk-yrs) Types: Cigarettes Smokeless tobacco: Never Tobacco comments: 08/09/23 using between 10-15 cigs/day down to 3 or 4 a day Vaping Use Vaping status: Never Used Substance Use Topics Alcohol use: Yes Comment: very rarely Drug use: No 08/07/2023 12:29 PM 08/09/2023 6:27 AM 08/22/2023 8:46 AM PHQ PHQ-9 Total Score 18 19 19 19 7 Q9: Thoughts of better off /self-harm past 2 weeks Not at all Not at all Not at all 04/30/2023 4:23 PM 08/07/2023 1:05 PM 08/22/2023 8:47 AM LANDON-7 SCORE Total Score 14 (moderate anxiety) 16 (severe anxiety) 4 (minimal anxiety) Total Score 14 16 4 08/22/2023 8:46 AM Last PHQ-9 1. Little interest or pleasure in doing things 1 2. Feeling down, depressed, or hopeless 1 3. Trouble falling or staying asleep, or sleeping too much 1 4. Feeling tired or having little energy 2 5. Poor appetite or overeating 1 6. Feeling bad about yourself 1 7. Trouble concentrating 0 8. Moving slowly or restless 0 Q9: Thoughts of better off /self-harm past 2 weeks 0 PHQ-9 Total Score 7 08/22/2023 8:47 AM LANDON-7 1. Feeling nervous, anxious, or on edge 1 2. Not being able to stop or control worrying 1 3. Worrying too much about different things 1 4. Trouble relaxing 0 5. Being so restless that it is hard to sit still 0 6. Becoming easily annoyed or irritable 1 7. Feeling afraid, as if something awful might happen 0 LANDON-7 Total Score 4 If you checked any problems, how difficult have they made it for you to do your work, take care of things at home, or get along with other people? Very difficult Suicide Assessment Five-step Evaluation and Treatment (SAFE-T) How many servings of fruits and vegetables do you eat daily? 0-1 On average, how many sweetened beverages do you drink each day (Examples: soda, juice, sweet tea, etc. Do NOT count diet or artificially sweetened beverages)? 1 How many days per week do you exercise enough to make your heart beat faster? 3 or less How many minutes a day do you exercise enough to make your heart beat faster? 9 or less How many days per week do you miss taking your medication? 0 Follow up on left foot burning concerns for 2 months and swelling over heel. pt also reports scaling area on right anterior leg. Was using old steroid cream, but not getting better. Review of Systems Constitutional, neuro, ENT, endocrine, pulmonary, cardiac, gastrointestinal, genitourinary, musculoskeletal, integument and psychiatric systems are negative, except as otherwise noted. Objective BP 128/72 Pulse 88 Temp 97.6 ??F (36.4 ??C) (Oral) Resp 18 Ht 1.702 m (5' 7) Wt 135.8 kg(299 lb 6.4 oz) LMP 05/30/2007 SpO2 93% BMI 46.89 kg/m?? Body mass index is 46.89 kg/m??. Physical Exam GENERAL: alert and no distress MS: swelling and TTP achilles bursa, FROM SKIN: right anterior leg with scaling plaque 1 cm NEURO: Normal strength and tone, mentation intact and speech normal PSYCH: mentation appears normal, anxious, and fatigued Signed Electronically by: Ludy Johnson PA-C Answers submitted by the patient for this visit: Patient Health Questionnaire (Submitted on 08/22/2023) If you checked off any problems, how difficult have these problems made it for you to do your work,take care of things at home, or get along with other people?: Extremely difficult PHQ9 TOTAL SCORE: 7 LANDON-7 (Submitted on 08/22/2023) LANDON 7 TOTAL SCORE: 4 documented in this encounter Plan of Treatment Upcoming Encounters Date Type Department Care Team (Late st Contact Info) Description 11/29/2023 10:30 AM CDT Virtual Visit [facility] [address] [place] [address] Kathy Edge LICSW [facility] [address], [address] [place] [address] 11/29/2023 11:00 AM CDT Virtual Visit [facility] [address] [place] [phone] Enid Ho, [facility] [address] [place] [address] 12/11/2023 2:45 PM CDT Office Visit [facility] [address] [facility] [address] [place] [phone] Kendrick Lopez MD [address] [place] [phone] Scheduled Orders Name Type Priority Associated Diagnoses Orde r Schedule MA SCREENING DIGITAL BILAT - Future (s+30) Imaging Routine Visit for screening mammogram Expected: 08/22/2023 (Approximate), Expires: 08/21/2024 Scheduled Referrals Name Type Priority Associated Diagnoses Order Schedule Orthopedic Cake Batter Mixer Referral Referral Routine Achilles bursitis of left lower extremity Expected: 08/22/2023 (Approximate), Expires: 08/21/2024 Adult Dermatology Cake Batter Mixer Referral Referral Routine: Next available opening Dermatitis Expected: 08/22/2023 (Approximate), Expires: 08/21/2024 documented as of this encounter Goals Goal [...] contact Social Security Administration to explore my fci options and to see if SSD is an option. . 3. I will consult with [employer] about health insurance options. 4. I will make plan with son and his girlfriend and my expectation for their paying monthly rent and expenses. 5. I will access [employer] program for food. documented as of this encounter Procedures Procedure Name Priority Date/Time Associated Diagnosis Comments HEMOGLOBIN A1C Routine 08/22/2023 9:49 AM CDT Pre-diabetes documented in this encounter Results * (ABNORMAL) Hemoglobin A1c (08/22/2023 9:49 AM CDT) Hemoglobin A1C 6.1(H) 0.0 - 5.6 % 08/22/2023 10:00 AM CDT CR LABORATORY Comment: Normal <5.7% Prediabetes 5.7-6.4% ?? Diabetes 6.5% or higher Note: Adopted from ADA consensus guidelines. Blood BLOOD SPECIMEN / Unknown Venipuncture / Unknown 08/22/2023 9:49 AM CDT 08/22/2023 9:49 AM CDT Ludy Johnson PA-C LAB - BLOOD ORDERA BLES CR LABORATORY [facility] [address] [place] [address] (no room number, 1st floor of clinic) [place] [address], [facility] [phone] documented in this encounter Visit Diagnoses Diagnosis Severe episode of recurrent major depressive disorder, without psychotic features (H)- Primary Achilles bursitis of left lower extremity Pre-diabetes Other abnormal glucose Dermatitis Contact dermatitis and other eczema, due to unspecified cause Visit for screening mammogram Other screening mammogram documented in this encounter Additional Health Concerns Active Problems Noted Date Diagnosed Date Patient expresses financial resource strain 07/23 Assessment Noted Time PHQ-9 Depression Total Score: 7 08/22/19 24 8:46 AM CDT documented as of this encounter Care Teams Graduate Fellow Relationship Specialty Start Date End Date Ludy Johnson PA-C [address] [place] [address] PCP - General Physician Forest Fire Fighter 10/22/15 Ludy Johnson PA-C [address] [place], [place] [phone] Assigned PCP 06/09/18 Sanjana Blair, MIREYA Personal Advocate & Liaison (PAL) Nurse 04/25/23 Vinita Begum, CURTAIN SUPERVISOR Lead Animal Shelter Supervisor Primary Care - CC 08/06/23 Kathy Edge LICSW [address], [address] [place], [place] [address] Assigned Behavioral Health Provider 08/14/23 Danae Carrero, W Community Health Worker Primary Care - CC 08/16/23 documented as of this encounter
--- OUTSIDE RECORDS SUMMARY | 2023-10-28 00:50 | XMS_ITS | Encounter Summary ---
Author Organization [facility] Address [address] [place] [address]. [place] [address] Care Team Providers Care Ingredient Scaler Helper Name Role Phone Ludy Johnson PA-C Primary Care Provider [phone] Ludy Johnson PA-C Unavailable Sanjana Blair RN Unavailable [phone] Xenia Calderon MD Unavailable Vinita Begum EARLY CHILDHOOD LEAD TEACHER Unavailable Reason for Visit * Reason Comments Follow Up Mental Health follow up, discuss appt this am Musculoskeletal Problem Foot Encounter Details Date Type Department Care Team (Late st Contact Info) Description 08/09/2023 11:00 AM CDT Virtual Visit [address] [phone] Ludy Johnson PA-C [address] [place] [phone] Moderate episode of recurrent major depressive disorder (H) (Primary Dx); Anxiety; Achilles bursitis of left lower extremity Social History Tobacco Use Types Packs/Day Years [...] as of this encounter Progress Notes * Ludy Johnson PA-C - 08/09/2023 11:00 AM CDT Alana is a 62 year old who is being evaluated via a billable video visit. How would you like to obtain your AVS? Mail a copy If the video visit is dropped, the invitation should be resent by: Text to cell phone: [phone] Will anyone else be joining your video visit? No Assessment & Plan (F33.1) Moderate episode of recurrent major depressive disorder (H) (primary encounter diagnosis) Comment: Continue plan of care with psychiatry and therapist. Agree with leave of absence for work.FMLA reviewed and filled out with patient today. Follow-up in 2 weeks with primary care. Plan: (F41.9) Anxiety Comment: See above for further plan. Continue with current medications. Work on self-care.2 Plan: (M76.62) Achilles bursitis of left lower extremity Comment: Difficult to tell from video but I do see swelling over posterior heel on left. Patient will try ibuprofen 800 mg 3 times daily with food for 1 week. We will have her follow-up in the clinicin 2 weeks. May need to get x-ray or consider referral to podiatry. symptoms are consistent with Achilles bursitis Plan: Asia Warner is a 62 year old, presenting for the following health issues: No chief complaint on file. 08/09/2023 10:30 AM Additional Questions Roomed by Charis Robertson Musculoskeletal Problem History of Present Illness Mental Health Follow-up: Patient presents to follow-up on Depression & Anxiety.Patient's depression since last visit has been: Worse The patient is having other symptoms associated with depression. Patient's anxiety since last visit has been: Bad The patient is having other symptoms associated with anxiety. Any significant life events: job concerns, financial concerns and health concerns Patient is feeling anxious or having panic attacks. Patient has no concerns about alcohol or drug use. She eats 0-1 servings of fruits and vegetables daily.She consumes 1 sweetened beverage(s) daily.Sheexercises with enough effort to increase her heart rate 10 to 19 minutes per day. She exercises with enough effort to increase her heart rate 3 or less days per week. She is taking medications regularly. Patient did meet with psychiatry today as well as therapy. Abilify 2 mg was added. Dose was adjusted on gabapentin, mirtazapine was discontinued, desvenlafaxine was continued. She will follow-up with them in 1 month. She will follow-up with primary care in 2weeks. She would like to discuss leave of absence for work to focus on mental and physical health. Derm Issue-L foot/heel (blister like bump) When did you first notice your pain? 2 months, has not been going away. Lump has got bigger in the 2 months. Can be very painful, burning sensation when walking. Not open or draining. At times will be bigger some days. Has never been evaluated before. Patient denies any known trauma to the area. She can bend and flex foot normally. Notices pain increased with going up and down stairs. Review of Systems Constitutional, HEENT, cardiovascular, pulmonary, gi and gu systems are negative, except as otherwise noted. Objective Physical Exam GENERAL: alert and no distress EYES: Eyes grossly normal to inspection. No discharge or erythema, or obvious scleral/conjunctival abnormalities. RESP: No audible wheeze, cough, or visible cyanosis. SKIN: Visible skin clear. No significant rash, abnormal pigmentation or lesions. NEURO: Cranial nerves grossly intact. Mentation and speech appropriate for age. PSYCH: Appropriate affect, tone, and pace of words Video-Visit Details Type of service: Video Visit Originating Location (pt. Location): Home Distant Location (provider location): Off-site Platform used for Video Visit: Carrie Signed Electronically by: Ludy Johnson PA-C documented in this encounter Plan of Treatment Upcoming Encounters Date Type Department Care Team (Late st Contact Info) Description 11/29/2023 10:30 AM CDT Virtual Visit [facility] [address] [phone] Kathy Edge LICSW [facility] [address] [place] [address] 11/29/2023 11:00 AM CDT Virtual Visit [facility] [address] [address] Enid Ho, [facility] [address] [place], [place] [phone] 12/11/2023 2:45 PM CDT Office Visit [facility] [address] [facility] [address] [place] [phone] Kendrick Lopez MD [address] [place] [phone] documented as of this encounter Visit Diagnoses Diagnosis Moderate episode of recurrent major depressive disorder (H)- Primary Anxiety Anxiety state, unspecified Achilles bursitis of left lower extremity documented in this encounter Additional Health Concerns Assessment Noted Time PHQ-9 Depression Total Score: 19 024 6:27 AM CDT documented as of this encounter Care Teams Ingredient Scaler Helper Relationship Specialty Start Date End Date Ludy Johnson PA-C [address] [place] [address] PCP - General Physician Movers 10/22/15 Ludy Johnson PA-C [address] [place] [address] Assigned PCP 06/09/18 Sanjana Blair RN Personal Advocate & Liaison (PAL) Nurse 04/25/23 Xenia Calderon MD [address] [place] [phone] Assigned Surgical Provider 05/25/23 08/13/23 Vinita Begum LSW Lead Sales Contracts Analyst Primary Care - CC 08/06/23 documented as of this encounter
--- OUTSIDE RECORDS SUMMARY | 2023-10-28 00:50 | XMS_ITS | Encounter Summary ---
Author Organization [facility] Address [address] [place] [address]. [place] [address] Care Team Providers Care Equipment Planner Name Role Phone Ludy Johnson PA-C Primary Care Provider [phone] Ludy Johnson PA-C Unavailable Sanjana Blair RN Unavailable Vinita Begum DENTAL EQUIPMENT TECHNICIAN Unavailable Kathy Edge HYDRAULICS ENGINEER Unavailable [phone] Danae Carrero CHW Unavailable Reason for Visit * Reason Onset Date Comments [facility] 08/23/2023 Encounter Details Date Type Department Care Team (Late st Contact Info) Description 08/23/2023 Telephone [facility] [id number] [place] [phone] Ludy Johnson PA-C [address] [place] [address] [facility] Social History Tobacco Use Types Packs/Day Years [...] in an abandoned building, in an overnight correction, or couch-surfing.) Yes 04/30/2023 Are you worried [...] encounter Miscellaneous Notes * Telephone Encounter - Jojo Nunez - 08/23/2023 3:07 PM CDT Called [facility]-they were looking for Mental Health Status-informed form was completed and faxed to them on 08/22/2023. They will contact us if they need more information. Corrina Nunez/GUERLINE * Telephone Encounter - Ayse Castillo - 08/23/2023 2:28 PM CDT FYI - Status Update Who is Calling: [employer] disability Update: following on fax Does caller want a call/response back: Yes Could we send this information to you in MyChart or would you prefer to receive a phone call?: [phone] Phone: [phone] ext [phone] documented in this encounter Plan of Treatment Upcoming Encounters Date Type Department Care Team (Late st Contact Info) Description 11/29/2023 10:30 AM CDT Virtual Visit [facility] Mental Health & Addiction [place] [id number] [place] [address] Kathy Edge LICSW [facility] [address] [place] [address] 11/29/2023 11:00 AM CDT Virtual Visit [facility] Health & Addiction [facility] [address] [place] [address] [place] Ho, YASMIN [address] [place], [place] [address] 12/11/2023 2:45 PM CDT Office Visit [facility] [address] [facility] [address] [place] [phone] Kendrick Lopez MD [address] [place] [id number] documented as of this encounter Goals Goal [...] documented as of this encounter Care Teams Equipment Planner Relationship Specialty Start Date End Date Ludy Johnson PA-C [address] [place] [address] PCP - General Physician Accounts Payable Professional 10/22/15 Ludy Johnson PA-C [address] [place] [address] Assigned PCP 06/09/18 Sanjana Blair, MIREYA Personal Advocate & Liaison (PAL) Nurse 04/25/23 Vinita Begum, DENTAL EQUIPMENT TECHNICIAN Lead Aircraft Maintenance Supervisor Primary Care - CC 08/06/23 Kathy Edge LICSW [address], [address] [place], [place] [address] Assigned Behavioral Health Provider 08/14/23 Danae Carrero, W Community Health Worker Primary Care - CC 08/16/23 documented as of this encounter
--- OUTSIDE RECORDS SUMMARY | 2023-10-28 00:50 | XMS_ITS | Encounter Summary ---
Author Organization [facility] Address [address] [place] [address]. [place] [address] Care Team Providers Care Printed Circuit Board Drafter Name Role Phone Ludy Johnson PA-C Primary Care Provider [phone] Ludy Johnson PA-C Unavailable Sanjana Blair RN Unavailable Xenia Calderon MD Unavailable [phone] Danae Carrero W Unavailable [phone] Reason for Visit * Reason Onset Date Comments Patient Request 07/31/2023 MIREYA ZAVALA Encounter Details Date Type Department Care Team (Late st Contact Info) Description 07/31/[address] [address] Ludy Johnson PA-C [address] [place] [address] Patient Request (MIREYA ZAVALA ) Social History Tobacco Use Types Packs/Day Years Used Date Smoking Tobacco: Light Smoker Cigarettes 0.5 30 Smokeless Tobacco: Never Comments:down to 3 or 4 a da y Alcohol Use Standard Drinks/Week Comments Yes 0 (1 standard drink = 0.6 oz pur e alcohol) very rarely PHQ-2 Answer Date Recorded PHQ-2 Score 6 05/01/2023 Adolescent Education Answer Date Record ed Getting [...] Answer Date Recorded Do you have housing? ([place] g is defined as stable permanent housing [...] encounter Miscellaneous Notes * Telephone Encounter - Ludy Johnson PA-C - 08/03/2023 7:12 AM CDT Reviewed RN message. Will wait for appt with patient. 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 Has used up all PTO has used up all money in [address] 40 year old son lives with her does not work and his girlfriend who works two jobs but will not help pay any of the bills Patient is considering disability, has many questions about this States compliance with medications as prescribed Denies suicidal thoughts R-(recommendations): Scheduled video visit with Ludy Johnson PA-C on 08/09/2023 Advised if would like to take a leave of absence from work to get forms sent so pcp can fill out Patient would then have time to meet with a therapist, however uncertain if she can afford this as struggling to even pay the visits with pcp Discussed care coordination referral, they can discuss den care and disability process patient is agreeable but would like to wait until talks to pcp to have referral sent Sanjana Blair, Registered Nurse, PAL (Patient Advocate Liason) [facility] [phone] * Telephone Encounter - Sanjana Blair RN - 08/02/2023 1:35 PM CDT Message left for patient to return call to this RN PAL - please transfer if available Direct number left for this RN PAL on message for return call Detailed message left for patient to please return call to RN PAL if we can be of any further assistance, we could discuss a sooner appt option if that would be helpful please return call RN has left multiple messages and sent a my chart message - closing this encounter and will assist when patient returns call MIREYA Dominguez (Patient Advocate Liaison) [facility] [phone] * Telephone Encounter - Sanjana Blair RN - 08/02/2023 1:34 PM CDT Message left for patient to return call to this MIREYA PAL - please transfer if available Direct number left for this RN PAL on message for return call MIREYA Dominguez (Patient Advocate Liaison) [facility] [phone] * Telephone Encounter - Sanjana Blair RN - 08/01/2023 2:04 PM CDT Message left for patient to return call to this RN LUCAS - please transfer if available Direct number left for this RN LUCAS on message for return call MIREYA Dominguez (Patient Advocate Liaison) [facility] [phone] * Telephone Encounter - Sanjana Blair RN - 08/01/2023 10:23 AM CDT MIREYA ZAVALA received voicemail from patient I was having a panic attack and was having a hard time thinking or speaking I am feeling better today, and am at work I took some hydroxyzine and took a nap I have been missing a lot of work lately - this is causing anxiety, have been working at this for 23 years I have an appt on 08/22/2023 and will be at that appt I will try to call you back today before 3 pm MIREYA ZAVALA plans to place in sooner virtual visit with pcp, and can still come to visit scheduled on 08/22/2023 Sanjana Blair, Registered Nurse, PAL (Patient Advocate Liaison) [facility] [phone] * Telephone Encounter - Sanjana Blair RN - 08/01/2023 8:35 AM CDT Message #2 left for patient to return call to this RN PAL - please transfer if available Direct number left for this RN LUCAS on message for return call My chart message also sent MIREYA Dominguez (Patient Advocate Liaison) [facility] [phone] * Telephone Encounter - Sanjana Blair RN - 07/31/2023 2:54 PM CDT Message left for patient to return call to this RN LUCAS - please transfer if available Direct number left for this RN PAL on message for return call Sanjana Blair RN PAL (Patient Advocate Liaison) [facility] [phone] * Telephone Encounter - Sissy Bella RN - 07/31/2023 9:12 AM CDT Pt called requesting to speak to Sanjana ZAVALA. Pt is stuttering, asked what I could do to help she said she just wants to speak to Sanjana. Pt reports she is having high anxiety, and again requests to speak to Sanjana. Pt requesting call back. Sissy Bella RN, BSN [facility] documented in this encounter Plan of Treatment Upcoming Encounters Date Type Department Care Team (Late st Contact Info) Description 11/29/2023 10:30 AM CDT Virtual Visit [facility] Mental Health & Addiction [address] [phone] Kathy Edge LICSW [facility] - [address] [address] 11/29/2023 11:00 AM CDT Virtual Visit [facility] Mental Health & Addiction [address] [phone] [place], [facility] [address] [place], [place] [address] 12/11/2023 2:45 PM CDT Office Visit [facility] Heart [facility] [address] [facility] [address] [place] [phone] Kendrick Lopez MD [address] [place] [phone] documented as of this encounter Visit Diagnoses Not on filedocumented in this encounter Additional Health Concerns Assessment Noted Time PHQ-9 Depression Total Score: 19 024 4:21 PM COMPUTER SECURITY COORDINATOR documented as of this encounter Care Teams Printed Circuit Board Drafter Relationship Specialty Start Date End Date Ludy Johnson PA-C [address] [place] [address] PCP - General Physician Full Stack Software Developer 10/22/15 Ludy Johnson PA-C [address] [place] [address] Assigned PCP 06/09/18 Sanjana Blair RN Personal Advocate & Liaison (PAL) Nurse 04/25/23 Xenia Calderon MD [address] [place] [id number] Assigned Surgical Provider 05/25/23 08/13/23 Danae Carrero, W Community Health Worker Primary Care - CC 08/03/23 documented as of this encounter
--- OUTSIDE RECORDS SUMMARY | 2023-10-28 00:50 | XMS_ITS | Encounter Summary ---
Author Organization [facility] Address [address] [place] [address]. [place] [address] Care Team Providers Care Life Skills Instructor Name Role Phone Ludy Hurst PA-C Primary Care Provider [phone] uLdy Hurst PA-C Unavailable [phone] Sanjana Blair RN Unavailable Xenia Calderon MD Unavailable Vinita Begum TRADING ANALYST Unavailable Reason for Visit * Reason Onset Date Comments Forms 08/07/2023 [facility] Source Leav e Request Number: [id number] Encounter Details Date Type Department Care Team (Late st Contact Info) Description 08/07/[address] [place] [address] [phone] Ludy Hurst PA-C [address] [place] [phone] Forms ([facility] Source Leave Request Number: [id number]) Social History Tobacco Use Types Packs/Day Years [...] Getting School Help Needed Not on file 09/26 /2023 Food Insecurity Answer Date Recorded Within the [...] in an abandoned building, in an overnight residential, or couch-surfing.) Yes 04/30/2023 Are you worried [...] * Telephone Encounter - Jojo Nunez - 08/09/2023 2:39 PM CDT Form faxed, copy sent to [facility], mailed to patient and in accordion file at [facility], 08/09/2023. Corrina Nunez/GUERLINE * Telephone Encounter - Ludy Hurst PA-C - 08/09/2023 1:01 PM CDT Forms are in my outbox. Please: 1) Fax 2) Copy at [employer] (accordian file) 3) Abstract 4) Mail copy to patient Ludy Marquez PA-C * Telephone Encounter - Nusrat Oglesby - 08/07/2023 2:53 PM CDT Forms/Letter Request Type of form/letter: [place] Source Leave Request Number: [id number] Do we have the form/letter: Yes: In PCP in basket Who is the form from? [facility] Source Leave Request Number: [id number] (if other please explain) Where did/will the form come from? form was faxed in When is form/letter needed by: How would you like the form/letter returned: *PT HAS APPT WITH LUDY HURST ON 08/09/2023* GUERLINE Mullen documented in this encounter Plan of Treatment Upcoming Encounters Date Type Department Care Team (Late st Contact Info) Description 11/29/2023 10:30 AM CDT Virtual Visit [facility] Mental Health & Addiction [address] [phone] Kathy Edge LICSW [facility] - [address] [address] 11/29/2023 11:00 AM CDT Virtual Visit [facility] Health & Addiction [address] [phone] [place], [facility] [address] [place], [place] [address] 12/11/2023 2:45 PM CDT Office Visit [facility] Heart [facility] [address] [facility] [address] [place] [phone] Kendrick Lopez MD [address] [place] [phone] documented as of this encounter Visit Diagnoses Not on filedocumented in this encounter Additional Health Concerns Assessment Noted Time PHQ-9 Depression Total Score: 18 024 12:29 PM CDT documented as of this encounter Care Teams Life Skills Instructor Relationship Specialty Start Date End Date Ludy Hurst PA-C [address] [place] [address] PCP - General Physician Cracking Unit Operator 10/22/15 Ludy Hurst PA-C [address] [place] [address] Assigned PCP 06/09/18 Sanjana Blair RN Personal Advocate & Liaison (PAL) Nurse 04/25/23 Xenia Calderon MD [address] [place] [address] Assigned Surgical Provider 05/25/23 08/13/23 Vinita Begum LSW Lead Wedding Makeup Artist Primary Care - CC 08/06/23 documented as of this encounter
--- OUTSIDE RECORDS SUMMARY | 2023-10-28 00:50 | XMS_ITS | Encounter Summary ---
Author Organization [facility] Address [address] [place] [address]. [place] [address] Care Team Providers Care Information Lead Name Role Phone Ludy Johnson PA-C Primary Care Provider [phone] Ludy Johnson PA-C Unavailable Sanjana Blair RN Unavailable Xenia Calderon MD Unavailable Vinita Begum MOTOR VEHICLE REPRESENTATIVE Unavailable [phone] Encounter Details Date Type Department Care Team (Late st Contact Info) Description 08/07/2023 1:00 PM CDT Virtual Visit [facility] Mental Health & Addiction [address] [phone] Torie Monroy, [facility] [id number] [place] [id number] Depression, unspecified depression type (Primary Dx) Social [...] Date Recorded Do you have housing? (Hua etienne is defined as stable permanent housing and does not include staying ouside in a car, in a tent, in an abandoned building, in an overnight fpc, or couch-surfing.) Yes 04/30/2023 Are you worried [...] as of this encounter Progress Notes * Torie Monroy, MAPLE SYRUP MAKER - 08/07/2023 1:00 PM CDT [facility] Primary Care: Integrated Behavioral Health August 07, 2023 Behavioral Health Clinician Progress Note Patient Name: Alana Chiu Service Type: Individual Service Location: MyChart / Email (patient reached) Session Start Time: 1:04 p.m. Session End Time: 1:50 p.m. Session Length: 38 - 52 Attendees: Client Service Modality: Phone Visit: Provider verified identity through the following two step process. Patient provided: Patient photo and Patient Telephone Visit: The patient's condition can be safely assessed and treated via synchronous audio telemedicine encounter. Reason for Audio Telemedicine Visit: Patient has requested telehealth visit Originating Site (Patient Location): Patient's home Distant Site (Provider Location): [facility] MENTAL HEALTH & ADDICTION [facility] Consent: The patient/guardian has verbally consented to: 1. The potential risks and benefits of telemedicine (telephone visit) versus in person care; The patient has been notified of the following: We have found that certain health care needs can be provided without the need for a face to face visit. This service lets us provide the care you need with a phone conversation. I will have full access to your [facility] medical record during this entire phone call. I will be taking notes for your medical record. Since this is like an office visit, we will bill your insurance company for this service. There are potential benefits and risks of telephone visits (e.g. limits to patient confidentiality)that differ from in-person visits.?Confidentiality still applies for telephone services, and nobodywill record the visit. It is important to be in a quiet, private space that is free of distractions(including cell phone or other devices) during the visit.?? If during the course of the call I believe a telephone visit is not appropriate, you will not be charged for this service Consent has been obtained for this service by care bioinformatics team member: Yes Visit Activities (Refresh list every visit): [facility] and [facility] Only Diagnostic Assessment Date: Treatment Plan Review Date: See Flowsheets for today's PHQ-9 and LANDON-7 results Previous PHQ-9: 08/08/2022 1:16 PM 04/30/2023 4:21 PM 08/07/2023 12:29 PM PHQ-9 SCORE PHQ-9 Total Score MyChart 19 (Moderately severe depression) 18 (Moderately severe depression) PHQ-9 Total Score 13 19 18 Previous LANDON-7: 01/12/2022 1:51 PM 03/12/2022 1:09 PM 04/30/2023 4:23 PM LANDON-7 SCORE Total Score 16 (severe anxiety) 17 (severe anxiety) 14 (moderate anxiety) Total Score 16 17 14 CAROLINA LEVEL: 09/23/2010 2:00 PM CAROLINA Score (Last Two) CAROLINA Raw Score 39 Activation Score 56.4 CAROLINA Level 3 DATA Extended Session (60+ minutes): No Interactive Complexity: No Crisis: No [facility] Patient: No Treatment Objective(s) Addressed in This Session: Target Behavior(s): disease management/lifestyle changes depressed mood, anxiety N/a first visit Current Stressors / Issues: Pt is a 62-year-old female who presents today as a referral from PCP, Ludy Johnson. Pt reports she is very overwhelmed by her job, finances. 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 Pt finds it difficult to be yelled at by customers. 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 Pt has taken out residential to pay her bills and feeling hopeless about residential and having to work until age 69 for full benefits. Pt has a history significant for depression and anxiety and has been consuming psychotropic medications to treat it. She questions whether she needs to come back to see proposal manager writer and expresses concernover paying for this visit and future therapy visits. Pt lives with her son and granddaughter. She reports she was supposed to be getting money from month but isn't getting much money for bills. Grinding Machine Tender explained some no-cost options for counseling, including [facility], which proposal manager writer sent via My Chart. Grinding Machine Tender reached out to care coordination, who will apparently be meeting withpt this week. Progress on Treatment Objective(s) / Homework: N/a- initial visit Also provided psychoeducation about behavioral health condition, symptoms, and treatment options Assessments completed prior to visit: The following assessments were completed by patient for this visit: PROMIS 10-Global Health (all questions and answers displayed): 08/07/2023 1:12 PM PROMIS 10 In general, would you say your health is: Poor In general, would you say your quality of life is: Poor In general, how would you rate your physical health? Poor In general, how would you rate your mental health, including your mood and your ability to think? Poor In general, how would you rate your satisfaction with your social activities and relationships? Poor In general, please rate how well you carry out your usual social activities and roles Poor To what extent are you able to carry out your everyday physical activities such as walking, climbing stairs, carrying groceries, or moving a chair? A little In the past 7 days, how often have you been bothered by emotional problems such as feeling anxious,depressed, or irritable? Always In the past 7 days, how would you rate your fatigue on average? Severe In the past 7 days, how would you rate your pain on average, where 0 means no pain, and 10 means worst imaginable pain? 3 In general, would you say your health is: 1 In general, would you say your quality of life is: 1 In general, how would you rate your physical health? 1 In general, how would you rate your mental health, including your mood and your ability to think? 1 In general, how would you rate your satisfaction with your social activities and relationships? 1 In general, please rate how well you carry out your usual social activities and roles. (This includes activities at home, at work and in your community, and responsibilities as a parent, child, spouse, employee, friend, etc.) 1 To what extent are you able to carry out your everyday physical activities such as walking, climbing stairs, carrying groceries, or moving a chair? 2 In the past 7 days, how often have you been bothered by emotional problems such as feeling anxious,depressed, or irritable? 5 In the past 7 days, how would you rate your fatigue on average? 4 In the past 7 days, how would you rate your pain on average, where 0 means no pain, and 10 means worst imaginable pain? 3 Global Mental Health Score 4 Global Physical Health Score 9 PROMIS TOTAL - SUBSCORES 13 [place] Suicide Severity Rating Scale (Lifetime/Recent) 04/26/2023 3:53 PM 04/26/2023 6:46 PM 04/26/2023 9:45 PM 04/27/2023 1:00 PM 04/27/2023 4:30 PM [place] Suicide Severity Rating (Lifetime/Recent) Q1 Wish to be (Lifetime) Yes Q2 Non-Specific Active Suicidal Thoughts (Lifetime) No Q1 Wished to be (Past Month) no yes Q2 Suicidal Thoughts (Past Month) no yes Q3 Suicidal Thought Method no no no Q4 Suicidal Intent without Specific Plan no no no Q5 Suicide Intent with Specific Plan no no no Q6 Suicide Behavior (Lifetime) no no no no no Level of Risk per Screen low risk 3. Active Suicidal Ideation with any Methods (Not Plan) Without Intent to Act (Lifetime) N Q4 Active Suicidal Ideation with Some Intent to Act, Without Specific Plan (Lifetime) N Q5 Active Suicidal Ideation with Specific Plan and Intent (Lifetime) N Description of Most Severe Ideation (Past 1 Month) Pt shares significant distress leads to brief thoughts of passive SI, but denies any active ideation or intent Frequency (Past 1 Month) 3 Duration (Past 1 Month) 1 Controllability (Past 1 Month) 2 Deterrents (Past 1 Month) 1 Reasons for Ideation (Past 1 Month) 5 Actual Attempt (Lifetime) N Actual Attempt (Past 3 Months) N Total Number of Actual Attempts (Past 3 Months) 0 Actual Attempt Description (Past 3 Months) NA Has subject engaged in non-suicidal self-injurious behavior? (Lifetime) N Has subject engaged in non-suicidal self-injurious behavior? (Past 3 Months) N Interrupted Attempts (Lifetime) N Interrupted Attempts (Past 3 Months) N Total Number of Interrupted Attempts (Past 3 Months) 0 Interrupted Attempt Description (Past 3 Months) NA Aborted or Self-Interrupted Attempt (Lifetime) N Aborted or Self-Interrupted Attempt (Past 3 Months) N Total Number of Aborted or Self-Interrupted Attempts (Past 3 Months) 0 Aborted or Self-Interrupted Attempt Description (Past 3 Months) NA Preparatory Acts or Behavior (Lifetime) N Preparatory Acts or Behavior (Past 3 Months) N Total Number of Preparatory Acts (Past 3 Months) 0 Preparatory Acts or Behavior Description (Past 3 Months) NA Calculated C-SSRS Risk Score (Lifetime/Recent) No Risk Indicated No Risk Indicated Care Plan review completed: Yes Medication Review: Changes to psychiatric medications, see updated Medication List in EPIC. Pt recently began trial regimen of Remeron for sleep. Has been consuming Pristiq for depression andanxiety. Also takes Hydroxyzine for anxiety. Medication Compliance: Yes Changes in Health Issues: Yes: has many- digestive, endocrine, circulatory, musculoskeletal. Pt also smokes Chemical Use Review: Substance Use: Chemical use reviewed, no active concerns identified Tobacco Use: No change in amount of tobacco use since last session. Pre-contemplation Assessment: Current Emotional / Mental Status (status of significant symptoms): Risk status (Self / Other harm or suicidal ideation) Patient has had a history of suicidal ideation: passive SI- passing but I don't believe in that. Pt states suicide is cowardly and she doesn't spend much time on these thoughts. Notes her son, granddaughter, sister, and rest of family are protective factors. I couldn't put them through that, there's no way. Patient denies current fears or concerns for personal safety. Patient denies current or recent suicidal ideation or behaviors. Patient denies current or recent homicidal ideation or behaviors. Patient denies current or recent self injurious behavior or ideation. Patient denies other safety concerns. A safety and risk management plan has not been developed at this time, however patient was encouraged to call [place] [phone] should there be a change in any of these risk factors. Appearance: N/a phone Eye Contact: phone Psychomotor Behavior: phone Attitude: Interested Friendly Orientation: All Speech Rate / Production: Normal/ Responsive Volume: Normal Mood: Anxious Dysphoric Affect: N/a- phone; tearful Thought Content: Clear Perseverative Thought Form: Coherent Circumstantial Insight: Fair Diagnoses: 1. Depression, unspecified depression type Cluster B traits Collateral Reports Completed: Communicated with: PCP Plan: (Homework, other): Patient was given information about behavioral services and encouraged to schedule a follow up appointment with the clinic [facility] as needed. She was also given information about mental health symptoms and treatment options . CD Recommendations: No indications of CD issues. BRIDGETTE Soriano documented in this encounter Plan of Treatment Upcoming Encounters Date Type Department Care Team (Late st Contact Info) Description 11/29/2023 10:30 AM CDT Virtual Visit [facility] Mental Health & Addiction [address] [phone] Kathy Edge LICSW [address] [address] 11/29/2023 11:00 AM CDT Virtual Visit [facility] Health & Addiction [address] [phone] Enid Ho, [facility] [address] [place] [address] 12/11/2023 2:45 PM CDT Office Visit [facility] Heart [facility] [address] [facility] [address] [place] [phone] Kendrick Lopez MD [address] [place] [phone] documented as of this encounter Visit Diagnoses Diagnosis Depression, unspecified depression type- Primary documented in this encounter Additional Health Concerns Assessment Noted Time PHQ-9 Depression Total Score: 18 024 12:29 PM CDT documented as of this encounter Care Teams Information Lead Relationship Specialty Start Date End Date Ludy Johnson PA-C [id number] [place] [address] PCP - General Physician Shirring Machine Operator 10/22/15 Ludy Johnson PA-C [address] [place] [address] Assigned PCP 06/09/18 Sanjana Blair, MIREYA Personal Advocate & Liaison (PAL) Nurse 04/25/23 Xenia Calderon MD [address] [place] [id number] Assigned Surgical Provider 05/25/23 08/13/23 Vinita Begum LSW Lead Health Insurance Assessor Primary Care - CC 08/06/23 documented as of this encounter
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
--- OUTSIDE RECORDS SUMMARY | 2023-10-28 00:50 | XMS_ITS | Encounter Summary ---
Author Organization [facility] Address [address] [place] [address]. [place] [address] Care Team Providers Care Director Electronics Name Role Phone Ludy Johnson PA-C Primary Care Provider [phone] Ludy Johnson PA-C Unavailable [phone] Sanjana Blair RN Unavailable Vinita Begum OVERSIZE LOAD PILOT ESCORT Unavailable Kathy Edge HISTOLOGY MANAGER Unavailable Daane Carrero CHW Unavailable Reason for Visit * Reason Onset Date Comments Follow Up 08/28/2023 Forms Encounter Details Date Type Department Care Team (Late st Contact Info) Description 08/28/[address] [address] Ludy Johnson PA-C [id number] [place] [address] Follow Up (Forms ) Social History Tobacco Use Types Packs/Day [...] encounter Miscellaneous Notes * Telephone Encounter - Nusrat Oglesby - 09/04/2023 9:53 AM CDT Faxed to [facility] and [facility]. Called pt to inform faxes have been faxed. Calling [employer] [facility] @ [phone] tt: Fan - paperwork should be received within 30 minutes. I confirmed correct fax number sent and also requested a confirmation of paperwork call back to [phone] ask for the [facility] Team. GUERLINE Mullen * Telephone Encounter - Ludy Johnson PA-C - 09/04/2023 7:00 AM CDT I pulled all the old forms for patient. This NEW form is the exact same form from last time. Please refax all the old forms and the office visit notes I printed to the jayla. Also, refax FMLA Source form to is respective location. Put all forms back in accordion folder. Please call the jayla and the patient to let her know this has been done. * Telephone Encounter - Ludy Johnson PA-C - 09/03/2023 3:37 PM CDT Can MIREYA ZAVALA look at these, since it sounds like [facility] may have faxed them to PCP and they need tomaybe go to psychiatry? Do they look like the same ones they faxed last week? * Telephone Encounter - Nusrat Oglesby - 09/03/2023 2:07 PM CDT Forward to PCP, Ludy Johnson. These forms look like they need to be filled out by Mental Health Provider. I will place in PCP in basket for further direction. Please see RN encounter on 08/28/2023. GUERLINE Mullen * Telephone Encounter - Berna Perez RN - 09/03/2023 10:05 AM CDT RENATO/GUERLINE- Please address request below regarding forms. Routed to MA/GUERLINE pool. Berna Iglesias RN PAL (Patient Advocate Liaison) [facility] * Telephone Encounter - Sree Quiles RN - 08/31/2023 11:16 AM CDT MA/TC: Pt calls and reports that [facility] is needing more medical information to process short term disability claim. Pt states the forms should have already be faxed to the clinic. Pt requests that her PCPsign the forms and fax them back to [facility]. Please keep an eye out for these forms. Provided pt with the station fax # [phone]. Sree Quiles RN on 08/31/2023 at 11:45 AM * Telephone Encounter - Sanjana Blair RN - 08/28/2023 1:50 PM CDT Ludy Johnson PA-C FY Forms that you filled out recently were supposed to be sent to psychiatry, patient did not notify the employer of change in providers In the future if you get forms, maybe we should check to see if you are to fill out or send to psychiatry RN placed call to [facility] psychiatry Advised that pcp received forms from [facility] for short term disability, they were faxed to pcp andshe filled them out Dorota states she was not sure how we got these forms as they had called [facility] and they are notassociated with patient's insurance RN explained these forms are from employer short term disability NOT medical insurance Psychiatry was waiting for the forms, patient requested that they were faxed but they went to the incorrect provider RN advised to educate patient when she needs new forms to advise which provider they should be sentto Will notify pcp Sanjana Bliar Registered Nurse, LUCAS (Patient Advocate Liaison) [facility] * Telephone Encounter - Daisy Bianchi - 08/28/2023 11:43 AM CDT FYI - Status Update Who is Calling: dorota with [facility] Update: phone number for [facility] [phone] - ask for dorota Needing paperwork signed by ludy johnson Need clarification on how PCP got blank paperwork from the [facility] with monicas insurance, - her insurance isn't accepted by the [facility] Does caller want a call/response back: Yes Could we [facility] or would you prefer to receive a phone call?: Patient would prefer a phone call - see above documented in this encounter Plan of Treatment Upcoming Encounters Date Type Department Care Team ([facility] st Contact Info) Description 11/29/2023 10:30 AM CDT Virtual Visit [facility] Mental Health & Addiction [facility] [address] [place] [address] Kathy Edge LICSW [facility] [address] [place] [address] 11/29/2023 11:00 AM CDT Virtual Visit [facility] Health & Addiction [facility] [address] [place] [address] Enid Ho DNP [address] [place], [place] [phone] 12/11/2023 2:45 PM CDT Office Visit [facility] [address] [facility] [address] [place] [phone] Kendrick Lopez MD [address] [place] [phone] documented as of this encounter Goals Goal Patient Goal Type Associated Problems Recent Progress Patient-Stated? Author Create an action plan to increase financial stability Care Plan Patient expresses financial resource strain 10%( 4 3:26 PM CDT) No Vinita Begum, ALEXI [...] as of this encounter Care Teams Director Electronics Relationship Specialty Start Date End Date Ludy Johnson PA-C [address] [place] [address] PCP - General Physician Lining Setter 10/22/15 Ludy Johnsno PA-C [address] [place] [address] Assigned PCP 06/09/18 Sanjana Blair, MIREYA Personal Advocate & Liaison (PAL) Nurse 04/25/23 Vinita Begum, OVERSIZE LOAD PILOT ESCORT Lead Senior Office Assistant Primary Care - CC 08/06/23 Kathy Edge LICSW [address], [address] [place], [place] [address] Assigned Behavioral Health Provider 08/14/23 Danae Carrero, CHW Community Health Worker Primary Care - CC 08/16/23 documented as of this encounter
--- OUTSIDE RECORDS SUMMARY | 2023-10-28 00:50 | XMS_ITS | Encounter Summary ---
Author Organization [facility] Address [address] [place] [address]. [place] [address] Care Team Providers Care Edgerman Name Role Phone Ludy Johnson PA-C Primary Care Provider [phone] Ludy Johnson PA-C Unavailable Sanjana Blair RN Unavailable [phone] Xenia Calderon MD Unavailable [phone] Vinita Begum REGISTERED CLIENT ASSOCIATE Unavailable Kathy Edge DIRECT MARKETING INTERN Unavailable Danae Carrero CHW Unavailable [phone] Enid Ho DNP Unavailable Kendrick Lopez MD Unavailable Encounter Details Date Type Department Care Team (Late st Contact Info) Description 08/07/2023 MyC Medical Advice [facility] Mental Health & Addiction [facility] [address] [place] [address] Torie Monroy, DIRECT MARKETING INTERN [id number] [place] [address] Social History Tobacco Use Types Packs/Day Years [...] Description 11/29/2023 10:30 AM CDT Virtual Visit [facility] Mental Health & Addiction [address] [address] Kathy Edge, DIRECT MARKETING INTERN [facility] [address] [place] [address] 11/29/2023 11:00 AM CDT Virtual Visit [facility] Mental Health & Addiction [facility] [address] [phone] Enid Ho, [facility] [address] [place] [address] 12/11/2023 2:45 PM CDT Office Visit [facility] [address] [facility] [address] [place] [phone] Kendrick Lopez MD [address] [place], [place] [phone] documented as of this encounter Visit Diagnoses Not on filedocumented in this encounter Additional Health Concerns Assessment Noted Time PHQ-9 Depression Total Score: 18 024 12:29 PM CDT documented as of this encounter Care Teams Edgerman Relationship Specialty Start Date End Date Ludy Johnson PA-C [address] [place] [address] PCP - General Physician Recycling Center Operator 10/22/15 Ludy Johnson PA-C [address] [place] [address] Assigned PCP 06/09/18 Sanjana Blair RN Personal Advocate & Liaison (PAL) Nurse 04/25/23 Xenia Calderon MD [address] [place] [phone] Assigned Surgical Provider 05/25/23 08/13/23 Vinita Begum, REGISTERED CLIENT ASSOCIATE Lead Master [place] Primary Care - CC 08/06/23 Kathy Edge LICSW [address], [address] [place] [address] Assigned Behavioral Health Provider 08/14/23 Danae Carrero, W Community Health Worker Primary Care - CC 08/16/23 Enid Ho DNP [address] [place] [address] Assigned Neuroscience Provider 09/13/23 Kendrick Lopez MD [address] [place] [phone] Cardiovascular Disease 09/28/23 documented as of this encounter
--- OUTSIDE RECORDS SUMMARY | 2023-10-28 00:50 | XMS_ITS | Encounter Summary ---
Author Organization [facility] Address [address] [place] [address]. [place] [address] Care Team Providers Care Home Energy Auditor Name Role Phone Ludy Johnson PA-C Primary Care Provider [phone] Ludy Johnson PA-C Unavailable Sanjana Blair RN Unavailable [phone] Xenia Calderon MD Unavailable [phone] Vinita Begum SHAPER HAND Unavailable [phone] Reason for Visit * Reason Comments RECHECK * Mental Health Outpatient (Priority: 1-2 Weeks) - Pending Review Specialty Diagnoses / Procedures Referred By Contzhang t Referred To Contact Behavioral Health Diagnoses Severe episode of recurrent major depressive disorder, without psychotic features (H) Anxiety state Insomnia, unspecified type Ludy Johnson PA-C [id number] [place] [address] Enid Ho, DNP [address] [place] [phone] Referral ID Status Reason Start Date Expiration Date V isits Requested Visits Authorized [id number] Pending Review 08/03/2023 08/02/2024 1 1 Encounter Details Date Type Department Care Team (Late Contact Info) Description 08/09/2023 8:30 AM CDT Virtual Visit [facility] [address] [place] [id number] Enid Ho, [facility] [place] [address] [place] [address] Severe episode of recurrent major depressive disorder, without psychotic features (H) (Primary Dx); Insomnia due to psychological stress Social History Tobacco Use Types Packs/Day Years [...] in an abandoned building, in an overnight skilled nursing, or couch-surfing.) Yes 04/30/2023 Are you worried [...] Patient Instructions * Patient Instructions* Enid Ho, DNP - 08/09/2023 8:30 AM CDT For crisis resources, please see the information at the end of this document Thank you for coming to the [facility]. TREATMENT PLAN: MEDICATIONS: - discontinue the mirtazapine and take 300-600 mg gabapentin at bedtime -start Abilify titrated to 2 mg over one week. -continue remaining medications at current dosages -PSYCHOEDUCATION: Risks of antipsychotic medications: metabolic disorder and movement disorder, andthe need for blood monitoring of sugar and lipids/cholesterol while taking the medication. CONSULTS/REFERRALS: Continue therapy LABS/PROCEDURES: Please call your [facility] clinic and ask for a lab only appointment at your earliest convenience. If your results are reassuring or normal they will be mailed to you or sent through [employer] within 7 days. If the lab tests need quick action we will call you with the results. The phone number we willcall with results is # [phone]. FOLLOW UP: Schedule an appointment with me in six weeks or sooner as needed. The intake team shouldbe calling you to schedule. If you dont hear from them, or they were unable to reach you, please call [phone] to schedule. Follow up with primary care provider as planned or for acute medical concerns. Call the psychiatric nurse line with medication questions or concerns at [phone]. Medication Refills: If you need any refills please call your pharmacy and they will contact us. Our fax number for refills is [phone]. Please allow three business for refill processing. If you need to parts picker your refill at a new pharmacy, please contact the new pharmacy directly. The new pharmacy will help you get your medications transferred. [employer] Assistance Financial Assistance [phone] [facility] Billing [phone] Central Billing Office, [facility]: [phone] [facility] Billing [phone] Medical Records [phone] [facility] Patient Bill of Rights [email or web address] MENTAL HEALTH CRISIS RESOURCES: For a emergency help, please call 911 or go to the nearest Emergency Department. Emergency Walk-In Options: EmPBECKY Unit @ [facility] [place] ([place]): [phone] - Specialized mental health emergency area designed to be calming [facility] ([place]): [phone] [facility] Acute Psychiatry Services ([place]): [phone] [facility]): [phone] National Crisis Information: Call 988 Suicide and Crisis Lifeline Crisis Text Line (free 13/11): call CRISIS (858470) Crisis or use the texting option by texting 138053. National Suicide Prevention Lifeline: Call 988 Poison Control Center: Trans Lifeline: - Hotline for transgender people of all ages The Mompery Project: - Hotline for LGBT youth List of all [facility] resources: https://va.gov/dhs/klysdq-ed-ykwbg/adults/health-care/mental-health/resources/cr zora-contacts.jsp For Non-Emergency Support: Fast Tracker: Mental Health & Substance Use Disorder Resources - https://www.fasttrackermn.org/ Again thank you for choosing [facility] and please let us know how [...] visit, you'll see the behavioral health clinician (C) first. They'll talk with you abouthow you're [...] show if: Your appointment starts with a BHC, and you're more than 15 minutes late [...] someone else's life is in danger. Call 078 anytime to reach the national Suicide and Crisis hotline. Medicine refills To refill your medicine, call your pharmacy. You can also call [facility]'s Behavioral Access at , Sunday to [...] your health care provider. Copyright ?? 2021 [facility]. All rights reserved. M[employer]ent [id number] - 04/13. documented in this encounter Progress Notes * Enid Ho DNP - 08/09/2023 8:30 AM CDT Images from the original note were not included. Virtual Visit Details Type of service: Video Visit Originating Location (pt. Location): Home Distant Location (provider location): Off-site Platform used for Video Visit: [facility] PSYCHIATRIC DIAGNOSTIC ASSESSMENT Name: Alana Chiu : 1960 Referred by: Ludy Johnson [facility] Patient Care Team: Ludy Johnson PA-C as PCP - General (Physician Automobile Dealer) Ludy Johnson PA-C as Assigned PCP Sanjana Blair RN as Personal Advocate & Liaison (PAL) (Nurse) Xenia Calderon MD as Assigned Surgical Provider Vinita Begum LSW as Lead Financial Administration Officer (Primary Care - CC) Therapist: none at present due to finances History was provided by patient who were good historian(s). Patient attended the session alone RECORDS AVAILABLE FOR REVIEW: EHR records through [employer] . In addition, reviewed the assessment todaycompleted by Kathy Edge, [facility], Behavioral Health Search Engine Optimization Consultant CHIEF COMPLAINT Patient is a 62 year old, White Not or female who presents for initial psychiatric evaluation. Referred by their Primary Care Provider: Ludy Johnson PA-C to the [facility] ([facility]) for evaluation of depression and anxiety. Our psychiatry providers act as a specialty service for Primary Care Providers in the [facility] who seek to optimize medications for unstable patients. Once medications have been optimized, our providers discharge the patient back to the referring Primary Care Provider for ongoing medication management. This typeof system allows our providers to serve a high volume of patients. Note by PCP day of referral: severe depression, anxiety, HISTORY OF PRESENT ILLNESS Per [facility], Kathy Edge, during today's team-based visit: Chief Complaint: The reason for seeking services at this time is: Depression. The problem(s) began 04/23/23.Pt reports that she's had depression for may years but worsening last few months. Has attempted to resolve these concerns in the past through medication, counseling ate 17. Can't currentlyafford it right now. Most important: med consult Reports past diagnosis of depression for many [...] absence. 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 This is very stressful. 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 Off this week and working on [employer] paper work. This is not me. No body should live like this and I beat myself up. I can't stand it but I can't do anything about it Feels more calm this week while off work. PSYCHIATRIC HISTORY: Previous psychiatry: denies Previous therapist: historically History of Psychiatric Hospitalizations: - Inpatient: denies - IOP/PHP/Day treatment: denies History of Suicidal Ideation: present History of Suicide Attempts: denies History of Self-injurious Behavior: denies History of Violence/Aggression: denies History of Commitment? Denies Electroconvulsive Therapy (ECT) or Transcranial Magnetic Stimulation (TMS): denies PharmacogenomicTesting (such as GeneSight): denies PSYCHIATRIC REVIEW OF SYSTEMS: Sleep: initial insomnia and middle insomnia Depression: Lack of interest, Excessive or inappropriate [...] compulsive behaviors and treatment history: none . ASSESSMENT SCALES: PHQ-9: 04/30/2023 4:21 PM 08/07/2023 12:29 PM 08/09/2023 6:27 AM PHQ-9 SCORE PHQ-9 Total Score MyChart 19 (Moderately severe depression) 18 (Moderately severe depression) 19 (Moderately severe depression) PHQ-9 Total Score 19 18 19 19 19 PHQ9 score is 19 indicating moderately severe depression. Suicidal ideation: passive, no intent or plan GAD7: 03/12/2022 1:09 PM 04/30/2023 4:23 PM 08/07/2023 1:05 PM LANDON-7 SCORE Total Score 17 (severe anxiety) 14 (moderate anxiety) 16 (severe anxiety) Total Score 17 14 16 GAD7 score is is 15 indicating severe anxiety. The following assessments were completed by patient for this visit: PROMIS 10-Global Health (only subscores and total score): 08/07/2023 1:12 PM 08/09/2023 6:31 AM PROMIS-10 Scores Only Global Mental Health Score 4 4 4 Global Physical Health Score 9 11 11 PROMIS TOTAL - SUBSCORES 13 15 15 FAMILY, MEDICAL, SURGICAL HISTORY REVIEWED. MEDICATION HAVE BEEN REVIEWED AND ARE CURRENT TO THE BEST OF MY KNOWLEDGE AND ABILITY. Single MEDICATIONS Current Outpatient Medications Medication Sig Dispense Refill desvenlafaxine (PRISTIQ) 100 MG 24 hr tablet Take 1 tablet (100 mg) by mouth daily 90 tablet 1 gabapentin (NEURONTIN) 300 MG capsule Take 1 capsule (300 mg) by mouth 2 times daily 180 capsule 1 hydrOXYzine HCl (ATARAX) 25 MG tablet TAKE ONE TO TWO TABLETS BY MOUTH EVERY 6 TO 8 HOURS NEEDEDFOR ANXIETY, TAKE TWO TO FOUR TABLETS BY MOUTH NEEDED FOR SLEEP 90 tablet 1 ipratropium (ATROVENT) 0.03 % nasal spray [place] 2 sprays into both nostrils every 12 hours 30 mL 0 isosorbide mononitrate (IMDUR) 30 MG 24 hr tablet Take 1 tablet (30 mg) by mouth daily - please make cardiology visit for further refills. 90 tablet 0 losartan-hydrochlorothiazide (HYZAAR) 100-12.5 MG tablet Take 1 tablet by mouth daily 90 tablet 3 mirtazapine (REMERON) 15 MG tablet Take 1 tablet (15 mg) by mouth at bedtime 90 tablet [...] Gross MD 1 mL at 07/26/21 1727 [place] Prescription Monitoring Program evaluating controlled substances in the last year in [place]: none noted CURRENT MEDICATION SIDE EFFECTS REPORTED: Denies NOTES ABOUT CURRENT PSYCHOTROPIC MEDICATIONS: desvenlafaxine 100 mg Mirtazapine 15 mg, started in April 2022, initially robustly effective. [facility] Gab[facility]entin 300 mg twice a day, sedating Hydroxyzine as needed, anxiety and panic PAST PSYCHOTROPIC MEDICATIONS: bupropion was effective and then was not, Sertraline Escitalopram VITALS LMP 05/30/2007 BP Readings from Last 1 Encounters: 06/04/23 104/75 Pulse Readings from Last 1 Encounters: 06/04/23 84 Wt Readings from Last 1 Encounters: 06/04/23 130.6 kg (288 lb) Ht Readings from Last 1 Encounters: 06/04/23 1.702 m (5' 7) Estimated body mass index is 45.11 kg/m?? as calculated from the following: Height as of 06/04/23: 1.702 m (5' 7). Weight as of 06/04/23: 130.6 kg (288 lb). PERTINENT HISTORY Patient Active Problem List Diagnosis Herpes zoster Anxiety state Fluid retention in legs Hyperlipidemia LDL goal <100 Hypertension goal BP (blood pressure) < 140/90 Morbid obesity (H) Elevated fasting glucose Mood disorder (H24) Osteoarthritis of acromioclavicular joint Right shoulder pain Stasis dermatitis Cellulitis Fluid retention Bilateral leg edema Prediabetes Diverticulitis large intestine Perforation of sigmoid colon due to diverticulitis H/O ileostomy S/P colostomy (H) Insomnia, unspecified type Pain of right thumb Pain of right hand Combined forms of age-related cataract of both eyes Nuclear cataract, nonsenile Moderate episode of recurrent major depressive disorder (H) Anxiety Acute cough Diarrhea of presumed infectious origin Nausea Coryza Seizures or Head Injury: Denies history of head injury. Denies history of seizures. Past Surgical History: Procedure Laterality Date GI SURGERY 11/2016 ileostomy LAPAROSCOPIC ASSISTED SIGMOID COLECTOMY N/A 12/02/2017 Procedure: LAPAROSCOPIC ASSISTED SIGMOID COLECTOMY; laparoscopic hand-assisted sigmoid colectomy with loop ileostomy; Surgeon: Brunilda Aguilar MD; Location: OR LAPAROSCOPY DIAGNOSTIC (BENCH EXAMINER) PHACOEMULSIFICATION CLEAR CORNEA WITH STANDARD INTRAOCULAR LENS IMPLANT Right 01/17/2022 Procedure: RIGHT EYE PHACOEMULSIFICATION, CATARACT, WITH INTRAOCULAR LENS IMPLANT; Surgeon: Timoteo Fitzpatrick MD; Location: [facility] OR PHACOEMULSIFICATION CLEAR CORNEA WITH STANDARD INTRAOCULAR LENS IMPLANT Left 01/31/2022 Procedure: LEFT EYE PHACOEMULSIFICATION, CATARACT, WITH INTRAOCULAR LENS IMPLANT; Surgeon: Timoteo Fitzpatrick MD; Location: [facility] OR TAKEDOWN ILEOSTOMY N/A 01/14/2018 Procedure: TAKEDOWN ILEOSTOMY; Ileostomy Reversal; Surgeon: Brunilda Aguilar MD; Location: [facility] OR SOCIAL HISTORY Patient reported they grew up in [facility] . They were raised by biological mother [...] close with other sister and B . Relationship status: single, x2 Children: one adult son. 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 Grew up in an intact home with all basic needs being met LEGAL: Denies SUBSTANCE USE HISTORY Social History Tobacco Use Smoking status: Every Day Current packs/day: 0.50 Average packs/day: 0.5 packs/day for 30.0 years (15.0 ttl pk-yrs) Types: Cigarettes Smokeless tobacco: Never Tobacco comments: 08/09/23 using between 10-15 cigs/day down to 3 or 4 a day Substance Use Topics Alcohol use: Yes Comment: very rarely CAGE: 08/07/2023 1:13 PM CAGE-AID Flowsheet Have you ever felt you should Cut down on your drinking or drug use? 0 Have people Annoyed you by criticizing your drinking or drug use? 0 Have you ever felt bad or Guilty about your drinking or drug use? 0 Have you ever had a drink or used drugs first thing in the morning to steady your nerves or to get rid of a hangover? (Eye reject opener and filler) 0 CAGE-AID SCORE 0 Have you ever felt you should Cut down on your drinking or drug use? No Have people Annoyed you by criticizing your drinking or drug use? No Have you ever felt bad or Guilty about your drinking or drug use? No Have you ever had a drink or used drugs first thing in the morning to steady your nerves or to get rid of a hangover? (Eye reject opener and filler) No CAGE-AID SCORE 0 (A total score of 2 or greater is considered clinically significant) Caffeine: unremarkable Alcohol: rarely Other substance use: none Past use alcohol/substance use: cannabis Chemical dependency history: Patient has not received chemical dependency treatment in the past Family History Problem Relation Age of Onset Depression Mother Anxiety Disorder Mother Diabetes Mother Myocardial Infarction Mother Alcoholism Father Heart Disease Father Diabetes Father Alzheimer Disease Father Retinal detachment Father Diabetes Maternal Grandmother PERTINENT FAMILY PSYCHIATRIC HISTORY NOTES +family hx of GEORGETTE (F), M was a hoarder and had other MH problems Maternal: anxiety Paternal: alcohol Substance use history in family: father Family suicide history: not discussed Medications family responded to: unknown Based on the clinical interview, there are not indications of risky substance use. . LABS & IMAGING Recent Labs Lab Test [...] BILITOTAL -- 0.3 Recent Labs Lab Test 05/07/23 1626 CHOL 247* LDL 147* HDL 64 TRIG 179* A1C 6.4* Recent Labs Lab Test 05/28/18 0916 TSH 3.25 25 OH Vit D2 Date Value Ref Range Status 10/20/2010 <5 ug/L Final 25 OH Vit D3 Date Value Ref Range Status 10/20/2010 36 ug/L Final 25 OH Vit D total Date Value Ref Range Status 10/20/2010 30 - 75 ug/L Final <41 Season, race, dietary intake, and treatment affect the concentration of 16-aatinjc-Pbkwmrf D. Values may decrease during winter months and increase during summer months. Values less than 30 ug/L may indicate Vitamin D deficiency. ALLERGY & IMMUNIZATIONS Allergies Allergen Reactions Dilaudid [Hydromorphone] Itching Tolerating morphine and oxycodone fine during this same admission. MEDICAL REVIEW OF SYSTEMS: Ten system review was completed with pertinent positives noted above MENTAL STATUS EXAM: General/Constitutional: Appearance: awake, alert, [...] change in any of these risk factors. LANGUAGE OR COMMUNICATION BARRIERS Are there language or communication issues or need for modification in treatment? NO Are there ethnic, cultural or buddhism factors that may be relevant for therapy? NO Client identified their preferred language to be fluent Turkmen in conversational context Does the client need the assistance of an manager switch or other support involved in therapy? NO DSM 5 DIAGNOSIS: 296.33 (F33.2) Major Depressive Disorder, Recurrent Episode, Severe _ 300.02 (F41.1) Generalized Anxiety Disorder Insomnia due to mental health ASSESSMENT AND PLAN Alana Chiu is a 62 year old White Not or female presenting for psychiatric evaluation and medication management through the [facility]. Information is obtained from patient and available records. Reports history of depression, anxiety and insomnia.Denies prior psychiatric hospitalizations. Hx of suicidal ideation, no suicide attempts. No historyof self-injurious behaviors. Genetically loaded for anxiety, depression and alcohol use. Grew up inan intact home with all basic needs being met. ASSESSMENT AND PLAN Problem List Items Addressed This Visit Behavioral Patient with a long history of depression and multiple medication trials. Had a recent exacerbationof symptoms in April 2023 which led to presenting to the emergency room and staying on the empathy unit at [facility]. The mirtazapine was initially robustly helpful. However [...] but unfortunately financial barriers limit this option Severe episode of recurrent major depressive disorder, without psychotic features (H) - Primary Relevant Medications ARIPiprazole (ABILIFY) 2 MG tablet Other Visit Diagnoses Insomnia due to psychological stress CONSULTS/REFERRALS: Continue therapy Coordinate care with therapist [...] line with medication questions or concerns at [phone]. Gradient Xhart may be used to communicate with your provider, but this is not intended to be used for emergencies. Medlineplus.gov is information for patients. It is run by the National Library of Medicine and it contains information about all disorders, diseases and all medications. COMMUNITY RESOURCES: CRISIS NUMBERS: Provided in AVS 08/09/2023 National Suicide Prevention Lifeline: 7-809-427-TALK (940-868-7302) Luqit/resources for a list of additional resources (SOS) [facility] - [phone] Urgent Care Adult Mental Cxyvkx-[phone] mobile unit/ 13/11 crisis line [facility] -[phone] COPE 13/11 [facility] Mobile Team -[phone] (adults)/ [phone] (child) Poison Control Center - OR 911 OR go to nearest ER Crisis Text Line for any crisis 13/11 send this- To: 885591 [facility] ([facility]) [facility] ER [phone] National Suicide Prevention Lifeline: 603.785.2289 (TTY: 986.682.3776). Call anytime for help. (www.suicidepreventionlifeline.org) National [place] on Mental Illness (www.mckenna.org): 549.874.1501 or 513-755-1209. Mental Health Association (www.mentalhealth.org): 786.416.8020 or 029-965-6625. [place] Crisis Text Line: Text [place] to 509587 Suicide LifeLine Chat: suicideScalix.org/chat ADMINISTRATIVE BILLING: Level of Medical Decision Making: [...] with ongoing continuity of care. Patient Status: Our psychiatry providers act as a specialty service for Primary Care Providers in the [facility] that seek to optimize medications for unstable patients. Once medications have been optimized, our providers discharge the patient back to the referring Primary Care Provider for ongoing medication management. This type of system allows our providers to serve a high volume of patients. At this time Patient will continue to be seen for ongoing consultation and stabilization. Signed: Enid Ho DNP, CLEANER WALL, [facility] ([facility]) Chart documentation done in part with Owingo Voice Recognition software. Although reviewed after completion, some word and grammatical errors may remain. Answers submitted by the patient for this visit: Patient Health Questionnaire (Submitted on 08/09/2023) If you checked off any problems, how difficult have these problems made it for you to do your work,take care of things at home, or get along with other people?: Extremely difficult PHQ9 TOTAL SCORE: 19 documented in this encounter Nursing Notes * Ofe Pena - 08/09/2023 8:30 AM CDT Is the patient currently in the state of [place]? YES Visit mode:VIDEO If the visit is dropped, the patient can be reconnected by: VIDEO VISIT: Text to cell phone: Telephone Information: Will anyone else be joining the visit? No (If patient encounters technical issues they should call [phone]) How would you like to obtain your AVS? MyChart Are changes needed to the allergy or medication list? Pt stated no changes to allergies and Pt stated no med changes Are refills needed on medications prescribed by this physician? NO Rooming Documentation: Attendance Guidelines - Care team has reviewed attendance agreement with patient. Patient advised that two failed appointments within 6 months may lead to termination of current episode of care. Reason for visit: RECHECK Ofe , VVF documented in this encounter Miscellaneous Notes * Assessment & Plan Note - Enid Ho DNP - 08/15/2023 3:58 PM CDT Associated Problem(s): Behavioral Patient with a long history of depression and multiple medication trials. Had a recent exacerbationof symptoms in April 2023 which led to presenting to the emergency room and staying on the empathy unit at [facility]. The mirtazapine was initially robustly helpful. However [...] but unfortunately financial barriers limit this option documented in this encounter Plan of Treatment Upcoming Encounters Date Type Department Care Team (Late st Contact Info) Description 11/29/2023 10:30 AM CDT Virtual Visit [facility] [address] [place] [address] Kathy Edge LICSW [facility] [address] [place] [address] 11/29/2023 11:00 AM CDT Virtual Visit [facility] [address] [place] [phone] Enid Ho, [facility] [place] [address] [place] [address] 12/11/2023 2:45 PM CDT Office Visit [facility] [address] [facility] [address] [place] [phone] Kendrick Lopez MD [address] [place] [address] [phone] documented as of this encounter Visit Diagnoses Diagnosis Severe episode of recurrent major depressive disorder, without psychotic features (H)- Primary Insomnia due to psychological stress documented in this encounter Additional Health Concerns Assessment Noted Time PHQ-9 Depression Total Score: 19 024 6:27 AM CDT documented as of this encounter Care Teams Home Energy Auditor Relationship Specialty Start Date End Date Ludy Johnson PA-C [address] [place] [address] PCP - General Physician Automobile Dealer 10/22/15 Ludy Johnson PA-C [address] [place] [address] Assigned PCP 06/09/18 Sanjana Blair RN Personal Advocate & Liaison (PAL) Nurse 04/25/23 Xenia Calderon MD [address] [place] [address] Assigned Surgical Provider 05/25/23 08/13/23 Vinita Begum, ALEXI Lead Financial Administration Officer Primary Care - CC 08/06/23 documented as of this encounter
--- OUTSIDE RECORDS SUMMARY | 2023-10-28 00:50 | XMS_ITS | Encounter Summary ---
Author Organization [facility] Address [address] [place] [address]. [place] [address] Care Team Providers Care Business Practices Officer Name Role Phone Ludy Johnson PA-C Primary Care Provider [phone] Ludy Johnson PA-C Unavailable Sanjana Blair RN Unavailable [phone] Vinita Begum FORMING MACHINE ADJUSTER Unavailable [phone] Kathy Edge NEW MEDIA STRATEGIST Unavailable [phone] Danae Carrero CHW Unavailable [phone] Reason for Visit * Reason Onset Date Comments Forms 08/16/2023 Attending Tennille scott's Statement Encounter Details Date Type Department Care Team (Late st Contact Info) Description 08/16/2023 Telephone [facility] [id number] [place] [phone] Ludy Johnson PA-C [address] [place] [address] Forms (Attending Physician's Statement) Social History Tobacco Use Types Packs/Day Years [...] * Telephone Encounter - Jojo Nunez - 08/22/2023 1:54 PM CDT Form faxed, copy sent to [facility], mailed to patient and in accordion file at [facility], 08/22/2023. Corrina Nunez/GUERLINE * Telephone Encounter - Ludy Johnson PA-C - 08/21/2023 2:38 PM CDT [facility] form filled out ---it's on top of stack of old forms. Forms are in my outbox. Please: 1) Fax--new 2) Copy at [facility] (accordian file)--new and put old ones back 3) Abstract 4) Mail copy to patient Ludy Marquez PA-C * Telephone Encounter - Nusrat Oglesby - 08/20/2023 9:29 AM CDT We received more forms from the [facility] requesting more information. Pull the last forms from accordian file and place with new forms in PCP in basket. GUERLINE Mullen * Telephone Encounter - Jojo Nunez - 08/17/2023 8:01 AM CDT Form completed and faxed, copy sent to [facility], mailed to patient and in accordion file at [facility], 08/17/2023. Corrina Quigley * Telephone Encounter - Jojo Nunez - 08/17/2023 7:41 AM CDT On your desk. Corrina Quigley * Telephone Encounter - Ludy Johnson PA-C - 08/16/2023 6:26 PM CDT Can someone get me her FMLA forms I just filled out? I need to cross reference dates. * Telephone Encounter - Jojo Nunez - 08/16/2023 9:30 AM CDT Forms/Letter Request Type of form/letter: OTHER: Attending Physician's Statement Do we have the form/letter: Yes: Who is the form from? Insurance comp-[employer] [facility] Where did/will the form come from? form was faxed in When is form/letter needed by: zhou How would you like the form/letter returned: Patient Notified form requests are processed in 5-7 business days: N/A Could we [facility] this information [facility] you [facility] or would you prefer to receive a phone call?: N/A documented in this encounter Plan of Treatment Upcoming Encounters Date Type Department Care Team (Late st Contact Info) Description 11/29/2023 10:30 AM CDT Virtual Visit [facility] Mental Health & Addiction [address] [address] Kathy Edge LICSW [address] [place] [address] 11/29/2023 11:00 AM CDT Virtual Visit [facility] & Addiction [address] [phone] Enid Ho, YASMIN [address] [place], [place] [phone] 12/11/2023 2:45 PM CDT Office Visit [facility] Heart [facility] [address] [facility] [address] [place] [phone] Kendrick Lopez MD [address] [place] [phone] documented as of this encounter Goals Goal [...] . 3. I will consult with [facility] Line about health insurance options. 4. [...] documented as of this encounter Care Teams Business Practices Officer Relationship Specialty Start Date End Date Ludy Johnson PA-C [address] [place] [address] PCP - General Physician Chemical Research Worker 10/22/15 Ludy Johnson PA-C [address] [place] [address] Assigned PCP 06/09/18 Sanjana Blair, MIREYA Personal Advocate & Liaison (PAL) Nurse 04/25/23 Vinita Begum FORMING MACHINE ADJUSTER Lead Art Education Professor Primary Care - CC 08/06/23 Kathy Edge NEW MEDIA STRATEGIST [address], [address] [place] [address] Assigned Behavioral Health Provider 08/14/23 Danae Carrero, W Community Health Worker Primary Care - CC 08/16/23 documented as of this encounter
--- OUTSIDE RECORDS SUMMARY | 2023-10-28 00:50 | XMS_ITS | Encounter Summary ---
Author Organization [facility] Address [address] [place] [address]. [place] [address] Care Team Providers Care Blend Plant Operator Name Role Phone Ludy Johnson PA-C Primary Care Provider [phone] Ludy Johnson PA-C Unavailable Sanjana Blair RN Unavailable Xenia Calderon MD Unavailable [phone] Danae Carrero W Unavailable Reason for Referral * Mental Health Outpatient (Priority: 1-2 Weeks) - Pending Review Specialty Diagnoses / Procedures Referred By Santo t Referred To Contact Behavioral Health Diagnoses Severe episode of recurrent major depressive disorder, without psychotic features (H) Anxiety state Insomnia, unspecified type Ludy Johnson PA-C [address] [place] [address] Enid Ho, YASMIN [address] [place] [phone] Referral ID Status Reason Start Date Expiration Date V isits Requested Visits Authorized [id number] Pending Review 08/03/2023 08/02/2024 1 1 Question Answer Services: Psychiatry/Med Management Reason for Referral - REVIEW REFERENCE LINK BELOW: Short-term consultation & return to PCP/Collaborative Care (CCPS) My Clinical Question Is: severe depression, anxiety, Scheduling Instructions: [employer] [facility] will call you to coordinate your care as prescribed by your provider. If you don't hear from a client account representative within 2 business days, please call . Is this referral for Insurance purposes only? (Only select yes if the patient has already been scheduled at an external location. If yes is selected, the referral will NOT reoute to scheduling). No Comments Please be aware that coverage of these services is subject to the terms and limitations of your health insurance plan. Call member services at your health plan with any benefit or coverage questions. [facility] will call you to coordinate your care as prescribed by your provider. If you don't hear from a client account representative within 2 business days, please call . * Care Coordination (Routine: Next available opening) - Pending Review Specialty Diagnoses / Procedures Referred By Contzhang t Referred To Contact Diagnoses Anxiety state Severe episode of recurrent major depressive disorder, without psychotic features (H) Financial difficulty Ludy Johnson PA-C [address] [place] [address] Referral ID Status Reason Start Date Expiration Date V isits Requested Visits Authorized [id number] Pending Review 08/03/2023 08/02/2024 1 1 Question Answer Reason for Referral: Mental Wellness (Health) (Mental Illness/Chemical Dependency), Financial Support Financial Support: Food, Medication Affordability Mental Wellness: Resources of Behavioral Health Services Clinical Staff have discussed the Care Coordination Referral with the patient and/or caregiver: Yes Comments Reason for Visit * Reason Comments Forms Letter for work - Recheck Medication Medication check for mental health Consult S-(situation): phone call from patient / B-(background): mood disorder, major depressive disorder, anxiety A-(assessment): patient is very tearful talking to RN / Work and life very stressful / Feeling very irritable and angry, crying 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 / Has used up all PTO / has used up all money in 401 K 40 year old son lives with her does not work and his girlfriend who works two jobs but will not help pay any of the bills Encounter Details Date Type Department Care Team (Late st Contact Info) Description 08/03/2023 10:00 AM CDT Virtual Visit [facility] [address] [place] [phone] Ludy Johnson PA-C [id number] [place] [address] Severe episode of recurrent major depressive disorder, without psychotic features (H) (Primary Dx); Hypertension goal BP (blood pressure) < 140/90; Anxiety state; Insomnia, unspecified type; Hyperlipidemia LDL goal <100; Financial difficulty Social History Tobacco Use Types Packs/Day Years [...] Progress Notes * Ludy Johnson PA-C - 08/03/2023 10:00 AM CDT Alana is a 62 year old who is being evaluated via a billable video visit. How would you like to obtain your AVS? MyChart If the video visit is dropped, the invitation should be resent by: Text to cell phone: [phone] Will anyone else be joining your video visit? No Assessment & Plan (F33.2) Severe episode of recurrent major depressive disorder, without psychotic features (H) (primary encounter diagnosis) Comment: will continue current meds. pt is open to Psychiatry consult. PCP will reach out to [facility] for sooner openings for support Referral to [facility] for financial supports as well. May need to take CATHERINE from work. Can fax paperwork Work note given. Plan: desvenlafaxine (PRISTIQ) 100 MG 24 hr tablet, mirtazapine (REMERON) 15 MG tablet, Primary Care - Care Coordination Referral, Adult Mental Health Lot Worker Referral (I10) Hypertension goal BP (blood pressure) < 140/90 Comment: refilled. Stable. Due for follow-up with cardiology Plan: losartan-hydrochlorothiazide (HYZAAR) 100-12.5 MG tablet (F41.1) Anxiety state Comment: will add gabapentin 300 mg BID as well. [facility] reach out done. Consult with psychiatry recommended. Plan: desvenlafaxine (PRISTIQ) 100 MG 24 hr tablet, mirtazapine (REMERON) 15 MG tablet, hydrOXYzine HCl (ATARAX) 25 MG tablet, Primary Care - Care Coordination Referral, Adult Mental Health Lot Worker Referral (G47.00) Insomnia, unspecified type Comment: continue remeron Plan: hydrOXYzine HCl (ATARAX) 25 MG tablet, Adult Mental Health Lot Worker Referral (E78.5) Hyperlipidemia LDL goal <100 Comment: due for cardiology follow-up Plan: simvastatin (ZOCOR) 20 MG tablet (Z59.9) Financial difficulty Comment: CC referral placed. Has depleted 401K and all savings. Plan: Primary Care - Care Coordination Referral Nicotine/Tobacco Cessation She reports that she has been smoking cigarettes. She has a 15 pack-year smoking history. She has never used smokeless tobacco. 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 Patient stated that her symptoms have resulted in the following functionalimpairments: health maintenance and work / vocational responsibilities History of Presenting Concern: Hyperlipidemia Follow-Up Are you regularly taking any medication or supplement to lower your cholesterol? yes Are you having muscle aches or other side effects that you think could be caused by your cholesterol lowering medication? no Hypertension Follow-up Do you check your blood pressure regularly outside of the clinic? No Are you following a low salt diet? No Are your blood pressures ever more than 140 on the top number (systolic) OR more than 90 on the bottom number (diastolic), for example 140/90? No Depression and Anxiety How are you doing with your depression since your last visit? No change How are you doing with your anxiety since your last visit? Worsened Are you having other symptoms that might be associated with depression or anxiety? Yes: insomnia, panic Have you had a significant life event? Job Concerns, Financial Concerns, Housing Concerns, and Transportation Concerns Do you have any concerns with your use of alcohol or other drugs? No Job is very stressful. Has depeleted 401K and has no savings. Social History Tobacco Use Smoking status: Light Smoker Current packs/day: 0.50 Average packs/day: 0.5 packs/day for 30.0 years (15.0 ttl pk-yrs) Types: Cigarettes Smokeless tobacco: Never Tobacco comments: down to 3 or 4 a day Vaping Use Vaping status: Never Used Substance Use Topics Alcohol use: Yes Comment: very rarely Drug use: No 03/12/2022 1:08 PM 08/08/2022 1:16 PM 04/30/2023 4:21 PM PHQ PHQ-9 Total Score 15 13 19 Q9: Thoughts of better off /self-harm past 2 weeks Several days Not at all Several days F/U: Thoughts of suicide or self-harm No No F/U: Safety concerns No No 01/12/2022 1:51 PM 03/12/2022 1:09 PM 04/30/2023 4:23 PM LANDON-7 SCORE Total Score 16 (severe anxiety) 17 (severe anxiety) 14 (moderate anxiety) Total Score 16 17 14 Review of Systems Constitutional, HEENT, cardiovascular, pulmonary, gi and gu systems are negative, except as otherwise noted. Objective Vitals - Patient Reported Weight (Patient Reported): 130.6 kg (288 lb) Height (Patient Reported): 170.2 cm (5' 7) BMI (Based on Pt Reported Ht/Wt): 45.11 Physical Exam GENERAL: alert and no distress EYES: Eyes grossly normal to inspection. No discharge or erythema, or obvious scleral/conjunctival abnormalities. RESP: No audible wheeze, cough, or visible cyanosis. SKIN: Visible skin clear. No significant rash, abnormal pigmentation or lesions. NEURO: Cranial nerves grossly intact. Mentation and speech appropriate for age. PSYCH: tearful, anxious, fatigued, and judgement and insight intact Video-Visit Details Type of service: Video Visit Originating Location (pt. Location): Home Distant Location (provider location): On-site Platform used for Video Visit: Carrie Signed Electronically by: Ludy Johnson PA-C documented in this encounter Plan of Treatment Upcoming Encounters Date Type Department Care Team (Late st Contact Info) Description 11/29/2023 10:30 AM CDT Virtual Visit [facility] Mental Health & Addiction [facility] [address] [place] [address] Kathy Edge LICSW [facility] [address], [address] [place] [address] 11/29/2023 11:00 AM CDT Virtual Visit [facility] Mental Health & Addiction [facility] [address] [place] [address] Enid Ho, [facility] [address] [place] [address] 12/11/2023 2:45 PM CDT Office Visit [facility] Heart [facility] [address] [facility] [address] [place] [phone] Kendrick Lopez MD [address] [place], [place] [address] Scheduled Referrals Name Type Priority Associated Diagnoses Orde r Schedule Primary Care - Care Coordination Referral Referral Routine: Next available opening Anxiety state Severe episode of recurrent major depressive disorder, without psychotic features (H) Financial difficulty Expected: 08/03/2023 (Approximate), Expires: 08/02/2024 Adult Mental Health Lot Worker Referral Referral Priority: 1-2 Weeks Severe episode of recurrent major depressive disorder, without psychotic features (H) Anxiety state Insomnia, unspecified type Expected: 08/03/2023 (Approximate), Expires: 08/02/2024 documented as of this encounter Visit Diagnoses Diagnosis Severe episode of recurrent major depressive disorder, without psychotic features (H)- Primary Hypertension goal BP (blood pressure) < 140/90 Unspecified essential hypertension Anxiety state Anxiety state, unspecified Insomnia, unspecified type Hyperlipidemia LDL goal <100 Other and unspecified hyperlipidemia Financial difficulty Inadequate material resources documented in this encounter Additional Health Concerns Assessment Noted Time PHQ-9 Depression Total Score: 19 024 4:21 PM ATM MECHANIC documented as of this encounter Care Teams Blend Plant Operator Relationship Specialty Start Date End Date Ludy Johnson PA-C [address] [place] [address] PCP - General Physician Route Clerk 10/22/15 Luyd Johnson PA-C [address] [place] [address] Assigned PCP 06/09/18 Sanjana Blair, MIREYA Personal Advocate & Liaison (PAL) Nurse 04/25/23 Xenia Calderon MD [address] [place] [address] Assigned Surgical Provider 05/25/23 08/13/23 Danae Carrero, W Community Health Worker Primary Care - CC 08/03/23 documented as of this encounter
--- OUTSIDE RECORDS SUMMARY | 2023-10-28 00:50 | XMS_ITS | Encounter Summary ---
Author Organization [facility] Address [address] [place] [address] Care Team Providers Care Regulatory Coordinator Name Role Phone Ludy Johnson PA-C Primary Care Provider [phone] Ludy Johnson PA-C Unavailable [phone] Sanjana Blair RN Unavailable Vinita Begum STRIP CLEANER Unavailable [phone] Kathy Edge GUARDIAN FAMILY MEMBER Unavailable [phone] Danae Carrero CHW Unavailable Encounter Details Date Type Department Care Team (Latest Contact Info) Description 08/22/2023 Travel Social History Tobacco Use Types Packs/Day Years [...] in an abandoned building, in an overnight chcf, or couch-surfing.) Yes 04/30/2023 Are you worried [...] 10:30 AM CDT Virtual Visit [facility] Mental Health & Addiction [address] [address] Kathy Edge LICSW [address] [address] 11/29/2023 11:00 AM CDT Virtual Visit [facility] Health & Addiction [address] [phone] Enid Ho, [facility] [address] [place] [address] 12/11/2023 2:45 PM CDT Office Visit [facility] [address] [facility] [address] [place] [phone] Kendrick Lopez MD [address] [place] [phone] documented as of this encounter Goals Goal [...] option. . 3. I will consult with [facility] Line about health insurance options. 4. I will make plan with son and his girlfriend and my expectation for their paying monthly rent and expenses. 5. I will access [employer] RX program for food. documented as of this encounter Visit Diagnoses Not on filedocumented in this encounter Additional Health Concerns Active Problems Noted Date Diagnosed Date Patient expresses financial resource strain 07/23 Assessment Noted Time PHQ-9 Depression Total Score: 7 08/22/19 24 8:46 AM CDT documented as of this encounter Care Teams Regulatory Coordinator Relationship Specialty Start Date End Date Ludy Johnson PA-C [address] [place] [address] PCP - General Physician Finance Officer 10/22/15 Ludy Johnson PA-C [address] [place] [address] Assigned PCP 06/09/18 Sanjana Blair, MIREYA Personal Advocate & Liaison (PAL) Nurse 04/25/23 Vinita Begum LSW Lead Glove Machine Operator Primary Care - CC 08/06/23 Kathy Edge LICSW [address] [place] [address] Assigned Behavioral Health Provider 08/14/23 Danae Carrero, CHW Community Health Worker Primary Care - CC 08/16/23 documented as of this encounter
--- OUTSIDE RECORDS SUMMARY | 2023-10-28 00:50 | XMS_ITS | Encounter Summary ---
Author Organization [facility] Address [address] [place] [address] Care Team Providers Care Director Of Online Education Name Role Phone Ludy Johnson PA-C Primary Care Provider [phone] Ludy Johnson PA-C Unavailable [phone] Sanjana Blair RN Unavailable Xenia Calderon MD Unavailable [phone] Reason for Visit * Reason Onset Date Comments Appointment 07/31/2023 R/S 08/22/2023 lynne COOK arriving 8:40am Encounter Details Date Type Department Care Team (Late st Contact Info) Description 07/31/2023 MyC Medical Advice [address] [address] Rosy Shay MA Appointment (R/S 08/22/2023 with CJ arriving... Social History Tobacco Use Types Packs/Day Years [...] an abandoned building, in an overnight senior care, or couch-surfing.) Yes 04/30/2023 Are you worried [...] encounter Miscellaneous Notes * Telephone Encounter - Yael Freitas MA - 07/31/2023 10:13 AM CDT Appointment scheduled 08/22/2023 with PCP at 9 am. Yael Freitas CMA (AAMA) documented in this encounter Plan of Treatment Upcoming Encounters Date Type Department Care Team (Late st Contact Info) Description 11/29/2023 10:30 AM CDT Virtual Visit [facility] Mental Health & Addiction [facility] [address] [place] [address] Kathy Edge, MATCHER OFFBEARER [facility] - [address] [place] [address] 11/29/2023 11:00 AM CDT Virtual Visit [facility] Mental Health & Addiction [facility] [address] [place] [phone] Enid Ho, DNP [address] [place] [address] 12/11/2023 2:45 PM CDT Office Visit [facility] [address] [facility] [address] [place] [address] Kendrick Lopez MD [address] [place] [address] documented as of this encounter Visit Diagnoses Not on filedocumented in this encounter Additional Health Concerns Assessment Noted Time PHQ-9 Depression Total Score: 19 024 4:21 PM EXCEPTIONAL STUDENT EDUCATION AIDE documented as of this encounter Care Teams Director Of Online Education Relationship Specialty Start Date End Date Ludy Johnson PA-C [address] [place] [address] PCP - General Physician Railcar Switchman 10/22/15 Ludy Johnson PA-C [address] [place] [address] Assigned PCP 06/09/18 Sanjana Blair, MIREYA Personal Advocate & Liaison (PAL) Nurse 04/25/23 Xenia Calderon MD 6 [place] [address] Assigned Surgical Provider 05/25/23 08/13/23 documented as of this encounter
--- OUTSIDE RECORDS SUMMARY | 2023-10-28 00:50 | XMS_ITS | Encounter Summary ---
Author Organization [facility] Address [address] [place] [address]. [place] [address] Care Team Providers Care Air Traffic Control Specialist Name Role Phone Ludy Johnson PA-C Primary Care Provider [phone] Ludy Johnson PA-C Unavailable Sanjana Blair RN Unavailable Xenia Calderon MD Unavailable [phone] Vinita Begum ART GALLERY DIRECTOR Unavailable Kathy Edge BAND SAW RUNNER Unavailable Danae Carrero CHW Unavailable Enid Ho DNP Unavailable Kendrick Lopez MD Unavailable Encounter Details Date Type Department Care Team (Late st Contact Info) Description 08/07/2023 MyC Medical Advice [facility] Mental Health & Addiction [facility] [address] [place] [address] Torie Monroy, BAND SAW RUNNER [id number] [place] [address] Social History Tobacco Use Types Packs/Day [...] Description 11/29/2023 10:30 AM CDT Virtual Visit [facility] Addiction [address] [address] Kathy Edge, BAND SAW RUNNER [facility] [address] [place] [address] 11/29/2023 11:00 AM CDT Virtual Visit [facility] Mental Health & Addiction [facility] [address] [phone] Enid Ho, [facility] [address] [place] [address] 12/11/2023 2:45 PM CDT Office Visit [facility] [address] [facility] [address] [place] [address] Kendrick Lopez MD [address] [place], [place] [phone] documented as of this encounter Visit Diagnoses Not on filedocumented in this encounter Additional Health Concerns Assessment Noted Time PHQ-9 Depression Total Score: 18 024 12:29 PM CDT documented as of this encounter Care Teams Air Traffic Control Specialist Relationship Specialty Start Date End Date Ludy Johnson PA-C [address] [place] [address] PCP - General Physician Meat Team Member 10/22/15 Ludy Johnson PA-C [address] [place] [address] Assigned PCP 06/09/18 Sanjana Blair RN Personal Advocate & Liaison (PAL) Nurse 04/25/23 Xenia Calderon MD [address] [place] [address] 426345 Assigned Surgical Provider 05/25/23 08/13/23 Vinita Begum, ART GALLERY DIRECTOR Lead Carton Packaging Machine Operator Primary Care - CC 08/06/23 Kathy Edge LICSW [address], [address] [place] [address] Assigned Behavioral Health Provider 08/14/23 Danae Carrero, W Community Health Worker Primary Care - CC 08/16/23 Enid Ho DNP [address] [place] [address] Assigned Neuroscience Provider 09/13/23 Kendrick Lopez MD [address] [place] [address] Cardiovascular Disease 09/28/23 documented as of this encounter
--- OUTSIDE RECORDS SUMMARY | 2023-10-28 00:50 | XMS_ITS | Encounter Summary ---
Author Organization [facility] Address [address] [place] [address]. [place] [address] Care Team Providers Care Triage Register Nurse Name Role Phone Ludy Johnson PA-C Primary Care Provider [phone] Ludy Johnson PA-C Unavailable Sanjana Blair RN Unavailable [phone] Vinita Begum STABLE HELPER Unavailable [phone] Kathy Edge HUMAN RESOURCES TECHNICIAN Unavailable Danae Carrero CHW Unavailable Reason for Visit * Reason Onset Date Comments Call Back 08/28/2023 See documentatio n. Encounter Details Date Type Department Care Team (Late st Contact Info) Description 08/28/2023 Telephone [facility] Mental Health & Addiction [facility] [address] [place] [address] Enid Ho, [facility] [address] [place] [address] Call Back (See documentation. ) Social History Tobacco Use Types Packs/Day [...] Telephone Encounter - Aide Ruvalcaba RN - 09/04/2023 1:17 PM CDT RN received notification from client project coordinator in [place] indicating that all information has been faxed to [employer] RN called Juan is housing case manager at [employer] 8-5pm eastern standard time at [phone] to inform him that all the information had been faxed to the number indicated on the paperwork. RN called the patient at [phone] to let her know all of the information had been faxed to the [employer]. Aide Ruvalcaba RN on 09/04/2023 at 1:24 PM * Telephone Encounter - Joanna Shay - 09/03/2023 4:30 PM CDT Jayla called back for a status update on the short term disability paperwork * Telephone Encounter - Nesha Vasques - 08/29/2023 9:01 AM CDT The [employer] forms received. Emailed to chad Valdes in mail drawer. * Telephone Encounter - Aide Ruvalcaba RN - 08/29/2023 8:20 AM CDT Jayla disability paperwork was received into [employer] RN Right Fax pool. RN printed the paperwork to the [place] [employer] and had client project coordinator in [place] email to [facility] Main RN on 08/29/2023 at 8:22 AM * Telephone Encounter - Savannah Fritz - 08/28/2023 2:51 PM CDT Juan is housing case manager 8-5pm [facility] time call [phone] following up on paperwork. Re-gave them the phone numbers to fax to * Telephone Encounter - Alex Mustafa - 08/28/2023 12:56 PM CDT Caller asked to check if we have recived paperwork. Caller asked nurse who stated they will look and call client back if it was not received. * Telephone Encounter - Taniya Lamas RN - 08/28/2023 10:40 AM CDT No record of receiving paperwork from the [employer]. Called and left VM telling patient that we didn't have the paperwork and to call the [employer] and have them refax to [phone]. Paperwork may have gone to [facility] which provider is unable to work from at this time. Taniya Lamas RN on 08/28/2023 at 10:42 AM * Telephone Encounter - Rosio Del Angel - 08/28/2023 10:16 AM CDT Pt called to advise her PCP has her out until the beginning of October. * Telephone Encounter - Leti Joseph - 08/28/2023 10:11 AM CDT 08/28/23: Reason for call: Other Patient called regarding (reason for call): call back Additional comments: Pt stated that she asked provider to complete documentation for short term disability through [employer]. She stated that this has not yet been received and pt is going on 4 weeks without any income-very stressful. She is asking for provider to follow up on this request. [facility] did not see paperwork in chart. Pt provided fax number for [employer], . She was unable to locate a case number or foster care case manager on the documents. Phone number to reach patient: Cell number on file: Telephone Information: Best Time: TIERRA with an update about the request/plan to address the request. Can we leave a detailed message on this number? YES Travel screening: Not Applicable documented in this encounter Plan of Treatment Upcoming Encounters Date Type Department Care Team (Late st Contact Info) Description 11/29/2023 10:30 AM CDT Virtual Visit [facility] Mental Health & Addiction [facility] [address] [place] [address] Kathy Edge LICSW [facility] [address], [address] [place] [address] 11/29/2023 11:00 AM CDT Virtual Visit [facility] & Addiction [place] [facility] [address] [place] [phone] Enid Ho, [facility] [address] [place] [address] 12/11/2023 2:45 PM CDT Office Visit [facility] Heart [facility] [address] [facility] [address] [place] [address] Kendrick Lopez MD [address] [place] [address] documented as of this encounter Goals Goal Patient Goal Type Associated Problems Recent Progress Patient-Stated? Author Create an action plan to increase financial stability Care Plan Patient expresses financial resource strain 10%( 3:26 PM CDT) No Vinita Begum, STABLE HELPER Note: Barriers: Have been supporting my son and his girlfriend who live with me Strengths: Engaged with PCP, mental health support and care coordination Patient expressed understanding of goal: Yes Action steps to achieve this goal: 1. I will make plan to retire as soon as possible. 2. I will contact Social Security Administration to explore my senior living options and to see if SSD is an option. . 3. I will consult with [facility] [place] Line about health insurance options. 4. I [...] documented as of this encounter Care Teams Triage Register Nurse Relationship Specialty Start Date End Date AlexLudy PA-C [address] [place] [address] PCP - General Physician Signal Intelligence Analyst 10/22/15 Ludy Johnson PA-C [address] [place] [address] Assigned PCP 06/09/18 Sanjana Blair, RN Personal Advocate & Liaison (PAL) Nurse 04/25/23 Vinita Begum, STABLE HELPER Lead Senior Living Sales Counselor Primary Care - CC 08/06/23 Kathy Edge LICSW [address], [address] [place], [place] [address] Assigned Behavioral Health Provider 08/14/23 Danae Carrero, W Community Health Worker Primary Care - CC 08/16/23 documented as of this encounter
--- OUTSIDE RECORDS SUMMARY | 2023-10-28 00:50 | XMS_ITS | Encounter Summary ---
Author Organization [facility] Address [address] [place] [address]. [place] [address] Care Team Providers Care Drafter Directional Survey Name Role Phone Ludy Johnson PA-C Primary Care Provider [phone] Ludy Johnson PA-C Unavailable Sanjana Blair RN Unavailable Xenia Calderon MD Unavailable Reason for Visit * Reason Comments Medication Refill Encounter Details Date Type Department Care Team (Late st Contact Info) Description 07/26/[address] [address] Ludy Johnson PA-C [id number] [place] [address] Medication Refill Social History Tobacco Use Types Packs/Day Years [...] encounter Miscellaneous Notes * Telephone Encounter - Rosy Shay MA - 07/31/2023 8:37 AM CDT Contacted patient by Genaro on scheduled appt. Will reach out if scheduling conflicts Scheduled- SunOct 01 at 11:00 AM OFFICE VISIT 30 minutes Arrive by 10:40 CR [facility] Ludy Johnson PA-C Maureen.Jaspal paris * Telephone Encounter - Ludy Johnson PA-C - 07/31/2023 7:23 AM CDT Patient due for follow-up with Ludy Johnson PA-C in 1-2 months for mood * Telephone Encounter - Juanita Gomez PA-C - 07/26/2023 1:46 PM CDT Refills provided. When would you like to see patient again? documented in this encounter Plan of Treatment Upcoming Encounters Date Type Department Care Team (Late st Contact Info) Description 11/29/2023 10:30 AM CDT Virtual Visit [facility] Mental Health & Addiction [address] [place] [address] Kathy Edge LICSW [facility] [address] [place] [address] [address] [place] [address] 11/29/2023 11:00 AM CDT Virtual Visit [facility] [place] [address] [place] [address] Enid Ho, [facility] 500 [place] [address] 12/11/2023 2:45 PM CDT Office Visit [facility] Heart [facility] [address] [facility] [address] [place] [address] Kendrick Lopez MD [address] [place] [phone] documented as of this encounter Visit Diagnoses Diagnosis Anxiety state Anxiety state, unspecified Severe episode of recurrent major depressive disorder, without psychotic features (H) documented in this encounter Additional Health Concerns Assessment Noted Time PHQ-9 Depression Total Score: 19 024 4:21 PM HEAVY EQUIPMENT SALES MANAGER documented as of this encounter Care Teams Drafter Directional Survey Relationship Specialty Start Date End Date Ludy Johnson PA-C [address] [place] [address] PCP - General Physician Learning Disabilities Teacher 10/22/15 Ludy Johnson PA-C [address] [place] [address] Assigned PCP 06/09/18 Sanjana Blair, RN Personal Advocate & Liaison (PAL) Nurse 04/25/23 Xenia Calderon MD [address] [place] [address] Assigned Surgical Provider 05/25/23 08/13/23 documented as of this encounter
--- OUTSIDE RECORDS SUMMARY | 2023-10-28 00:51 | XMS_ITS | Encounter Summary ---
Author Organization [facility] Address [address] [place] [address] Care Team Providers Care Car Wash Supervisor Name Role Phone Ludy Johnson PA-C Primary Care Provider [phone] Ludy Johnson PA-C Unavailable Kendrick Lopez MD Unavailable Nico Gross MD Unavailable Blanco Uribe MD Unavailable Xenia Calderon MD Unavailable [phone] Celi Kahn RN Unavailable Unavailable Sanjana Blair RN Unavailable Xenia Calderon MD Unavailable Danae Carrero CHW Unavailable Vinita Begum GAS AND OIL SERVICER Unavailable Kathy Edge TMH TEACHER Unavailable [phone] Danae Carrero CHW Unavailable Enid Ho DNP Unavailable Kendrick Lopez MD Unavailable [phone] Reason for Visit * Reason Onset Date Comments Refill Request 05/04/2021 isosorbide monon itrate 30 Encounter Details Date Type Department Care Team (Late st Contact Info) Description 05/04/2021 Refill [facility] Heart [facility] [address] [facility] [address] [place] [address] Kendrick Lopez MD [address] [place] [address] Refill Request (isosorbide mononitrate 30) Social History Tobacco Use Types Packs/Day Years Used Date Smoking Tobacco: Every Day Cigarettes 1 30 Smokeless Tobacco: Former Quit: 09/30/2020 Comments:down to 3 or 4 a da y Alcohol Use Standard Drinks/Week Comments Yes 0 (1 standard drink = 0.6 oz pur e alcohol) very rarely PHQ-2 Answer Date Recorded PHQ-2 Score 4 01/06/2021 Sex and Gender Information Value Date Recorded Sex Assigned at Not on file Gender Identity Not on file Sexual Orientation Not on file documented as of this encounter Plan of Treatment Upcoming Encounters Date Type Department Care Team (Late st Contact Info) Description 11/29/2023 10:30 AM CDT Virtual Visit [facility] Mental Health & Addiction [address] [address] Kathy Edge LICSW [address] [address] 11/29/2023 11:00 AM CDT Virtual Visit [facility] Health & Addiction [address] [address] Enid Ho, [facility] 500 [place] [address] 12/11/2023 2:45 PM CDT Office Visit [facility] Heart [facility] [address] [facility] [address] [place] [address] Kendrick Lopez MD [address] [place] [address]644[address] documented as of this encounter Visit Diagnoses Diagnosis Abnormal stress test Other nonspecific abnormal cardiovascular system function study documented in this encounter Additional Health Concerns Infection Onset Date Last Indicated Resolved Time Rule Out COVID-19 06/04/2023 06/04/2023 06/06/2023 12:14 PM ORCHESTRA MUSICIAN COVID-19 06/04/2023 06/04/2023 06/25/2023 11:3 9 PM ORCHESTRA MUSICIAN Assessment Noted Time PHQ-9 Depression Total Score: 11 021 10:46 AM CDT documented as of this encounter Care Teams Car Wash Supervisor Relationship Specialty Start Date End Date Ludy Johnson PA-C [address] [place] [address] PCP - General Physician Electrician Office 10/22/15 Ludy Johnson PA-C [address] [place] [address] Assigned PCP 06/09/18 Kendrick Lopez MD [address] [place] [address] [phone] Assigned Heart and Vascular Provider 12/12/20 06/09/22 Nico Gross MD [address] [place] [address] Assigned Musculoskeletal Provider 06/19/21 05/24/23 [place] [address] [address] Assigned Musculoskeletal Provider 06/05/21 06/18/21 Xenia Calderon MD [address] [place] [address]605 Assigned Surgical Provider 01/28/22 05/16/23 Celi Kahn RN Personal Advocate & Liaison (PAL) Nurse 11/23/22 1/2/24 Sanjana Blair, RN Personal Advocate & Liaison (PAL) Nurse 04/25/23 Xenia Calderon MD [address] [place] [address] 906125 Assigned Surgical Provider 05/25/23 08/13/23 Danae Carrero, [facility] Community Health Worker Primary Care - CC 08/03/23 4 Vinita Begum, [facility] Lead Application Analyst Primary Care - CC 08/06/23 Kathy Edge TMH TEACHER [address], [address] [place] [address] Assigned Behavioral Health Provider 08/14/23 Danae Carrero, [facility] Community Health Worker Primary Care - CC 08/16/23 Enid Ho DNP [address] [place] [address] Assigned Neuroscience Provider 09/13/23 Kendrick Lopez MD [address] [place] [address] [phone] Cardiovascular Disease 09/28/23 documented as of this encounter
--- OUTSIDE RECORDS SUMMARY | 2023-10-28 00:51 | XMS_ITS | Encounter Summary ---
Author Organization [facility] Address [address] [place] [address] Care Team Providers Care Artillery Meteorological Man Name Role Phone Ludy Johnson PA-C Primary Care Provider [phone] Ludy Johnson PA-C Unavailable [phone] Kendrick Lopez MD Unavailable Nico Gross MD Unavailable Xenia Calderon MD Unavailable Celi Kahn RN Unavailable Unavailable Sanjana Blair RN Unavailable [phone] Xenia Calderon MD Unavailable [phone] Danae Carrero CHW Unavailable [phone] Vinita Begum LAND TITLE EXAMINER Unavailable [phone] Kathy Edge RECRUITING INTERNSHIP Unavailable [phone] Danae Carrero CHW Unavailable Enid Ho DNP Unavailable [phone] Kendrick Lopez MD Unavailable [phone] Encounter Details Date Type Department Care Team (Late st Contact Info) Description 04/24/2022 [facility] [address] [address] Celi Kahn, RN Social History Tobacco Use Types Packs/Day Years Used Date Smoking Tobacco: Light Smoker Cigarettes 1 30 Smokeless Tobacco: Never Comments:down to 3 or 4 a da y Alcohol Use Standard Drinks/Week Comments Yes 0 (1 standard drink = 0.6 oz pur e alcohol) very rarely PHQ-2 Answer Date Recorded PHQ-2 Total Score (Adult) - Positive if 3 or more points; Administer PHQ-9 if positive 4 03/12/2022 Sex and Gender Information Value Date Recorded Sex Assigned at Not on file Gender Identity Not on file Sexual Orientation Not on file documented as of this encounter Plan of Treatment Upcoming Encounters Date Type Department Care Team (Late st Contact Info) Description 11/29/2023 10:30 AM CDT Virtual Visit [facility] Health & Addiction [address] [address] Kathy Edge LICSW [address] [place] [address] 11/29/2023 11:00 AM CDT Virtual Visit [facility] Health & Addiction [address] [phone] Enid Ho, [facility] 500 [place], [place] [address] 12/11/2023 2:45 PM CDT Office Visit [facility] Heart [facility] [address] [place] [address] [address] [place] [address] Kendrick Lopez MD [address] [place] [address] documented as of this encounter Visit Diagnoses Not on filedocumented in this encounter Additional Health Concerns Infection Onset Date Last Indicated Resolved Time Rule Out COVID-19 06/04/2023 06/04/2023 06/06/2023 12:14 PM TESTING ANALYST COVID-19 06/04/2023 06/04/2023 06/25/2023 11:3 9 PM TESTING ANALYST Assessment Noted Time PHQ-9 Depression Total Score: 15 022 1:08 PM TESTING ANALYST documented as of this encounter Care Teams Artillery Meteorological Man Relationship Specialty Start Date End Date Ludy Johnson PA-C [address] [place] [address] PCP - General Physician Making Machine Operator 10/22/15 Ludy Johnson PA-C [address] [place] [address] Assigned PCP 06/09/18 Kendrick Lopez MD [address] [place] [address] [phone] Assigned Heart and Vascular Provider 12/12/20 06/09/22 Nico Gross MD [address] [place] [address] 244735 Assigned Musculoskeletal Provider 06/19/21 05/24/23 Xenia Calderon MD [address] [place] [address] 500855 Assigned Surgical Provider 01/28/22 05/16/23 Celi Kahn, MIREYA Personal Advocate & Liaison (PAL) Nurse 03/15/22 04/24/23 Sanjana Blair, MIREYA Personal Advocate & Liaison (PAL) Nurse 04/25/23 Xenia Calderon MD [address] [place] [address]135 Assigned Surgical Provider 05/25/23 08/13/23 Danae Carrero, W Community Health Worker Primary Care - CC 08/03/23 Vinita Begum, [facility] Lead Chestnut Tanner Primary Care - CC 08/06/23 Kathy Edge LICSW [address], [address] [place] [address] Assigned Behavioral Health Provider 08/14/23 Danae Carrero, [facility] Community Health Worker Primary Care - CC 08/16/23 Enid Ho DNP [address] [place] [address] [phone] Assigned Neuroscience Provider 09/13/23 Kendrick Lopez MD [address] [place] [address] 363085 Cardiovascular Disease 09/28/23 documented as of this encounter
--- OUTSIDE RECORDS SUMMARY | 2023-10-28 00:51 | XMS_ITS | Encounter Summary ---
Author Organization [facility] Address [address] [place] [address] Care Team Providers Care Oil Well Engineer Name Role Phone Ludy Johnson PA-C Primary Care Provider [phone] Ludy Johnson PA-C Unavailable Anjana Guallpa RN Unavailable Unavailable Kendrick Lopez MD Unavailable Nico Gross MD Unavailable Blanco Uribe MD Unavailable [phone] Xenia Calderon MD Unavailable Celi Kahn RN Unavailable Unavailable Sanjana Blair RN Unavailable [phone] Xenia Calderon MD Unavailable Danae Carrero CHW Unavailable Vinita Begum LAND MANAGEMENT SUPERVISOR Unavailable Kathy EdgeSW Unavailable Danae Carrero CHW Unavailable [phone] Enid Ho DNP Unavailable Kendrick Lopez MD Unavailable [phone] Reason for Visit * Reason Comments Medication Refill Encounter Details Date Type Department Care Team (Late st Contact Info) Description 12/08/2020 Refill [facility] [address] [place] [address] Ludy Johnson PA-C [address] [place] [address] Medication Refill Social History Tobacco Use Types [...] or more points; Administer PHQ-9 if positive 6 10/13/2020 Sex and Gender Information Value Date Recorded Sex Assigned at Not on file Gender Identity Not on file Sexual Orientation Not on file COVID-19 Exposure Response Date Recorded In the last month, have you been in contact with someone who was confirmed or suspected to have Coronavirus / COVID-19? No / Unsure 12/07/2020 9:46 AM CDT documented as of this encounter Miscellaneous Notes * Telephone Encounter - Aylin Ramirez RN - 12/08/2020 5:14 PM CDT Duplicate. Pt has refills remaining at pharmacy. Denial sent with note to pharmacy requesting they review and fill medication. Aylin Ramirez RN [facility] -- Triage Nurse documented in this encounter Plan of Treatment Upcoming Encounters Date Type Department Care Team (Late st Contact Info) Description 11/29/2023 10:30 AM CDT Virtual Visit [facility] Mental Health & Addiction [address] [place] [address] Kathy Edge LICSW [facility] - [address], [address] [place] [address] 11/29/2023 11:00 AM CDT [facility] Visit [facility] Mental Health [facility] Addiction [facility] [address] [place] [address] Enid Ho, [facility] [address] [place] [address] 12/11/2023 2:45 PM CDT Office Visit [facility] Heart [facility] [address] [facility] [address] [place] [address] Kendrick Lopez MD [address] [place] [address] documented as of this encounter Visit Diagnoses Diagnosis Cubital tunnel syndrome of both upper extremities documented in this encounter Additional Health Concerns Infection Onset Date Last Indicated Resolved Time Rule Out COVID-19 06/04/2023 06/04/2023 06/06/2023 12:14 PM CHIEF DOG LICENSE INSPECTOR COVID-19 06/04/2023 06/04/2023 06/25/2023 11:3 9 PM CHIEF DOG LICENSE INSPECTOR Assessment Noted Time PHQ-9 Depression Total Score: 17 021 7:04 AM CDT documented as of this encounter Care Teams Oil Well Engineer Relationship Specialty Start Date End Date Ludy Johnson PA-C [address] [place] [address] PCP - General Physician Site Manager 10/22/15 Ludy Johnson PA-C [address] [place] [address] Assigned PCP 06/09/18 Anjana Guallpa, MIREYA Personal Advocate & Liaison (PAL) Nurse 07/29/20 04/28/21 Kendrick Lopez MD [address] [place] [address] Assigned Heart and Vascular Provider 12/12/20 06/09/22 Nico Gross MD [address] [place] [address] Assigned Musculoskeletal Provider 06/19/21 05/24/23 [place] [address] [address] Assigned Musculoskeletal Provider 06/05/21 06/18/21 Xenia Calderon MD [address] [place] [address] Assigned Surgical Provider 01/28/22 05/16/23 Celi Kahn, MIREYA Personal Advocate & Liaison (PAL) Nurse 03/15/22 04/24/23 Sanjana Blair RN Personal Advocate & Liaison (PAL) Nurse 04/25/23 Xenia Calderon MD [address] [place] [address] 415355 Assigned Surgical Provider 05/25/23 08/13/23 Danae Carrero, W Community Health Worker Primary Care - CC 08/03/23 Vinita Begum, [facility] Lead Casting Wheel Operator Helper Primary Care - CC 08/06/23 Kathy Edge LICSW [address], [address] [place], [place] [address] Assigned Behavioral Health Provider 08/14/23 Danae Carrero, W Community Health Worker Primary Care - CC 08/16/23 Enid Ho DNP [address] [place] [address] Assigned Neuroscience Provider 09/13/23 Kendrick Lopez MD 6 [place] [address] Cardiovascular Disease 09/28/23 documented as of this encounter
--- OUTSIDE RECORDS SUMMARY | 2023-10-28 00:51 | XMS_ITS | Encounter Summary ---
Author Organization [facility] Address [address] [place] [address] Care Team Providers Care Building Consultant Name Role Phone Ludy Johnson PA-C Primary Care Provider [phone] Ludy Johnson PA-C Unavailable Kendrick Lopez MD Unavailable Nico Gross MD Unavailable Xenia Calderon MD Unavailable [phone] Celi Kahn RN Unavailable Unavailable Sanjana Blair RN Unavailable Xenia Calderon MD Unavailable Danae Carrero CHW Unavailable Vinita Begum PACKAGING CLERK Unavailable [phone] Kathy Egde BLOOM CONVEYOR OPERATOR Unavailable [phone] Danae Carrero CHW Unavailable [phone] Enid Ho DNP Unavailable [phone] Kendrick Lopez MD Unavailable [phone] Encounter Details Date Type Department Care Team ([facility] st Contact Info) Description 06/30/2021 [facility] Mental Health & Addiction [facility] 20 [facility] 210 [place] [address] Evie Angelo LICSW 20 [place] [address] Social History Tobacco Use Types Packs/Day Years [...] have Coronavirus / COVID-19? No / Unsure 06/22/2021 9:50 AM FOLEY ARTIST documented as of this encounter Plan of Treatment Upcoming Encounters Date Type Department Care Team (Late st Contact Info) Description 11/29/2023 10:30 AM CDT Virtual Visit [facility] Mental Health & Addiction [address] [address] [address] 11/29/2023 11:00 AM CDT Virtual Visit [facility] Health & Addiction [address] [address] Enid Ho, [facility] 500 [place] [address] 12/11/2023 2:45 PM CDT Office Visit [facility] Heart [facility] [address] [facility] [address] [place] [phone] Kendrick Lopez MD [address] [place] [address] 206135 documented as of this encounter Visit Diagnoses Not on filedocumented in this encounter Additional Health Concerns Infection Onset Date Last Indicated Resolved Time Rule Out COVID-19 06/04/2023 06/04/2023 06/06/2023 12:14 PM FOLEY ARTIST COVID-19 06/04/2023 06/04/2023 06/25/2023 11:3 9 PM FOLEY ARTIST Assessment Noted Time PHQ-9 Depression Total Score: 11 021 10:46 AM CDT documented as of this encounter Care Teams Building Consultant Relationship Specialty Start Date End Date Ludy Johnson PA-C [address] [place] [address] PCP - General Physician Seasonal Greenery Bundler 10/22/15 Ludy Johnson PA-C [address] [place] [address] Assigned PCP 06/09/18 Kendrick Lopez MD [address] [place] [address] 859195 Assigned Heart and Vascular Provider 12/12/20 06/09/22 Nico Gross MD [address] [place] [address] [phone] Assigned Musculoskeletal Provider 06/19/21 05/24/23 Xenia Calderon MD [address] [place] [address] 579105 Assigned Surgical Provider 01/28/22 05/16/23 Celi Kahn RN Personal Advocate & Liaison (PAL) Nurse 03/15/22 04/24/23 Sanjana Blair RN Personal Advocate & Liaison (PAL) Nurse 04/25/23 Xenia Calderon MD [address] [place] [address] 130905 Assigned Surgical Provider 05/25/23 08/13/23 Danae Carrero, [facility] Community Health Worker Primary Care - CC 08/03/23 4 Vinita Begum, [facility] Lead Horse Show Manager Primary Care - CC 08/06/23 Kathy Edge BLOOM CONVEYOR OPERATOR [facility] [address] [place] [address], [address] [place] [address] Assigned Behavioral Health Provider 08/14/23 Danae Carrero, [facility] Community Health Worker Primary Care - CC 08/16/23 Enid Ho, YAS[facility] [address] [place] [address] Assigned Neuroscience Provider 09/13/23 Kendrick Lopez MD [address] [place] [address] Cardiovascular Disease 09/28/23 documented as of this encounter
--- OUTSIDE RECORDS SUMMARY | 2023-10-28 00:51 | XMS_ITS | Encounter Summary ---
Author Organization [facility] Address [address] [place] [address] Care Team Providers Care Mirror Framer Name Role Phone Ludy Johnson PA-C Primary Care Provider [phone] Ludy Johnson PA-C Unavailable Kendrick Lopez MD Unavailable [phone] Nico Gross MD Unavailable Xenia Calderon MD Unavailable Celi Kahn RN Unavailable Unavailable Sanjana Blair RN Unavailable Xenia Calderon MD Unavailable Danae Carrero CHW Unavailable Vinita Begum PANCAKE PROFESSIONAL Unavailable [phone] Kathy Edge MANAGEMENT INTERN Unavailable [phone] Danae Carrero CHW Unavailable [phone] Enid Ho DNP Unavailable [phone] Kendrick Lopez MD Unavailable [phone] Encounter Details Date Type Department Care Team (Late st Contact Info) Description 11/01/2021 [facility] [address] [facility] [address] [place], [place] 9[address] Nico Gross MD 500 [place] [address] Social History Tobacco Use Types Packs/Day Years [...] Exposure Response Date Recorded In the last 10 days, have yo u been in contact with someone who was confirmed or suspected to have Coronavirus/COVID-19? No / Unsure 11/01/2021 10:53 AM CDT documented as of this encounter Plan of Treatment Upcoming Encounters Date Type Department Care Team (Late st Contact Info) Description 11/29/2023 10:30 AM CDT Virtual Visit [facility] Mental Health & Addiction [address] [address] Kathy Edge LICSW [address] [address] 11/29/2023 11:00 AM CDT Virtual Visit [facility] Health & Addiction [address] [address] Enid Ho DNP [address] [place] [address] 12/11/2023 2:45 PM CDT Office Visit [facility] Heart [facility] [address] [place] [address] [address] [place] [phone] Kendrick Lopez MD [address] [place] [address] documented as of this encounter Visit Diagnoses Not on filedocumented in this encounter Additional Health Concerns Infection Onset Date Last Indicated Resolved Time Rule Out COVID-19 06/04/2023 06/04/2023 06/06/2023 12:14 PM SENIOR BUDGET ANALYST COVID-19 06/04/2023 06/04/2023 06/25/2023 11:3 9 PM SENIOR BUDGET ANALYST Assessment Noted Time PHQ-9 Depression Total Score: 11 021 10:46 AM CDT documented as of this encounter Care Teams Mirror Framer Relationship Specialty Start Date End Date Ludy Johnson PA-C [address] [place] [address] PCP - General Physician Plant Operator/Shift Supervisor 10/22/15 Ludy Johnson PA-C [address] [place] [address] Assigned PCP 06/09/18 Kendrick Lopez MD [address] [place] [address] [phone] Assigned Heart and Vascular Provider 12/12/20 06/09/22 Nico Gross MD [address] [place] [address] 809485 Assigned Musculoskeletal Provider 06/19/21 05/24/23 Xenia Calderon MD [address] [place] [address] 036685 Assigned Surgical Provider 01/28/22 05/16/23 Celi Kahn RN Personal Advocate & Liaison (PAL) Nurse 03/15/22 04/24/23 Sanjana Blair RN Personal Advocate & Liaison (PAL) Nurse 04/25/23 Xenia Calderon MD [address] [place] [address] [phone] Assigned Surgical Provider 05/25/23 08/13/23 Danae Carrero, [facility] Community Health Worker Primary Care - CC 08/03/23 4 Vinita Begum, [facility] Lead Assistant Operator Primary Care - CC 08/06/23 Kathy Edge MANAGEMENT INTERN [facility] [address] [place] [address], [address] [place] [address] Assigned Behavioral Health Provider 08/14/23 Danae Carrero, [facility] Community Health Worker Primary Care - CC 08/16/23 Enid Ho, YASMIN [address] [place] [address] 948875 Assigned Neuroscience Provider 09/13/23 Kendrick Lopez MD [address] [place] [address] 337855 Cardiovascular Disease 09/28/23 documented as of this encounter
--- OUTSIDE RECORDS SUMMARY | 2023-10-28 00:51 | XMS_ITS | Encounter Summary ---
Author Organization [facility] Address [address] [place] [address] Care Team Providers Care Death Clearance Coordinator Name Role Phone Ludy Johnson PA-C Primary Care Provider [phone] Ludy Johnson PA-C Unavailable Kendrick Lopez MD Unavailable Nico Gross MD Unavailable Xenia Calderon MD Unavailable Celi Kahn RN Unavailable Unavailable Sanjana Blair RN Unavailable Xenia Calderon MD Unavailable Danae Carrero CHW Unavailable Vinita Begmu QUARRY PLUG AND FEATHER DRILLER Unavailable [phone] Kathy Edge PIE CHEF Unavailable [phone] Danae Carrero CHW Unavailable Enid Ho DNP Unavailable Kendrick Lopez MD Unavailable Reason for Visit * Reason Onset Date Comments Refill Request 11/04/2021 Med Change Request 11/04/2021 isosorbide Encounter Details Date Type Department Care Team (Late st Contact Info) Description 11/04/2021 [facility] [place] [address] [place] [address] [address] [place] [phone] Kendrick Lopez MD [address] [place] [address] Refill Request; Med Change Request (isosorbide) Social History Tobacco Use Types Packs/Day Years [...] encounter Miscellaneous Notes * Telephone Encounter - Berna Valiente RN - 11/07/2021 2:55 PM CDT Medication Refilled: Isosorbide Last office visit: 12/07/[address] Lopez Last Labs/EKG: NA Next office visit: 11/2022 orders in [facility] sent to: [facility] Juvencio Valiente RN documented in this encounter Plan of Treatment Upcoming Encounters Date Type Department Care Team (Late st Contact Info) Description 11/29/2023 10:30 AM CDT Virtual Visit [facility] Mental Health & Addiction [address] [address] Kathy Edge LICSW [facility] - [address] [place] [address] 11/29/2023 11:00 AM CDT Virtual Visit [facility] Mental Health & Addiction [address] [place] [address] Enid Ho DNP 500 [place] [address] 12/11/2023 2:45 PM CDT Office Visit [facility] Heart [facility] [address] [facility] 140 [place] [address] Kendrick Lopez MD [address] [place] [address] documented as of this encounter Visit Diagnoses Diagnosis Abnormal stress test Other nonspecific abnormal cardiovascular system function study documented in this encounter Additional Health Concerns Infection Onset Date Last Indicated Resolved Time Rule Out COVID-19 06/04/2023 06/04/2023 06/06/2023 12:14 PM PROGRAM DIRECTOR SUBSTANCE ABUSE COVID-19 06/04/2023 06/04/2023 06/25/2023 11:3 9 PM PROGRAM DIRECTOR SUBSTANCE ABUSE Assessment Noted Time PHQ-9 Depression Total Score: 11 021 10:46 AM CDT documented as of this encounter Care Teams Death Clearance Coordinator Relationship Specialty Start Date End Date Ludy Johnson PA-C [address] [place] [address] PCP - General Physician Animal Caregiver 10/22/15 Ludy Johnson PA-C [address] [place] [address] Assigned PCP 06/09/18 Kendrick Lopez MD [address] [place] [address] 910155 Assigned Heart and Vascular Provider 12/12/20 06/09/22 Nico Gross MD 500 [place] [address] Assigned Musculoskeletal Provider 06/19/21 05/24/23 Xenia Calderon MD [address] [place] [address] [phone] Assigned Surgical Provider 01/28/22 05/16/23 Celi Kahn, RN Personal Advocate & Liaison (PAL) Nurse 03/15/22 04/24/23 Sanjaan Blair, MIREYA Personal Advocate & Liaison (PAL) Nurse 04/25/23 Xenia Calderon MD [address] [place] [address] Assigned Surgical Provider 05/25/23 08/13/23 Danae Carrero, [facility] Community Health Worker Primary Care - CC 08/03/23 4 Vinita Begum, [facility] Lead School Bus Driver/Teacher Assistant Primary Care - CC 08/06/23 Kathy Edge LICSW [address], [address] [place], [place] [address] Assigned Behavioral Health Provider 08/14/23 Danae Carrero, [facility] Community Health Worker Primary Care - CC 08/16/23 Enid Ho DNP [address] [place] [address] 365555 Assigned Neuroscience Provider 09/13/23 Kendrick Lopez MD [address] [place] [address] 050355 Cardiovascular Disease 09/28/23 documented as of this encounter
--- OUTSIDE RECORDS SUMMARY | 2023-10-28 00:51 | XMS_ITS | Encounter Summary ---
Author Organization [facility] [place] Address [address] [place] [address] Care Team Providers Care Hostel Manager Name Role Phone Ludy Johnson PA-C Primary Care Provider [phone] Ludy Johnson PA-C Unavailable [phone] Nico Gross MD Unavailable Xenia Calderon MD Unavailable Celi Kahn RN Unavailable Unavailable Sanjana Blair RN Unavailable [phone] Xenia Calderon MD Unavailable Danae Carrero CHW Unavailable Vinita Begum COMMUNICATIONS PROFESSIONAL Unavailable [phone] Kathy Edge SLURRY TANK TENDER Unavailable [phone] Danae Carrero CHW Unavailable [phone] Enid Ho DNP Unavailable [phone] Kendrick Lopez MD Unavailable [phone] Encounter Details Date Type Department Care Team (Late st Contact Info) Description 04/06/2023 [facility] [address] [address] [place] Social History Tobacco Use Types Packs/Day Years Used Date Smoking Tobacco: Light Smoker Cigarettes 1 30 Smokeless Tobacco: Never Comments:down to 3 or 4 a da y Alcohol Use Standard Drinks/Week Comments Yes 0 (1 standard drink = 0.6 oz pur e alcohol) very rarely PHQ-2 Answer Date Recorded PHQ-2 Score 4 08/08/2022 Adolescent Education Answer Date Record ed Getting School Help Needed Not on file 01/16 Sex and Gender Information Value Date Recorded Sex Assigned at Not on file Gender Identity Not on file Sexual Orientation Not on file documented as of this encounter Plan of Treatment Upcoming Encounters Date Type Department Care Team (Late st Contact Info) Description 11/29/2023 10:30 AM CDT Virtual Visit [facility] Mental Health & Addiction [address] [address] Kathy Edge LICSW [address] [address] 11/29/2023 11:00 AM CDT Virtual Visit [facility] Health & Addiction [address] [address] Enid Ho, [facility] 500 [place], [place] [address] 12/11/2023 2:45 PM CDT Office Visit [facility] Heart [facility] [address] [place] [address] [address] [place] [phone] Kendrick Lopez MD [address] [place] [address] documented as of this encounter Visit Diagnoses Not on filedocumented in this encounter Additional Health Concerns Infection Onset Date Last Indicated Resolved Time Rule Out COVID-19 06/04/2023 06/04/2023 06/06/2023 12:14 PM DIRECTOR OF INCOME TAX COVID-19 06/04/2023 06/04/2023 06/25/2023 11:3 9 PM DIRECTOR OF INCOME TAX Assessment Noted Time PHQ-9 Depression Total Score: 13 023 1:18 PM CDT documented as of this encounter Care Teams Hostel Manager Relationship Specialty Start Date End Date Ludy Johnson PA-C [address] [place] [address] PCP - General Physician Turpentine Distiller 10/22/15 Ludy Johnson PA-C [address] [place] [address] Assigned PCP 06/09/18 Nico Gross MD [address] [place] [address] 187115 Assigned Musculoskeletal Provider 06/19/21 05/24/23 Xenia Calderon MD [address] [place] [address] 397015 Assigned Surgical Provider 01/28/22 05/16/23 Celi Kahn, RN Personal Advocate & Liaison (PAL) Nurse 03/15/22 04/24/23 Sanjana Blair, MIREYA Personal Advocate & Liaison (PAL) Nurse 04/25/23 Xenia Calderon MD [address] [place] [address]95 Assigned Surgical Provider 05/25/23 08/13/23 Danae Carrero, [facility] Community Health Worker Primary Care - CC 08/03/23 4 Vinita Begum, COMMUNICATIONS PROFESSIONAL Lead Railway Signalling Engineer Primary Care - CC 08/06/23 Kathy Edge LICSW [address], [address] [place] [address] Assigned Behavioral Health Provider 08/14/23 Danae Carrero, [facility] Community Health Worker Primary Care - CC 08/16/23 Enid Ho DNP [address] [place] [address] Assigned Neuroscience Provider 09/13/23 Kendrick Lopez MD [address] [place] [address] Cardiovascular Disease 09/28/23 documented as of this encounter
--- OUTSIDE RECORDS SUMMARY | 2023-10-28 00:51 | XMS_ITS | Encounter Summary ---
Author Organization [place] Address [address] [place] [address] Care Team Providers Care Audit Machine Operator Name Role Phone Ludy Johnson PA-C Primary Care Provider [phone] Ludy Johnson PA-C Unavailable Kendrick Lopez MD Unavailable Nico Gross MD Unavailable Xenia Calderon MD Unavailable [phone] Celi Kahn RN Unavailable Unavailable Sanjana Blair RN Unavailable Xenia Calderon MD Unavailable Danae Carrero CHW Unavailable [phone] Vinita Begum SECURITY TEST ENGINEER Unavailable [phone] Kathy Edge TOPOLOGY TEACHER Unavailable [phone] Danae Carrero CHW Unavailable [phone] Enid Ho DNP Unavailable [phone] Kendrick Lopez MD Unavailable [phone] Encounter Details Date Type Department Care Team (Late st Contact Info) Description 11/23/2021 Dulce Maria Zuleta [address] [address] Rissa Trujillo Social History Tobacco Use Types Packs/Day Years [...] suspected to have Coronavirus/COVID-19? No / Unsure 11/11/2021 7:00 AM CDT documented as of this encounter Plan of Treatment Upcoming Encounters Date Type Department Care Team ([facility] st Contact Info) Description 11/29/2023 10:30 AM CDT Virtual Visit [facility] Health & Addiction [address] [address] Kathy Edge LICSW [address] [place] [address] 11/29/2023 11:00 AM CDT Virtual Visit [facility] & Addiction [address] [address] Enid Ho, [facility] [address] [place], [place] 6917[address] 12/11/2023 2:45 PM CDT Office Visit [facility] Heart [facility] [address] [facility] [address] [place] [address] Kendrick Lopez MD [address] [place] [address] 968245 documented as of this encounter Visit Diagnoses Not on filedocumented in this encounter Additional Health Concerns Infection Onset Date Last Indicated Resolved Time Rule Out COVID-19 06/04/2023 06/04/2023 06/06/2023 12:14 PM SWITCHBOARD OPERATOR COVID-19 06/04/2023 06/04/2023 06/25/2023 11:3 9 PM SWITCHBOARD OPERATOR Assessment Noted Time PHQ-9 Depression Total Score: 11 01/06/ 021 10:46 AM CDT documented as of this encounter Care Teams Audit Machine Operator Relationship Specialty Start Date End Date Ludy Johnson PA-C [address] [place] [address] PCP - General Physician Fast Food Cashier 10/22/15 Ludy Johnson PA-C [address] [place] [address] Assigned PCP 06/09/18 Kendrick Lopez MD [address] [place] [address] [id number] Assigned Heart and Vascular Provider 12/12/20 06/09/22 Nico Gross MD [address] [place] [address] [phone] Assigned Musculoskeletal Provider 06/19/21 05/24/23 Xenia Calderon MD [address] [place] [address] [id number] Assigned Surgical Provider 01/28/22 05/16/23 Celi Kahn, MIREYA Personal Advocate & Liaison (PAL) Nurse 03/15/22 04/24/23 Sanjana Blair RN Personal Advocate & Liaison (PAL) Nurse 04/25/23 Xenia Calderon MD [address] [place] [address] [phone] Assigned Surgical Provider 05/25/23 08/13/23 Danae Carrero, [facility] Community Health Worker Primary Care - CC 08/03/23 4 Vinita Begum, [facility] Lead Rubber Process Hand Primary Care - CC 08/06/23 Kathy Edge LICSW [address], [address] [place], [place] 78[address] Assigned Behavioral Health Provider 08/14/23 Danae Carrero, [facility] Community Health Worker Primary Care - CC 08/16/23 Enid Ho DNP [address] [place] [address] [phone] Assigned Neuroscience Provider 09/13/23 Kendrick Lopez MD [address] [place] [address] [phone] Cardiovascular Disease 09/28/23 documented as of this encounter
--- OUTSIDE RECORDS SUMMARY | 2023-10-28 00:51 | XMS_ITS | Encounter Summary ---
Author Organization [place] Address [address] [place] [address] Care Team Providers Care Childcare Teacher Name Role Phone Ludy Johnson PA-C Primary Care Provider [phone] Ludy Johnson PA-C Unavailable [phone] Nico Gross MD Unavailable Xenia Calderon MD Unavailable Sanjana Blair RN Unavailable [phone] Xenia Calderon MD Unavailable Danae Carrero CHW Unavailable Vinita Begum PACKAGE DYER Unavailable Kathy EdgeSW Unavailable [phone] Danae Carrero CHW Unavailable Enid Ho DNP Unavailable [phone] Kendrick Lopez MD Unavailable [phone] Encounter Details Date Type Department Care Team (Late st Contact Info) Description 04/26/2023 [facility] Medical Song [address] [address] Sanjana Blair RN Social History Tobacco Use Types Packs/Day [...] in an abandoned building, in an overnight halfway, or couch-surfing.) Yes 04/30/2023 Are you worried [...] Visit [facility] Addiction [address] [place] [address] Kathy Edge, ZULLY [address], [address] [place] [address] 11/29/2023 11:00 AM CDT Virtual Visit [facility] Mental [facility] & Addiction [facility] [address] [place] [phone] Enid Ho, [facility] [address] [place], [place] 294245 12/11/2023 2:45 PM CDT Office Visit [facility] Heart [facility] [address] [facility] [address] [place] [address] Kendrick Lopez MD [address] [place], [place] 718895 documented as of this encounter Visit Diagnoses Not on filedocumented in this encounter Additional Health Concerns Infection Onset Date Last Indicated Resolved Time Rule Out COVID-19 06/04/2023 06/04/2023 06/06/2023 12:14 PM WOOD SCRAP HANDLER COVID-19 06/04/2023 06/04/2023 06/25/2023 11:3 9 PM WOOD SCRAP HANDLER Assessment Noted Time PHQ-9 Depression Total Score: 13 023 1:18 PM CDT documented as of this encounter Care Teams Childcare Teacher Relationship Specialty Start Date End Date Ludy Johnson PA-C [address] [place] [address] PCP - General Physician Superintendent Cemetery 10/22/15 Ludy Johnson PA-C [address] [place] [address] Assigned PCP 06/09/18 Nico Gross MD 500 [place] [address] Assigned Musculoskeletal Provider 06/19/21 2 Xenia Calderon MD [address] [place] [address] Assigned Surgical Provider 01/28/22 05/16/23 Sanjana Blair, RN Personal Advocate & Liaison (PAL) Nurse 04/25/23 Xenia Calderon MD [address] [place] [address] [phone] Assigned Surgical Provider 05/25/23 08/13/23 Danae Carrero, [facility] Community Health Worker Primary Care - CC 08/03/23 4 Vinita Begum, [facility] Lead Voice Teacher Primary Care - CC 08/06/23 Kathy Edge [facility] [address], [address] [place] [address] Assigned Behavioral Health Provider 08/14/23 Danae Carrero, [facility] Community Health Worker Primary Care - CC 08/16/23 Enid Ho DNP [address] [place] [address] [phone] Assigned Neuroscience Provider 09/13/23 Kendrick Lopez MD [address] [place] [address] [phone] Cardiovascular Disease 09/28/23 documented as of this encounter
--- OUTSIDE RECORDS SUMMARY | 2023-10-28 00:51 | XMS_ITS | Encounter Summary ---
Author Organization [place] Address [address] [place] [address] Care Team Providers Care Launderer Hand Name Role Phone Ludy Johnson PA-C Primary Care Provider [phone] Ludy Johnson PA-C Unavailable Anjana Guallpa RN Unavailable Unavailable Kendrick Lopez MD Unavailable Nico Gross MD Unavailable Blanco Uribe MD Unavailable Xenia Calderon MD Unavailable [phone] Celi Kahn RN Unavailable Unavailable Sanjana Blair RN Unavailable [phone] Xenia Calderon MD Unavailable Danae Carrero CHW Unavailable [phone] Vinita Begum TREE TRIMMING LINE TECHNICIAN Unavailable Kathy Edge GARBAGE COLLECTOR DRIVER Unavailable Danae Carrero CHW Unavailable [phone] Enid Ho DNP Unavailable Kendrick Lopez MD Unavailable [phone] Encounter Details Date Type Department Care Team (Latest Contact Info) Description 12/16/2020 Historic Results Social History Tobacco Use Types Packs/Day Years Used Date Smoking Tobacco: Every Day Cigarettes 1 30 Smokeless Tobacco: Former Quit: 09/30/2020 Comments:down to 3 or 4 a da y Alcohol Use Standard Drinks/Week Comments Yes 0 (1 standard drink = 0.6 oz pur e alcohol) very rarely PHQ-2 Answer Date Recorded PHQ-2 Score 6 12/16/2020 Sex and Gender Information Value Date Recorded Sex Assigned at Not on file Gender Identity Not on file Sexual Orientation Not on file COVID-19 Exposure Response Date Recorded In the last month, have you been in contact with someone who was confirmed or suspected to have Coronavirus / COVID-19? No / Unsure 12/15/2020 12:11 PM CDT documented as of this encounter Plan of Treatment Upcoming Encounters Date Type Department Care Team (Late st Contact Info) Description 11/29/2023 10:30 AM CDT Virtual Visit [facility] Mental Health & Addiction [address] [address] Kathy Edge LICSW [address] [address] 11/29/2023 11:00 AM CDT Virtual Visit [facility] & Addiction [address] [address] Enid Ho, [facility] [address] [place] [address] 12/11/2023 2:45 PM CDT Office Visit [facility] Heart [facility] [address] [place] [address] [address] [place] [address] Kendrick Lopez MD [address] [place] [address] documented as of this encounter Visit Diagnoses Not on filedocumented in this encounter Additional Health Concerns Infection Onset Date Last Indicated Resolved Time Rule Out COVID-19 06/04/2023 06/04/2023 06/06/2023 12:14 PM BOOTH OPERATOR COVID06/04/2023 06/04/2023 06/25/2023 11:3 9 PM BOOTH OPERATOR Assessment Noted Time PHQ-9 Depression Total Score: 13 021 11:25 AM CDT documented as of this encounter Care Teams Launderer Hand Relationship Specialty Start Date End Date Ludy Johnson PA-C [address] [place] [address] PCP - General Physician Retirement Consultant 10/22/15 Ludy Johnson PA-C [address] [place] [address] Assigned PCP 06/09/18 Anjana Guallpa RN Personal Advocate & Liaison (PAL) Nurse 07/29/20 04/28/21 Kendrick Lopez MD [address] [place] [address] [phone] Assigned Heart and Vascular Provider 12/12/20 06/09/22 Nico Gross MD [address] [place] [address] 186755 Assigned Musculoskeletal Provider 06/19/21 05/24/23 [place] [address] [phone] Assigned Musculoskeletal Provider 06/05/21 06/18/21 Xenia Calderon MD [address] [place] [address] [phone] Assigned Surgical Provider 01/28/22 05/16/23 Celi Kahn RN Personal Advocate & Liaison (PAL) Nurse 03/15/22 04/24/23 Sanjana Blair RN Personal Advocate & Liaison (PAL) Nurse 04/25/23 Xenia Calderon MD [address] [place] [address] [phone] Assigned Surgical Provider 05/25/23 08/13/23 Danae Carrero, [facility] Community Health Worker Primary Care - CC 08/03/23 4 Vinita Begum, [facility] Lead Rn Hospice Primary Care - CC 08/06/23 Kathy Edge GARBAGE COLLECTOR DRIVER [address], [address] [place] [address] Assigned Behavioral Health Provider 08/14/23 Danae Carrero, [facility] Community Health Worker Primary Care - CC 08/16/23 Enid Ho DNP [address] [place] [address] Assigned Neuroscience Provider 09/13/23 Kendrick Lopez MD [address] [place] [address] 238615 Cardiovascular Disease 09/28/23 documented as of this encounter
--- OUTSIDE RECORDS SUMMARY | 2023-10-28 00:51 | XMS_ITS | Encounter Summary ---
Author Organization [place] Address [address] [place] [address] Care Team Providers Care Resource Management Planner Name Role Phone Ludy Johnson PA-C Primary Care Provider [phone] Ludy Johnson PA-C Unavailable Kendrick Lopez MD Unavailable [phone] Nico Gross MD Unavailable Xenia Calderon MD Unavailable Celi Kahn RN Unavailable Unavailable Sanjana Blair RN Unavailable [phone] Xenia Calderon MD Unavailable Danae Carrero CHW Unavailable Vinita Begum WOOD TYPE FINISHER Unavailable [phone] Kathy Edge LOT BOSS Unavailable [phone] Danae Carrero CHW Unavailable [phone] Enid Ho DNP Unavailable [phone] Kendrick Lopez MD Unavailable [phone] Encounter Details Date Type Department Care Team (Late st Contact Info) Description 01/25/2022 [facility] Orthopedic [facility] [address] [facility] [address] [place], [place] 4694[address] Alexa Benitez, ATC Social History Tobacco Use Types Packs/Day Years Used Date Smoking Tobacco: Light Smoker Cigarettes 1 30 Smokeless Tobacco: Never Comments:down to 3 or 4 a da y Alcohol Use Standard Drinks/Week Comments Yes 0 (1 standard drink = 0.6 oz pur e alcohol) very rarely PHQ-2 Answer Date Recorded PHQ-2 Score 5 01/12/2022 Sex and Gender Information Value Date Recorded Sex Assigned at Not on file Gender Identity Not on file Sexual Orientation Not on file COVID-19 Exposure Response Date Recorded In the last 10 days, have yo u been in contact with someone who was confirmed or suspected to have Coronavirus/COVID-19? No / Unsure 01/25/2022 9:43 AM CDT documented as of this encounter Plan of Treatment Upcoming Encounters Date Type Department Care Team ([facility] st Contact Info) Description 11/29/2023 10:30 AM CDT Virtual Visit [facility] Mental Health & Addiction [address] [address] Kathy Edge, [address] [place] [address] 11/29/2023 11:00 AM CDT Virtual Visit [facility] & Addiction [address] [address] Enid Ho, [facility] [address] [place], [place] 3526[address] 12/11/2023 2:45 PM CDT Office Visit [facility] Heart [facility] [address] [facility] [address] [place] [address] Kendrick Lopez MD [address] [place] [address] [phone] documented as of this encounter Visit Diagnoses Not on filedocumented in this encounter Additional Health Concerns Infection Onset Date Last Indicated Resolved Time Rule Out COVID-19 06/04/2023 06/04/2023 06/06/2023 12:14 PM FRONT OFFICE COORDINATOR COVID-19 06/04/2023 06/04/2023 06/25/2023 11:3 9 PM FRONT OFFICE COORDINATOR Assessment Noted Time PHQ-9 Depression Total Score: 18 022 1:47 PM CDT documented as of this encounter Care Teams Resource Management Planner Relationship Specialty Start Date End Date Ludy Johnson PA-C [address] [place] [address] PCP - General Physician Sales And Marketing Professional 10/22/15 Ludy Johnson PA-C [address] [place] [address] Assigned PCP 06/09/18 Kendrick Lopez MD [address] [place] [address] [phone] Assigned Heart and Vascular Provider 12/12/20 06/09/22 Nico Gross MD [address] [place] [address] 544275 Assigned Musculoskeletal Provider 06/19/21 05/24/23 Xenia Calderon MD [address] [place] [address] 672005 Assigned Surgical Provider 01/28/22 05/16/23 Celi Kahn RN Personal Advocate & Liaison (PAL) Nurse 03/15/22 04/24/23 Sanjana Blair RN Personal Advocate & Liaison (PAL) Nurse 04/25/23 Xenia Calderon MD [address] [place] [address] [phone] Assigned Surgical Provider 05/25/23 08/13/23 Dnaae Carrero, [facility] Community Health Worker Primary Care - CC 08/03/23 Vinita Begum, [facility] Lead Chainstitch Tunnel Elastic Operator Primary Care - CC 08/06/23 Kathy Edge LOT BOSS [address], [address] [place] [address] Assigned Behavioral Health Provider 08/14/23 Danae Carrero, [facility] Community Health Worker Primary Care - CC 08/16/23 Enid Ho DNP [address] [place] [address] 340605 Assigned Neuroscience Provider 09/13/23 Kendrick Lopez MD [address] [place] [address] 288015 Cardiovascular Disease 09/28/23 documented as of this encounter
--- OUTSIDE RECORDS SUMMARY | 2023-10-28 00:51 | XMS_ITS | Encounter Summary ---
Author Organization [place] Address [address] [place] [address] Care Team Providers Care Boom Tender Name Role Phone Ludy Johnson PA-C Primary Care Provider [phone] Ludy Johnson PA-C Unavailable Kendrick Lopez MD Unavailable [phone] Nico Gross MD Unavailable Xenia Calderon MD Unavailable [phone] Celi Kahn RN Unavailable Unavailable Sanjana Blair RN Unavailable Xenia Calderon MD Unavailable Danae Carrero CHW Unavailable Vinita Begum DERRICK FOLLOWER Unavailable [phone] Kathy Edge [employer] Unavailable [phone] Danae Carrero CHW Unavailable En[place] Ho DNP Unavailable [phone] Kendrick Lopez MD Unavailable [phone] Encounter Details Date Type Department Care Team (Late st Contact Info) Description 01/11/2022 [facility] [address] 5[address] [place] [address] Yary Hogan RN Social History Tobacco Use Types Packs/Day [...] suspected to have Coronavirus/COVID-19? No / Unsure 01/12/2022 1:43 PM CDT documented as of this encounter Plan of Treatment Upcoming Encounters Date Type Department Care Team ([facility] st Contact Info) Description 11/29/2023 10:30 AM CDT Virtual Visit [facility] Mental Health & Addiction [address] [address] Kathy Edge LICSW [address] [place] [address] 11/29/2023 11:00 AM CDT Virtual Visit [facility] [address] [address] Enid Ho, [facility] 500 [place], [place] 340355 12/11/2023 2:45 PM CDT Office Visit [facility] Heart [facility] [address] [facility] [address] [place] [address] Kendrick Lopez MD [address] [place] [address] 960495 documented as of this encounter Visit Diagnoses Not on filedocumented in this encounter Additional Health Concerns Infection Onset Date Last Indicated Resolved Time Rule Out COVID-19 06/04/2023 06/04/2023 06/06/2023 12:14 PM PIECER COVID-19 06/04/2023 06/04/2023 06/25/2023 11:3 9 PM PIECER Assessment Noted Time PHQ-9 Depression Total Score: 11 021 10:46 AM CDT documented as of this encounter Care Teams Boom Tender Relationship Specialty Start Date End Date Ludy Johnson PA-C [address] [place] [address] PCP - General Physician Political Organizer 10/22/15 Ludy Johnson PA-C [address] [place] [address] Assigned PCP 06/09/18 Kendrick Lopez MD [address] [place] [address] 484315 Assigned Heart and Vascular Provider 12/12/20 06/09/22 Nico Gross MD [address] [place] [address] 469015 Assigned Musculoskeletal Provider 06/19/21 05/24/23 Xenia Calderon MD [address] [place] [address] [phone] Assigned Surgical Provider 01/28/22 05/16/23 Celi Kahn, MIREYA Personal Advocate & Liaison (PAL) Nurse 03/15/22 04/24/23 Sanjana Blair RN Personal Advocate & Liaison (PAL) Nurse 04/25/23 Xenia Calderon MD [address] [place] [address] 570305 Assigned Surgical Provider 05/25/23 08/13/23 Danae Carrero, [facility] Community Health Worker Primary Care - CC 08/03/23 Vinita Begum, [facility] Lead Pattern Carrier Primary Care - CC 08/06/23 Kathy Edge LICSW [address], [address] [place], [place] 87[address] Assigned Behavioral Health Provider 08/14/23 Danae Carrero, [facility] Community Health Worker Primary Care - CC 08/16/23 Enid Ho DNP [address] [place] [address] [phone] Assigned Neuroscience Provider 09/13/23 Kendrick Lopez MD [address] [place] [address] Cardiovascular Disease 09/28/23 documented as of this encounter
--- OUTSIDE RECORDS SUMMARY | 2023-10-28 00:51 | XMS_ITS | Encounter Summary ---
Author Organization [place] Address [address] [place] [address] Care Team Providers Care Speech Correction Assistant Name Role Phone Ludy Johnson PA-C Primary Care Provider [phone] Ludy Johnson PA-C Unavailable Kendrick Lopez MD Unavailable Nico Gross MD Unavailable Blanco Uribe MD Unavailable Xenia Calderon MD Unavailable Celi Kahn RN Unavailable Unavailable Sanjana Blair RN Unavailable Xenia Calderon MD Unavailable [phone] Danae Carrero CHW Unavailable Vinita Begum ERISA ATTORNEY Unavailable Kathy Edge TANNERY WORKER Unavailable [phone] Danae Carrero CHW Unavailable [place] Ho DNP Unavailable Kendrick Lopez MD Unavailable [phone] Reason for Visit * Reason Onset Date Comments Patient Request 06/03/2021 Encounter Details Date Type Department Care Team (Late st Contact Info) Description 06/03/[address] [facility] [address] [place] [address] Ludy Johnson PA-C [address] [place] [address] Patient Request Social History Tobacco Use Types Packs/Day Years [...] have Coronavirus / COVID-19? No / Unsure 06/02/2021 1:55 PM MELTER OPERATOR documented as of this encounter Miscellaneous Notes * Telephone Encounter - Mirian Bernardo RN - 06/03/2021 11:48 AM MELTER OPERATOR Ludy- see Spark[employer] message below. Please advise. Mirian Bernardo RN ER OPERATOR documented in this encounter Plan of Treatment Upcoming Encounters Date Type Department Care Team (Late st Contact Info) Description 11/29/2023 10:30 AM CDT Virtual Visit [facility] Mental Health & Addiction [address] [address] [facility] [address] [place] [address] 11/29/2023 11:00 AM CDT Virtual Visit [facility] Mental Health & Addiction [facility] [address] [address] Enid Ho, [address] [address] 12/11/2023 2:45 PM CDT Office Visit [facility] [address] [facility] [address] [place] [address] Kendrick Lopez MD [address] [place] [address] documented as of this encounter Visit Diagnoses Diagnosis Cubital tunnel syndrome of both upper extremities documented in this encounter Additional Health Concerns Infection Onset Date Last Indicated Resolved Time Rule Out COVID-19 06/04/2023 06/04/2023 06/06/2023 12:14 PM MELTER OPERATOR COVID-06/04/2023 06/04/2023 06/25/2023 11:3 9 PM MELTER OPERATOR Assessment Noted Time PHQ-9 Depression Total Score: 11 021 10:46 AM CDT documented as of this encounter Care Teams Speech Correction Assistant Relationship Specialty Start Date End Date Ludy Johnson PA-C [address] [place] [address] PCP - General Physician Cruise Consultant 10/22/15 Ludy Johnson PA-C [address] [place] [address] Assigned PCP 06/09/18 Kendrick Lopez MD [address] [place] [address] Assigned Heart and Vascular Provider 12/12/20 06/09/22 Nico Gross MD [address] [place] [address] Assigned Musculoskeletal Provider 06/19/21 05/24/23 Blanco Uribe MD [address] [place] [address] [address] [place] [address] Assigned Musculoskeletal Provider 06/05/21 06/18/21 Xenia Calderon MD [address] [place] [address] 559385 Assigned Surgical Provider 01/28/22 05/16/23 Celi Kahn, MIREYA Personal Advocate & Liaison (PAL) Nurse 03/15/22 04/24/23 Sanjana Blair, MIREYA Personal Advocate & Liaison (PAL) Nurse 04/25/23 Xenia Calderon MD [address] [place] [address] [phone] Assigned Surgical Provider 05/25/23 08/13/23 Danae Carrero, [facility] Community Health Worker Primary Care - CC 08/03/23 Vinita Begum, [facility] Lead Flight Hostess Primary Care - CC 08/06/23 Kathy Edge LICSW [address], [address] [place] [address] Assigned Behavioral Health Provider 08/14/23 Danae Carrero, [facility] Community Health Worker Primary Care - CC 08/16/23 Enid Ho DNP [address] [place] [address] [phone] Assigned Neuroscience Provider 09/13/23 Kendrick Lopez MD [address] [place] [address] [phone] Cardiovascular Disease 09/28/23 documented as of this encounter
--- OUTSIDE RECORDS SUMMARY | 2023-10-28 00:51 | XMS_ITS | Encounter Summary ---
Author Organization [facility] Address [address] [place] [address] Care Team Providers Care Vp Respiratory Name Role Phone Ludy Johnson PA-C Primary Care Provider [phone] Ludy Johnson PA-C Unavailable Anjana Guallpa RN Unavailable Unavailable Kendrick Lopez MD Unavailable Nico Gross MD Unavailable Blanco Uribe MD Unavailable Xenia Calderon MD Unavailable [phone] Celi Kahn RN Unavailable Unavailable Sanjana Blair RN Unavailable [phone] Xenia Calderon MD Unavailable Danae Carrero CHW Unavailable [phone] Vinita Begum PLANETARIUM SKY SHOW TECHNICIAN Unavailable Kathy Edge OFFICER CAPTAIN Unavailable Danae Carrero CHW Unavailable [phone] En[place] Ho DNP Unavailable [phone] Kendrick Lopez MD Unavailable [phone] Encounter Details Date Type Department Care Team (Late st Contact Info) Description 12/16/2020 [facility] Mental Health & Addiction [facility] [address] [place] [address] Torie Monroy, [facility] [address] [place] [address] Social History Tobacco Use Types Packs/Day Years [...] Description 11/29/2023 10:30 AM CDT Virtual Visit [facility] Mental Health & Addiction [address] [address] Kathy Edge, [address] [address] 11/29/2023 11:00 AM CDT Virtual Visit [facility] Health & Addiction [address] [phone] Enid Ho, [facility] [address] [place] [address] 12/11/2023 2:45 PM CDT Office Visit [facility] Heart [facility] [address] [facility] [address] [place] [phone] Kendrick Lopez MD [address] [place] [address] [phone] documented as of this encounter Visit Diagnoses Not on filedocumented in this encounter Additional Health Concerns Infection Onset Date Last Indicated Resolved Time Rule Out COVID-19 06/04/2023 06/04/2023 06/06/2023 12:14 PM SHAREPOINT CONSULTANT COVID-19 06/04/2023 06/04/2023 06/25/2023 11:3 9 PM SHAREPOINT CONSULTANT Assessment Noted Time PHQ-9 Depression Total Score: 13 021 11:25 AM CDT documented as of this encounter Care Teams Vp Respiratory Relationship Specialty Start Date End Date Ludy Johnson PA-C [address] [place] [address] PCP - General Physician Public Policy Analyst 10/22/15 Ludy Johnson PA-C [address] [place] [address] Assigned PCP 06/09/18 Anjana Guallpa, MIREYA Personal Advocate & Liaison (PAL) Nurse 07/29/20 04/28/21 Kendrick Lopez MD [address] [place] [address] 854115 Assigned Heart and Vascular Provider 12/12/20 06/09/22 Nico Gross MD [address] [place] [address] 599195 Assigned Musculoskeletal Provider 06/19/21 05/24/23 [place] [address] [phone] Assigned Musculoskeletal Provider 06/05/21 06/18/21 Xenia Calderon MD [address] [place] [address] 028885 Assigned Surgical Provider 01/28/22 05/16/23 Celi Kahn, RN Personal Advocate & Liaison (PAL) Nurse 03/15/22 04/24/23 Sanjana Blair, MIREYA Personal Advocate & Liaison (PAL) Nurse 04/25/23 Xenia Calderon MD [address] [place] [address] [phone] Assigned Surgical Provider 05/25/23 08/13/23 Danae Carrero, [facility] Community Health Worker Primary Care - CC 08/03/23 4 Vinita Begum, [facility] Lead Dividing Machine Operator Primary Care - CC 08/06/23 Kathy Edge [facility] [address], [address] [place] [address] Assigned Behavioral Health Provider 08/14/23 Danae Carrero, [facility] Community Health Worker Primary Care - CC 08/16/23 Enid Ho DNP [address] [place] [address] 234385 Assigned Neuroscience Provider 09/13/23 Kendrick Lopez MD [address] [place] [address] [phone] Cardiovascular Disease 09/28/23 documented as of this encounter
--- OUTSIDE RECORDS SUMMARY | 2023-10-28 00:51 | XMS_ITS | Encounter Summary ---
Author Organization [place] Address [address] [place] [address] Care Team Providers Care Hearing Aid Fitter Name Role Phone Ludy Johnson PA-C Primary Care Provider [phone] Ludy Johnson PA-C Unavailable [phone] Nico Gross MD Unavailable Xenia Calderon MD Unavailable Celi Kahn RN Unavailable Unavailable Sanjana Blair RN Unavailable [phone] Xenia Calderon MD Unavailable [phone] Danae Carrero CHW Unavailable Vinita Begum AIRCRAFT MACHINIST Unavailable [phone] Kathy Edge [facility] Unavailable [phone] Danae Carrero CHW Unavailable Enid Ho DNP Unavailable [phone] Kendrick Lopez MD Unavailable [phone] Encounter Details Date Type Department Care Team (Late st Contact Info) Description 11/13/2022 [facility] [address] [address] Celi Kahn, RN Social History Tobacco Use Types Packs/Day Years Used Date Smoking Tobacco: Light Smoker Cigarettes 1 30 Smokeless Tobacco: Never Comments:down to 3 or 4 a da y Alcohol Use Standard Drinks/Week Comments Yes 0 (1 standard drink = 0.6 oz pur e alcohol) very rarely PHQ-2 Answer Date Recorded PHQ-2 Score 4 08/08/2022 Sex and Gender Information Value Date Recorded Sex Assigned at Not on file Gender Identity Not on file Sexual Orientation Not on file documented as of this encounter Plan of Treatment Upcoming Encounters Date Type Department Care Team (Late st Contact Info) Description 11/29/2023 10:30 AM CDT Virtual Visit [facility] Mental Health & Addiction [address] [address] Kathy Edge LICSW [facility] [address] [address] 11/29/2023 11:00 AM CDT Virtual Visit [facility] & Addiction [address] [phone] Enid Ho, [facility] [address] [place] [address] 12/11/2023 2:45 PM CDT Office Visit [facility] Heart [facility] [address] [place] [address] [address] [place] [phone] Kendrick Lopez MD [address] [place] [address] 167565 documented as of this encounter Visit Diagnoses Not on filedocumented in this encounter Additional Health Concerns Infection Onset Date Last Indicated Resolved Time Rule Out COVID-19 06/04/2023 06/04/2023 06/06/2023 12:14 PM SPONSORSHIP MANAGER COVID-19 06/04/2023 06/04/2023 06/25/2023 11:3 9 PM SPONSORSHIP MANAGER Assessment Noted Time PHQ-9 Depression Total Score: 13 023 1:18 PM CDT documented as of this encounter Care Teams Hearing Aid Fitter Relationship Specialty Start Date End Date AlexLudy PA-C [address] [place] [address] PCP - General Physician Rides Supervisor 10/22/15 Ludy Johnson PA-C [address] [place] [address] Assigned PCP 06/09/18 Nico Gross MD [address] [place] [address] Assigned Musculoskeletal Provider 06/19/21 05/24/23 Xenia Calderon MD [address] [place] [address] Assigned Surgical Provider 01/28/22 05/16/23 Celi Kahn, RN Personal Advocate & Liaison (PAL) Nurse 03/15/22 04/24/23 Sanjana Blair, MIREYA Personal Advocate & Liaison (PAL) Nurse 04/25/23 Xenia Calderon MD [address] [place] [address] [phone] Assigned Surgical Provider 05/25/23 08/13/23 Danae Carrero, [facility] Community Health Worker Primary Care - CC 08/03/23 4 Vinita Begum, [facility] Lead Nurse Practitioner Hospitalist Primary Care - CC 08/06/23 Kathy Edge LICSW [address], [address] [place] [address] Assigned Behavioral Health Provider 08/14/23 Danae Carrero, [facility] Community Health Worker Primary Care - CC 08/16/23 Enid Ho DNP [address] [place] [address] [phone] Assigned Neuroscience Provider 09/13/23 Kendrick Lopez MD [address] [place] [address] Cardiovascular Disease 09/28/23 documented as of this encounter
--- OUTSIDE RECORDS SUMMARY | 2023-10-28 00:51 | XMS_ITS | Encounter Summary ---
Author Organization [facility] Address [address] [place] [address] Care Team Providers Care Quality Manager Name Role Phone Ludy Johnson PA-C Primary Care Provider [phone] Ludy Johnson PA-C Unavailable Anjana Guallpa RN Unavailable Unavailable Kendrick Lopez MD Unavailable [phone] Nico Gross MD Unavailable [place] Uribe MD Unavailable Xenia Calderon MD Unavailable Celi Kahn RN Unavailable Unavailable Sanjana Blair RN Unavailable [phone] Xenia Calderon MD Unavailable Danae Carrero CHW Unavailable [phone] Vinita Begum TANK TERMINAL GAUGER Unavailable Kathy Edge TERMITE HELPER Unavailable [phone] Danae Carrero CHW Unavailable [phone] En[place] Ho DNP Unavailable Kendrick Lopez MD Unavailable [phone] Encounter Details Date Type Department Care Team (Late st Contact Info) Description 12/30/2020 [facility] Medical Advice [facility] [place] [phone] Kerline Sadler RN Social History Tobacco Use Types Packs/Day [...] have Coronavirus / COVID-19? No / Unsure 12/24/2020 12:34 PM CDT documented as of this encounter Plan of Treatment Upcoming Encounters Date Type Department Care Team (Late st Contact Info) Description 11/29/2023 10:30 AM CDT Virtual Visit [facility] Mental Health & Addiction [address] [address] Kathy Edge TERMITE HELPER [address] [address] 11/29/2023 11:00 AM CDT Virtual Visit [facility] Health & Addiction [address] [phone] Enid Ho, [address] [address] 12/11/2023 2:45 PM CDT Office Visit [facility] Heart [address] [phone] Kendrick Lopez MD [address] [place] [address] documented as of this encounter Visit Diagnoses Not on filedocumented in this encounter Additional Health Concerns Infection Onset Date Last Indicated Resolved Time Rule Out COVID-19 06/04/2023 06/04/2023 06/06/2023 12:14 PM PREPARATION PLANT SUPERVISOR COVID-19 06/04/2023 06/04/2023 06/25/2023 11:3 9 PM PREPARATION PLANT SUPERVISOR Assessment Noted Time PHQ-9 Depression Total Score: 13 021 11:25 AM CDT documented as of this encounter Care Teams Quality Manager Relationship Specialty Start Date End Date Ludy Johnson PA-C [address] [place] [address] PCP - General Physician Job Training Specialist 10/22/15 Lduy Johnson PA-C [address] [place] [address] Assigned PCP 06/09/18 Anjana Guallpa RN Personal Advocate & Liaison (PAL) Nurse 07/29/20 04/28/21 Kendrick Lopez MD [address] [place] [address] 341995 Assigned Heart and Vascular Provider 12/12/20 06/09/22 Nico Gross MD [address] [place] [address] Assigned Musculoskeletal Provider 06/19/21 05/24/23 [place] [address] [address] Assigned Musculoskeletal Provider 06/05/21 06/18/21 Xenia Calderon MD [address] [place] [address] Assigned Surgical Provider 01/28/22 05/16/23 Celi Kahn RN Personal Advocate & Liaison (PAL) Nurse 03/15/22 04/24/23 Sanjana Blair, MIREYA Personal Advocate & Liaison (PAL) Nurse 04/25/23 Xenia Calderon MD [address] [place] [address] 846685 Assigned Surgical Provider 05/25/23 08/13/23 Danae Carrero, [facility] Community Health Worker Primary Care - CC 08/03/23 4 Vinita Begum, [facility] Lead Hospital Housekeeper Primary Care - CC 08/06/23 Kathy Edge TERMITE HELPER [address], [address] [place] [address] Assigned Behavioral Health Provider 08/14/23 Danae Carrero, [facility] Community Health Worker Primary Care - CC 08/16/23 Enid Ho DNP [address] [place] [address] 072475 Assigned Neuroscience Provider 09/13/23 Kendrick Lopez MD [address] [place] [address] [phone] Cardiovascular Disease 09/28/23 documented as of this encounter
--- OUTSIDE RECORDS SUMMARY | 2023-10-28 00:51 | XMS_ITS | Encounter Summary ---
Author Organization [facility] Address [address] [place] [address] Care Team Providers Care Family Development Extension Specialist Name Role Phone Ludy Johnson PA-C Primary Care Provider [phone] Ludy Johnson PA-C Unavailable Anjana Guallpa RN Unavailable Unavailable Kendrick Lopez MD Unavailable [phone] Nico Gross MD Unavailable [place] Uribe MD Unavailable Xenia Calderon MD Unavailable [phone] Celi Kahn RN Unavailable Unavailable Sanjana Blair RN Unavailable Xenia Calderon MD Unavailable Danae Carrero CHW Unavailable Vinita Begum HARD TILE SETTER Unavailable Kathy Edge GREEN HOUSE MANAGER Unavailable Danae Carrero CHW Unavailable [phone] En[place] Ho DNP Unavailable Kendrick Lopez MD Unavailable [phone] Encounter Details Date Type Department Care Team (Late st Contact Info) Description 11/18/2020 [facility] [address] [place] [phone] Melany Lagunas Social History Tobacco Use Types Packs/Day Years Used Date Smoking Tobacco: Former Cigarettes 30 Smokeless Tobacco: Former Quit: 09/30/2020 Comments:1/2 -3/4 pk every d ay 30 yrs Alcohol Use Standard Drinks/Week Comments Yes 0 [...] have Coronavirus / COVID-19? No / Unsure 10/28/2020 4:13 PM CDT documented as of this encounter Plan of Treatment Upcoming Encounters Date Type Department Care Team (Late st Contact Info) Description 11/29/2023 10:30 AM CDT Virtual Visit [facility] Mental Health & Addiction [address] [address] Kathy Edge LICSW [address] [address] 11/29/2023 11:00 AM CDT Virtual Visit [facility] Health & Addiction [address] [address] Enid Ho, [facility] [address] [place], [place] 255[address] 12/11/2023 2:45 PM CDT Office Visit [facility] Heart [facility] [address] [facility] [address] [place] [phone] Kendrick Lopez MD [address] [place] [address] [phone] documented as of this encounter Visit Diagnoses Not on filedocumented in this encounter Additional Health Concerns Infection Onset Date Last Indicated Resolved Time Rule Out COVID-19 06/04/2023 06/04/2023 06/06/2023 12:14 PM MUD TRUCKER COVID-19 06/04/2023 06/04/2023 06/25/2023 11:3 9 PM MUD TRUCKER Assessment Noted Time PHQ-9 Depression Total Score: 17 10/14/ 021 7:04 AM CDT documented as of this encounter Care Teams Family Development Extension Specialist Relationship Specialty Start Date End Date Ludy Johnson PA-C [address] [place] [address] PCP - General Physician E Marketing Specialist 10/22/15 Ludy Johnson PA-C [address] [place] [address] Assigned PCP 06/09/18 Anjana Guallpa RN Personal Advocate & Liaison (PAL) Nurse 07/29/20 04/28/21 Kendrick Lopez MD [address] [place] [address] [phone] Assigned Heart and Vascular Provider 12/12/20 06/09/22 Nico Gross MD [address] [place] [address] Assigned Musculoskeletal Provider 06/19/21 05/24/23 [place] [address] [phone] Assigned Musculoskeletal Provider 06/05/21 06/18/21 Xenia Calderon MD [address] [place] [address] [phone] Assigned Surgical Provider 01/28/22 05/16/23 Celi Kahn, RN Personal Advocate & Liaison (PAL) Nurse 03/15/22 04/24/23 Sanjana Blair, MIREYA Personal Advocate & Liaison (PAL) Nurse 04/25/23 Xenia Calderon MD [address] [place] [address] Assigned Surgical Provider 05/25/23 08/13/23 Danae Carrero, [facility] Community Health Worker Primary Care - CC 08/03/23 Vinita Begum, [facility] Lead Feed Mixer Helper Primary Care - CC 08/06/23 Kathy Edge [facility] [address], [address] [place], [place] 6[address] Assigned Behavioral Health Provider 08/14/23 Danae Carrero, [facility] Community Health Worker Primary Care - CC 08/16/23 Enid Ho DNP [address] [place] [address] 075625 Assigned Neuroscience Provider 09/13/23 Kendrick Lopez MD [address] [place] [address] 820475 Cardiovascular Disease 09/28/23 documented as of this encounter
--- OUTSIDE RECORDS SUMMARY | 2023-10-28 00:51 | XMS_ITS | Encounter Summary ---
Author Organization [facility] Address [address] [place] [address] Care Team Providers Care Medical Staff Manager Name Role Phone Ludy Johnson PA-C Primary Care Provider [phone] Ludy Johnson PA-C Unavailable Kendrick Lopez MD Unavailable [phone] Nico Gross MD Unavailable Xenia Calderon MD Unavailable Celi Kahn RN Unavailable Unavailable Sanjana Blair RN Unavailable [phone] Xenia Calderon MD Unavailable [phone] Danae Carrero CHW Unavailable [phone] Vinita Begum LITHODUPLICATOR OPERATOR Unavailable [phone] Kathy Edge BULK SYSTEM OPERATOR Unavailable [phone] Danae Carrero CHW Unavailable En[place] Ho DNP Unavailable [phone] Kendrick Lopez MD Unavailable [phone] Encounter Details Date Type Department Care Team (Late st Contact Info) Description 03/29/2022 [facility] [address] [address] Celi Kahn, RN Social History Tobacco Use [...] Description 11/29/2023 10:30 AM CDT Virtual Visit [facility] Health & Addiction [address] [address] Kathy Edge LICSW [address] [place] [address] 11/29/2023 11:00 AM CDT Virtual Visit [facility] Health & Addiction [address] [phone] Enid Ho, [facility] [address] [place], [place] 9247[address] 12/11/2023 2:45 PM CDT Office Visit [facility] Heart [facility] [address] [place] [address] [address] [place] [address] Kendrick Lopez MD [address] [place] [address] 087275 documented as of this encounter Visit Diagnoses Not on filedocumented in this encounter Additional Health Concerns Infection Onset Date Last Indicated Resolved Time Rule Out COVID-19 06/04/2023 06/04/2023 06/06/2023 12:14 PM CUPROUS CHLORIDE HELPER COVID-19 06/04/2023 06/04/2023 06/25/2023 11:3 9 PM CUPROUS CHLORIDE HELPER Assessment Noted Time PHQ-9 Depression Total Score: 15 022 1:08 PM CUPROUS CHLORIDE HELPER documented as of this encounter Care Teams Medical Staff Manager Relationship Specialty Start Date End Date Ludy Johnson PA-C [address] [place] [address] PCP - General Physician Release Of Information Specialist 10/22/15 Ludy Johnson PA-C [address] [place] [address] Assigned PCP 06/09/18 Kendrick Lopez MD [address] [place] [address] 555245 Assigned Heart and Vascular Provider 12/12/20 06/09/22 Nico Gross MD [address] [place] [address] 705125 Assigned Musculoskeletal Provider 06/19/21 05/24/23 Xenia Calderon MD [address] [place] [address] [phone] Assigned Surgical Provider 01/28/22 05/16/23 Celi Kahn, MIREYA Personal Advocate & Liaison (PAL) Nurse 03/15/22 04/24/23 Sanjana Blair, MIREYA Personal Advocate & Liaison (PAL) Nurse 04/25/23 Xenia Calderon MD [address] [place] [address] 690345 Assigned Surgical Provider 05/25/23 08/13/23 Danae Carrero, W Community Health Worker Primary Care - CC 08/03/23 Vinita Begum, [facility] Lead Body Straightener Primary Care - CC 08/06/23 Kathy Edge LICSW [address], [address] [place] [address] Assigned Behavioral Health Provider 08/14/23 Danae Carrero, [facility] Community Health Worker Primary Care - CC 08/16/23 Enid Ho DNP [address] [place] [address] 138345 Assigned Neuroscience Provider 09/13/23 Kendrick Lopez MD [address] [place] [address] 425175 Cardiovascular Disease 09/28/23 documented as of this encounter
--- OUTSIDE RECORDS SUMMARY | 2023-10-28 00:52 | XMS_ITS | Encounter Summary ---
Author Organization [place] Address [address] [place] [address]15 Care Team Providers Care Technical Solutions Director Name Role Phone Ludy Johnson PA-C Primary Care Provider [phone] Rodrigo Hoyos RN Unavailable [phone] Samuel Phan PA-C Unavailable Ludy Johnson PA-C Unavailable Samuel Phan-C Unavailable Ludy Johnson-C Unavailable Anjaan Guallpa RN Unavailable Unavailable Kendrick Lopez MD Unavailable Nico Gross MD Unavailable Blanco Uribe MD Unavailable Xenia Calderon MD Unavailable Celi Kahn RN Unavailable Unavailable Sanjana Blair RN Unavailable Xenia Calderon MD Unavailable [phone] Danae Carrero CHW Unavailable Vinita BegumW Unavailable Kathy Edge Unavailable [phone] Danae Carrero CHW Unavailable [place] oH DNP Unavailable + [phone] Kendrick Lopez MD Unavailable + [phone] Reason for Visit * Reason Comments Medication Refill FLUTICASONE PROP 50 MCG SPRAY and Furosemide Encounter Details Date Type Department Care Team (Late st Contact Info) Description 11/19/2016 Refill [facility] [address] [place] [phone] Ludy Johnson PA-C [address] [place], [place] [phone] Medication Refill (FLUTICASONE PROP 50 MCG SPRAY and Furosemide) Social History Tobacco Use Types Packs/Day Years Used Date Smoking Tobacco: Every Day Cigarettes 0.5 30 Smokeless Tobacco: Never Comments:1/2 -3/4 pk every d ay 30 yrs Alcohol Use Standard Drinks/Week Comments Yes 0 (1 standard drink = 0.6 oz pur e alcohol) very rarely Sex and Gender Information Value Date Recorded Sex Assigned at Not on file Gender Identity Not on file Sexual Orientation Not on file documented as of this encounter Miscellaneous Notes * Telephone Encounter - Sheryl Don RN - 11/21/2016 3:52 PM CDT Unable to mail letter as no address on file. I LMOM for patient to call clinic to schedule appt. With PCP Sheryl Don RN * Telephone Encounter - Sheryl Don RN - 11/21/2016 3:31 PM CDT Potassium Date Value Ref Range Status 11/06/2015 4.2 3.4 - 5.3 mmol/L Final Creatinine Date Value Ref Range Status 11/06/2015 0.64 0.52 - 1.04 mg/dL Final BP Readings from Last 3 Encounters: 12/09/15 139/82 11/06/15 138/82 07/22/15 130/84 Prescription approved per [facility] Refill Protocol x 1 for both meds--above labs due and depression f/u due in October, per telephone visit note dated 05/10/16/Letter sent Sheryl Don RN * Telephone Encounter - SarabjitAshen - 11/20/2016 11:53 AM CDT SERTRALINE HCL 100MG TABS Last Written Prescription Date: 05-10-2016 Last Fill Quantity: 08-14-2016, # 90 refills: 1 Last Office Visit with [facility] primary care provider: 01-27-2016 Ludy Johnson. Last PHQ-9 score on record= PHQ-9 SCORE 09/14/2016 Total Score - Total Score 9 FUROSEMIDE 20MG TABS Last Written Prescription Date: 10-25-2016 Last Fill Quantity: 10-25-2016, # 60refills: 0 Last Office Visit with [facility], [facility] or [facility] prescribing provider: 01-27-2016 Ludy Johnson. documented in this encounter Plan of Treatment Upcoming Encounters Date Type Department Care Team (Late st Contact Info) Description 11/29/2023 10:30 AM CDT Virtual Visit [facility] Mental Health & Addiction [address] [address] Kathy Edge LICSW [address] [address] 11/29/2023 11:00 AM CDT Virtual Visit [facility] Mental Health & Addiction [address] [address] Enid Ho, [facility] [address] [place], [place] [address] 12/11/2023 2:45 PM CDT Office Visit [facility] Heart [facility] [address] [facility] [address] [place] [phone] Kendrick Lopez MD [address] [place] [address] documented as of this encounter Visit Diagnoses Diagnosis Anxiety state Anxiety state, unspecified Fluid retention Other fluid overload documented in this encounter Additional Health Concerns Infection Onset Date Last Indicated Resolved Time Rule Out COVID-19 06/04/2023 06/04/2023 06/06/2023 12:14 PM PARTNER MARKETING INTERN COVID-19 06/04/2023 06/04/2023 06/25/2023 11:3 9 PM PARTNER MARKETING INTERN Assessment Noted Time PHQ-9 Depression Total Score: 9 09/16/19 17 7:29 AM CDT documented as of this encounter Care Teams Technical Solutions Director Relationship Specialty Start Date End Date Ludy Johnson PA-C [address] [place] [address] PCP - General Physician Curriculum Assistant Principal 10/22/15 Samuel Phan PA-C [address] [place] [address] PCP - Assigned PCP 01/27/18 06/08/18 Ludy Johnson PA-C [address] [place] [address] PCP - Assigned PCP 06/09/18 06/25/18 Rodrigo Hoyos RN Clinic Pharmacognosist Primary Care - CC 12/12/17 9 Samuel Phan PA-C [address] [place] [address] Assigned PCP 01/27/18 06/08/18 Ludy Johnson PA-C [address] [place] [address] Assigned PCP 06/09/18 Anjana Guallpa, MIREYA Personal Advocate & Liaison (PAL) Nurse 07/29/20 04/28/21 Kendrick Lopez MD [address] [place] [address] [phone] Assigned Heart and Vascular Provider 12/12/20 06/09/22 Nico Gross MD [address] [place] [address] [phone] Assigned Musculoskeletal Provider 06/19/21 05/24/23 [place] [address] [address] Assigned Musculoskeletal Provider 06/05/21 06/18/21 Xenia Calderon MD [address] [place] [address] [phone] Assigned Surgical Provider 01/28/22 05/16/23 Celi Kahn, MIREYA Personal Advocate & Liaison (PAL) Nurse 03/15/22 04/24/23 Sanjana Blair, MIREYA Personal Advocate & Liaison (PAL) Nurse 04/25/23 Xenia Calderon MD [address] [place] [address] 272015 Assigned Surgical Provider 05/25/23 08/13/23 Danae Carrero, W Community Health Worker Primary Care - CC 08/03/23 4 Vinita Begum, DRESS DESIGNER Lead Pharmacognosist Primary Care - CC 08/06/23 Kathy Edge SHADE CLASSIFIER [facility] [address], [address] [place] [address] Assigned Behavioral Health Provider 08/14/23 Danae Carrero, [facility] Community Health Worker Primary Care - CC 08/16/23 Enid Ho DNP [address] [place] [address] [phone] Assigned Neuroscience Provider 09/13/23 Kendrick Lopez MD [address] [place] [address] 164835 Cardiovascular Disease 09/28/23 documented as of this encounter
--- OUTSIDE RECORDS SUMMARY | 2023-10-28 00:52 | XMS_ITS | Encounter Summary ---
Author Organization [place] Address [address] [place] [address] Care Team Providers Care Rehabilitation Consultant Name Role Phone Ludy Johnson PA-C Primary Care Provider [phone] Ludy Johnson PA-C Unavailable [phone] Anjana Guallpa RN Unavailable Unavailable Kendrick Lopez MD Unavailable [phone] Nico Gross MD Unavailable Blanco Uribe MD Unavailable Xenia Calderon MD Unavailable Celi Kahn RN Unavailable Unavailable Sanjana Blair RN Unavailable Xenia Calderon MD Unavailable Danae Carrero CHW Unavailable Vinita Begum PRESS SMITH HELPER Unavailable Kathy Edge GOLF BALL COVER TREATER Unavailable [phone] Danae Carrero CHW Unavailable [phone] Enid Ho DNP Unavailable Kendrick Lopez MD Unavailable [phone] Encounter Details Date Type Department Care Team (Late st Contact Info) Description 10/01/2020 [facility] [place] [address] [place] [phone] Anjana Guallpa RN Social History Tobacco Use Types Packs/Day Years Used Date Smoking Tobacco: Every Day Cigarettes 1 30 Smokeless Tobacco: Never Comments:1/2 -3/4 pk every d ay 30 yrs Alcohol Use Standard Drinks/Week Comments Yes 0 (1 standard drink = 0.6 oz pur e alcohol) very rarely PHQ-2 Answer Date Recorded PHQ-2 Score 6 08/28/2019 Sex and Gender Information Value Date Recorded Sex Assigned at Not on file Gender Identity Not on file Sexual Orientation Not on file COVID-19 Exposure Response Date Recorded In the last month, have you been in contact with someone who was confirmed or suspected to have Coronavirus / COVID-19? No / Unsure 10/01/2020 11:05 AM CDT documented as of this encounter Plan of Treatment Upcoming Encounters Date Type Department Care Team (Late st Contact Info) Description 11/29/2023 10:30 AM CDT Virtual Visit [facility] Mental Health & Addiction [address] [address] Kathy Edge GOLF BALL COVER TREATER [address] [address] 11/29/2023 11:00 AM CDT Virtual Visit [facility] Health & Addiction [address] [address] Enid Ho, [facility] 500 [place], [place] [address] 12/11/2023 2:45 PM CDT Office Visit [facility] Heart [facility] [address] [facility] [address] [place] [phone] Kendrick Lopez MD [address] [place] [address] 490045 documented as of this encounter Visit Diagnoses Not on filedocumented in this encounter Additional Health Concerns Infection Onset Date Last Indicated Resolved Time Rule Out COVID-19 06/04/2023 06/04/2023 06/06/2023 12:14 PM JEWELRY INSPECTOR COVID-19 06/04/2023 06/04/2023 06/25/2023 11:3 9 PM JEWELRY INSPECTOR Assessment Noted Time PHQ-9 Depression Total Score: 19 021 7:03 AM CDT documented as of this encounter Care Teams Rehabilitation Consultant Relationship Specialty Start Date End Date Ludy Johnson PA-C [address] [place] [address] PCP - General Physician Filer Metal Patterns 10/22/15 Ludy Johnson PA-C [address] [place] [address] Assigned PCP 06/09/18 Anjana Guallpa RN Personal Advocate & Liaison (PAL) Nurse 07/29/20 04/28/21 Kendrick Lopez MD [address] [place] [address] Assigned Heart and Vascular Provider 12/12/20 06/09/22 Nico Gross MD [address] [place] [address] Assigned Musculoskeletal Provider 06/19/21 05/24/23 [place] [address] [address] Assigned Musculoskeletal Provider 06/05/21 06/18/21 Xenia Calderon MD [address] [place] [address] Assigned Surgical Provider 01/28/22 05/16/23 Celi Kahn RN Personal Advocate & Liaison (PAL) Nurse 11/23/22 1/2/24 Sanjana Blair, RN Personal Advocate & Liaison (PAL) Nurse 04/25/23 Xenia Calderon MD [address] [place] [address] [phone] Assigned Surgical Provider 05/25/23 08/13/23 Danae Carrero, [facility] Community Health Worker Primary Care - CC 08/03/23 4 Vinita Begum, [facility] Lead Computer Networker Primary Care - CC 08/06/23 Kathy Edge GOLF BALL COVER TREATER [address], [address] [place] [address] Assigned Behavioral Health Provider 08/14/23 Danae Carrero, [facility] Community Health Worker Primary Care - CC 08/16/23 Enid Ho DNP [address] [place] [address] [phone] Assigned Neuroscience Provider 09/13/23 Kendrick Lopez MD [address] [place] [address] 067375 Cardiovascular Disease 09/28/23 documented as of this encounter
--- OUTSIDE RECORDS SUMMARY | 2023-10-28 00:52 | XMS_ITS | Encounter Summary ---
Author Organization [place] Address [address] [place] [address] Care Team Providers Care Receiver Stocker Name Role Phone Ludy Johnson PA-C Primary Care Provider [phone] Ludy Johnson PA-C Unavailable Anjana Guallpa RN Unavailable Unavailable Kendrick Lopez MD Unavailable [phone] Nico Gross MD Unavailable Blanco Uribe MD Unavailable Xenia Calderon MD Unavailable Celi Kahn RN Unavailable Unavailable Sanjana Blair RN Unavailable [phone] Xenia Calderon MD Unavailable Danae Carrero CHW Unavailable Vinita Begum PREPARER MAKING DEPARTMENT Unavailable [phone] Kathy Edge NETWORK OPERATIONS ANALYST Unavailable Danae Carrero CHW Unavailable [phone] En[place] Ho DNP Unavailable Kendrick Lopez MD Unavailable [phone] Encounter Details Date Type Department Care Team (Late st Contact Info) Description 10/04/2020 [facility] [place] [address] [place] [address] Ludy Johnson PA-C [address] [place] [address] Social History Tobacco Use Types Packs/Day Years [...] have Coronavirus / COVID-19? No / Unsure 10/07/2020 9:51 AM CDT documented as of this encounter Plan of Treatment Upcoming Encounters Date Type Department Care Team (Late st Contact Info) Description 11/29/2023 10:30 AM CDT Virtual Visit [facility] Mental Health & Addiction [address] [address] Kathy Edge LICSW [address] [address] 11/29/2023 11:00 AM CDT Virtual Visit [facility] Health & Addiction [address] [address] Enid Ho, [facility] 500 [place], [place] [address] 12/11/2023 2:45 PM CDT Office Visit [facility] Heart [facility] [address] [place] [address] [address] [place] [phone] Kendrick Lopez MD [address] [place] [address] 460745 documented as of this encounter Visit Diagnoses Not on filedocumented in this encounter Additional Health Concerns Infection Onset Date Last Indicated Resolved Time Rule Out COVID-19 06/04/2023 06/04/2023 06/06/2023 12:14 PM COIN MACHINE OPERATOR COVID-19 06/04/2023 06/04/2023 06/25/2023 11:3 9 PM COIN MACHINE OPERATOR Assessment Noted Time PHQ-9 Depression Total Score: 021 7:03 AM CDT documented as of this encounter Care Teams Receiver Stocker Relationship Specialty Start Date End Date Ludy Johnson PA-C [address] [place] [address] PCP - General Physician Primary Products Inspectors 10/22/15 Ludy Johnson PA-C [address] [place] [address] Assigned PCP 06/09/18 Anjana Guallpa RN Personal Advocate & Liaison (PAL) Nurse 07/29/20 04/28/21 Kendrick Lopez MD [address] [place] [address] [phone] Assigned Heart and Vascular Provider 12/12/20 06/09/22 Nico Gross MD [address] [place] [address] [phone] Assigned Musculoskeletal Provider 06/19/21 05/24/23 [place] [address] 142637 Assigned Musculoskeletal Provider 06/05/21 06/18/21 Xenia Calderon MD [address] [place] [address] [phone] Assigned Surgical Provider 01/28/22 05/16/23 Celi Kahn, RN Personal Advocate & Liaison (PAL) Nurse 03/15/22 04/24/23 Sanjana Blair, MIREYA Personal Advocate & Liaison (PAL) Nurse 04/25/23 Xenia Calderon MD [address] [place] [address] Assigned Surgical Provider 05/25/23 08/13/23 Danae Carrero, [facility] Community Health Worker Primary Care - CC 08/03/23 4 Vinita Begum, [facility] Lead Financial Advocate Primary Care - CC 08/06/23 Kathy Edge NETWORK OPERATIONS ANALYST [address], [address] [place] [address] Assigned Behavioral Health Provider 08/14/23 Danae Carrero, [facility] Community Health Worker Primary Care - CC 08/16/23 Enid Ho DNP [address] [place] [address] [phone] Assigned Neuroscience Provider 09/13/23 Kendrick Lopez MD [address] [place] [address] 355305 Cardiovascular Disease 09/28/23 documented as of this encounter
--- OUTSIDE RECORDS SUMMARY | 2023-10-28 00:52 | XMS_ITS | Encounter Summary ---
Author Organization [place] Address [address] [place] [address] Care Team Providers Care Water Jet Operator Name Role Phone Ludy Johnson PA-C Primary Care Provider [phone] Ludy Johnson PA-C Unavailable Anjana Guallpa RN Unavailable Unavailable Kendrick Lopez MD Unavailable [phone] Nico Gross MD Unavailable Blanco Uribe MD Unavailable Xenia Calderon MD Unavailable Celi Kahn RN Unavailable Unavailable Sanjana Blair RN Unavailable [phone] Xenia Calderon MD Unavailable Danae Carrero CHW Unavailable Vinita Begum PRENATAL TEACHER Unavailable Kathy Edge SHEET FINISHER Unavailable [phone] Danae Carrero CHW Unavailable [phone] [place] Ho DNP Unavailable Kendrick Lopez MD Unavailable [phone] Encounter Details Date Type Department Care Team (Late st Contact Info) Description 11/01/2020 [facility] [place] [address] [place] [address] Ludy Johnson PA-C [address] [place] [address] Social History Tobacco Use Types Packs/Day Years Used Date Smoking Tobacco: Former Cigarettes 1 30 Smokeless Tobacco: Former Quit: 09/30/2020 Comments:1/2 [...] Description 11/29/2023 10:30 AM CDT Virtual Visit [facility] Mental Health & Addiction [address] [phone] Kathy Edge LICSW [address] [address] 11/29/2023 11:00 AM CDT Virtual Visit [facility] Health & Addiction [address] [address] Enid Ho, [facility] 500 [place], [place] [address] 12/11/2023 2:45 PM CDT Office Visit [facility] Heart [facility] [address] [place] [address] [address] [place] [phone] Kendrick Lopez MD [address] [place] [address] documented as of this encounter Visit Diagnoses Not on filedocumented in this encounter Additional Health Concerns Infection Onset Date Last Indicated Resolved Time Rule Out COVID-19 06/04/2023 06/04/2023 06/06/2023 12:14 PM REVIEW CONSULTANT COVID-19 06/04/2023 06/04/2023 06/25/2023 11:3 9 PM REVIEW CONSULTANT Assessment Noted Time PHQ-9 Depression Total Score: 17 021 7:04 AM CDT documented as of this encounter Care Teams Water Jet Operator Relationship Specialty Start Date End Date Ludy Johnson PA-C [address] [place] [address] PCP - General Physician Window Caser 10/22/15 Ludy Johnson PA-C [address] [place] [address] Assigned PCP 06/09/18 Anjana Guallpa, MIREYA Personal Advocate & Liaison (PAL) Nurse 07/29/20 04/28/21 Kendrick Lopez MD [address] [place] [address] Assigned Heart and Vascular Provider 12/12/20 06/09/22 Nico Gross MD [address] [place] [address] Assigned Musculoskeletal Provider 06/19/21 05/24/23 [place] [address] [address] Assigned Musculoskeletal Provider 06/05/21 06/18/21 Xenia Calderon MD [address] [place] [address] Assigned Surgical Provider 01/28/22 05/16/23 Celi Kahn, RN Personal Advocate & Liaison (PAL) Nurse 03/15/22 04/24/23 Sanjana Blair, MIREYA Personal Advocate & Liaison (PAL) Nurse 04/25/23 Xenia Calderon MD [address] [place] [address] Assigned Surgical Provider 05/25/23 08/13/23 Danae Carrero, [facility] Community Health Worker Primary Care - CC 08/03/23 Vinita Begum, [facility] Lead Commercial Painter Primary Care - CC 08/06/23 Kathy Edge SHEET FINISHER [address], [address] [place] [address] Assigned Behavioral Health Provider 08/14/23 Danae Carrero, [facility] Community Health Worker Primary Care - CC 08/16/23 En[place] Ho DNP [address] [place] [address] Assigned Neuroscience Provider 09/13/23 Kendrick Lopez MD [address] [place] [address] Cardiovascular Disease 09/28/23 documented as of this encounter
--- OUTSIDE RECORDS SUMMARY | 2023-10-28 00:52 | XMS_ITS ---
Author Organization [place] Address [address] [place] [address] Care Team Providers Care Utilization Management Rn Name Role Phone Ludy Johnson PA-C Primary Care Provider [phone] Ludy Johnson PA-C Unavailable [phone] Sanjana Blair RN Unavailable Vinita BegumW Unavailable [phone] Kathy EdgeSW Unavailable [phone] Danae Carrero CHW Unavailable [place] Ho DNP Unavailable Kendrick Lopez MD Unavailable Primary Care Care Coordination Status:Enrolled (Active) Start date:08/03/2023 Enrollment date:08/06/2023 Case Team Name Relationship Phone Vinita SYKESW Lead History Instructor(Respons ible Staff) [phone] Danae Carrero CHW Community Health Worker [phone] Continued Care and Services Coordination
--- OUTSIDE RECORDS SUMMARY | 2023-10-28 00:52 | XMS_ITS | Encounter Summary ---
Author Organization [place] Address [address] [place] [address] Care Team Providers Care Drum Puller Name Role Phone Ludy Johnson PA-C Primary Care Provider [phone] Ludy Johnson PA-C Unavailable Anjana Guallpa RN Unavailable Unavailable Kendrick Lopez MD Unavailable [phone] Nico Gross MD Unavailable Blanco Uribe MD Unavailable [phone] Xenia Calderon MD Unavailable [phone] Celi Kahn RN Unavailable Unavailable Sanjana Blair RN Unavailable [phone] Xenia Calderon MD Unavailable Danae Carrero CHW Unavailable Vinita Begum PRIZER HAND Unavailable Kathy Edge STATOR CONNECTOR Unavailable Danae Carrero CHW Unavailable [phone] [place] Ho DNP Unavailable Kendrick Lopez MD Unavailable [phone] Encounter Details Date Type Department Care Team (Late st Contact Info) Description 10/28/2020 [facility] [place] [address] [place] [address] Ludy Johnson PA-C [address] [place] [address] Social History Tobacco Use Types Packs/Day Years [...] [facility] Mental Health & Addiction [address] [address] Kathy Edge LICSW [address] [address] 11/29/2023 11:00 AM CDT Virtual Visit [facility] Health & Addiction [address] [address] En[place] Ho, [facility] 500 [place], [place] [address] 12/11/2023 2:45 PM CDT Office Visit [facility] Heart [facility] [address] [place] [address] [address] [place] [phone] Kendrick Lopez MD [address] [place] [address] documented as of this encounter Visit Diagnoses Not on filedocumented in this encounter Additional Health Concerns Infection Onset Date Last Indicated Resolved Time Rule Out COVID-19 06/04/2023 06/04/2023 06/06/2023 12:14 PM DEHYDROGENATION CONVERTER HELPER COVID-19 06/04/2023 06/04/2023 06/25/2023 11:3 9 PM DEHYDROGENATION CONVERTER HELPER Assessment Noted Time PHQ-9 Depression Total Score: 17 021 7:04 AM CDT documented as of this encounter Care Teams Drum Puller Relationship Specialty Start Date End Date Ludy Johnson PA-C [address] [place] [address] PCP - General Physician Director Of Health Care Marketing 10/22/15 Ludy Johnson PA-C [address] [place] [address] Assigned PCP 06/09/18 Anjana Guallpa, MIREYA Personal Advocate & Liaison (PAL) Nurse 07/29/20 04/28/21 Kendrick Lopez MD [address] [place] [address] Assigned Heart and Vascular Provider 12/12/20 06/09/22 Nico Gross MD [address] [place] [address] Assigned Musculoskeletal Provider 06/19/21 05/24/23 [place] [address] [address] Assigned Musculoskeletal Provider 06/05/21 06/18/21 Xenia Calderon MD [address] [place] [address] Assigned Surgical Provider 01/28/22 05/16/23 Celi Kahn, RN Personal Advocate & Liaison (PAL) Nurse 03/15/22 04/24/23 Sanjana Blair, MIREYA Personal Advocate & Liaison (PAL) Nurse 04/25/23 Xenia Calderon MD [address] [place] [address] Assigned Surgical Provider 05/25/23 08/13/23 Danae Carrero, [facility] Community Health Worker Primary Care - CC 08/03/23 Vinita Begum, [facility] Lead Aerial Sprayer Primary Care - CC 08/06/23 Kathy Edge STATOR CONNECTOR [address], [address] [place] [address] Assigned Behavioral Health Provider 08/14/23 Danae Carrero, [facility] Community Health Worker Primary Care - CC 08/16/23 Enid Ho DNP [address] [place] [address] Assigned Neuroscience Provider 09/13/23 Kendrick Lopez MD [address] [place] [address] Cardiovascular Disease 09/28/23 documented as of this encounter
--- OUTSIDE RECORDS SUMMARY | 2023-10-28 00:52 | XMS_ITS | Encounter Summary ---
Author Organization [facility] Address [address] [place] [address] Care Team Providers Care Account Liaison Name Role Phone Cassidy Reynolds MD Primary Care Provider Unavailab Kristen Levy-C Primary Care Provid er Ludy Johnson-C Primary Care Provider Rodrigo Hoyos RN Unavailable [phone] Samuel Phan-C Unavailable Ludy Johnson-C Unavailable Samuel Phan-C Unavailable Ludy Johnson-C Unavailable Anjana Guallpa RN Unavailable Unavailable Kendrick Lopez MD Unavailable Nico Gross MD Unavailable Blanco Uribe MD Unavailable [phone] Xenia Calderon MD Unavailable [phone] Celi Kahn RN Unavailable Unavailable Sanjana Blair RN Unavailable [phone] Xenia Calderon MD Unavailable [phone] Danae Carrero CHW Unavailable Vinita Begum CAR REPAIRMAN Unavailable [phone] Kathy Edge RULING TECHNICIAN Unavailable [phone] AliseMichaelsusan Castro CHW Unavailable [phone] Enid Ho DNP Unavailable + [phone] Kendrick Lopez MD Unavailable + [phone] Encounter Details Date Type Department Care Team (Late st Contact Info) Description 09/19/[address] [phone] Orlin Rdz MD ER Visit (Primary Dx) Social History Tobacco Use Types [...] as of this encounter Progress Notes * 09/19/2002 11:59 PM [id number] 00:00 Emergency Department Encounter-ANAID PHILLIPS () [Entered: 00:00 Sales Consultant Insurance ([facility])] : 58 CHIEF COMPLAINT: Leg edema. HISTORY OF PRESENT ILLNESS: The patient is a 42-year-old female who said that she has noted progressive swelling of her lower e xtremities over the past several months that has been worse the last four days. She can't think that she has been eating extra salt, but has cut back on salt since she noted the worsening swelling. Sh e says that she feels her feet and ankles are swollen up just below the knee. She says both of her l egs ache when she walks. She has had no chest pain, shortness of breath. No exertional pain. No he adaches. When I asked her about the comment she made to the nurses about I could use a few extra pi llows last night, she said she was referring to the fact that she felt uncomfortable in her legs and that extra pillows could have helped her feel more comfortable. PAST MEDICAL HISTORY: Otherwise ne gative. MEDICATIONS: None ALLERGIES: NKDA. SOCIAL HISTORY: She lives with her , smokes o ne pack per day. Two to five alcoholic drinks per week. REVIEW OF SYSTEMS: See HPI. All other sys tems are negative. PHYSICAL EXAMINATION: Temperature 96.4, heart rate 92, respiratory rate 16, bloo d pressure 111/79, room air sat 100%. General; alert and oriented times three. She is morbidly obes e. Skin is pink, warm and dry. Cardiovascular is regular S1, S2 without murmur or added sounds. Re spiratory; no increased work of breathing. Lungs are clear. GI; abdomen is soft, nontender. Muscul oskeletal; bilateral lower extremities with 1+ pitting edema from the feet and ankles up just below t he knee. No increased warmth or erythema noted. Homans' is negative. Pulses are intact bilaterally. Bilateral duplex doppler ultrasound studies were negative for DVT. Nurse line had sent her over and told her they were concerned about conditions for which we have not available modalities to test wi th. Basic metabolic profile is normal. Urine is clear. IMPRESSION: Obesity with bilateral lower e xtremity venous stasis and edema. PLAN: The patient ultimately needs to lose weight. In the interi m she should use Teds stockings, decrease sodium in her diet, and follow up with her primary M.D. 60 [phone] for further evaluation. I recommended Weight [employer]chers weight management program. Return to the Emergency Department for new symptoms, change in the nature of symptoms, or worsening symptoms. EM1 04 _ ANAID SANABRIA MD MT: Document: [id number] [place], [place] Name: [facility] EMERGENCY ROOM ENCOUNTER Page 2 of 2 LCN: YONY DSC: 09/19/2002 [place], [place] Name: MR#: : A dmit Date: [facility] [id number] 1960 09/19/2002 Doctor: ANAID SANABRIA MD EMERGENCY ROOM ENCOUNTER Page 1 of 2 documented in this encounter Plan of Treatment Upcoming Encounters Date Type Department Care Team (Late st Contact Info) Description 11/29/2023 10:30 AM CDT Virtual Visit [facility] [address] [place] [address] Kathy Edge LICSW [facility] [place] [address], [address] [place] [address] 11/29/2023 11:00 AM CDT Virtual Visit [facility] Health & Addiction [facility] [address] [place] [address] Enid Ho, [facility] [address] [place], [place] 12[address] 12/11/2023 2:45 PM CDT Office Visit [facility] [address] [facility] [address] [place] [phone] Kendrick Lopez MD [address] [place] [address] [id number] documented as of this encounter Visit Diagnoses Diagnosis ER Visit- Primary documented in this encounter Additional Health Concerns Infection Onset Date Last Indicated Resolved Time Rule Out COVID-19 06/04/2023 06/04/2023 06/06/2023 12:14 PM FOOTWEAR FACTORY WORKER COVID-19 06/04/2023 06/04/2023 06/25/2023 11:3 9 PM FOOTWEAR FACTORY WORKER documented as of this encounter Care Teams Account Liaison Relationship Specialty Start Date End Date Cassidy Reynolds MD PCP - General 01/04/04 09/25/10 Kristen Arias PA-C [address] [address] [place] EDUARDO [place]VA [address] PCP - General Family Practice 09/26/10 10/21/15 Ludy Johnson PA-C [address] [place] [address] PCP - General Physician Net Mender 10/22/15 Samuel Phan PA-C [address] [place] [address] PCP - Assigned PCP 01/27/18 06/08/18 Ludy Johnson PA-C [address] [place] [address] PCP - Assigned PCP 06/09/18 06/25/18 Rodrigo Hoyos RN Clinic Automatic Edger Primary Care - CC 12/12/17 Samuel Phan PA-C [address] [place] [address] Assigned PCP 01/27/18 06/08/18 Ludy Johnson PA-C [address] [place] [address] Assigned PCP 06/09/18 Anjana Guallpa, MIREYA Personal Advocate & Liaison (PAL) Nurse 07/29/20 04/28/21 Kendrick Lopez MD [address] [place] [address] Assigned Heart and Vascular Provider 12/12/20 06/09/22 Nico Gross MD [address] [place] [address] 158295 Assigned Musculoskeletal Provider 06/19/21 05/24/23 [place] [address] [id number] Assigned Musculoskeletal Provider 06/05/21 06/18/21 Xenia Calderon MD [address] [place] [address] 428175 Assigned Surgical Provider 01/28/22 05/16/23 Celi Kahn, MIREYA Personal Advocate & Liaison (PAL) Nurse 03/15/22 04/24/23 Sanjana Blair, MIREYA Personal Advocate & Liaison (PAL) Nurse 04/25/23 Xenia Calderon MD [address] [place] [address] 073255 Assigned Surgical Provider 05/25/23 08/13/23 Danae Carrero, [facility] Community Health Worker Primary Care - CC 08/03/23 Vinita Begum, [facility] Lead Automatic Edger Primary Care - CC 08/06/23 Kathy Edge LICSW [address], [address] [place], [place] [address] Assigned Behavioral Health Provider 08/14/23 Danae Carrero, [facility] Community Health Worker Primary Care - CC 08/16/23 Enid Ho DNP [address] [place] [address] 904565 Assigned Neuroscience Provider 09/13/23 Kendrick Lopez MD [address] [place] [address] [phone] Cardiovascular Disease 09/28/23 documented as of this encounter
--- OUTSIDE RECORDS SUMMARY | 2023-10-28 00:52 | XMS_ITS | Encounter Summary ---
Author Organization [facility] Address [address] [place] [address] Care Team Providers Care Contestant Coordinator Name Role Phone Ludy Johnson PA-C Primary Care Provider [phone] Ludy Johnson PA-C Unavailable [phone] Anjana Guallpa RN Unavailable Unavailable Kendrick Lopez MD Unavailable [phone] Nico Gross MD Unavailable Blanco Uribe MD Unavailable Xenia Calderon MD Unavailable [phone] Celi Kahn RN Unavailable Unavailable Sanjana Blair RN Unavailable Xenia Calderon MD Unavailable Danae Carrero CHW Unavailable Vinita Begum TANK BUILDER SUPERVISOR Unavailable [phone] Kathy Edge AUDIT MACHINE OPERATOR Unavailable Danae Carrero CHW Unavailable [phone] Enid Ho DNP Unavailable Kendrick Lopez MD Unavailable [phone] Encounter Details Date Type Department Care Team (Late st Contact Info) Description 07/29/2018 [facility] [address] [place] [phone] Yue Mcclure RN Social History Tobacco Use Types Packs/Day Years Used Date Smoking Tobacco: Every Day Cigarettes 0.5 30 Smokeless Tobacco: Never Comments:1/2 -3/4 pk every d ay 30 yrs Alcohol Use Standard Drinks/Week Comments Yes 0 (1 standard drink = 0.6 oz pur e alcohol) very rarely PHQ-2 Answer Date Recorded PHQ-2 Score 0 04/30/2018 Sex and Gender Information Value Date Recorded Sex Assigned at Not on file Gender Identity Not on file Sexual Orientation Not on file documented as of this encounter Plan of Treatment Upcoming Encounters Date Type Department Care Team (Late st Contact Info) Description 11/29/2023 10:30 AM CDT Virtual Visit [facility] Mental Health & Addiction [place] [address] [address] Kathy Edge LICSW [address] [place] [address] 11/29/2023 11:00 AM CDT Virtual Visit [facility] [address] [phone] Enid Ho, [facility] [address] [place] [address] 12/11/2023 2:45 PM CDT Office Visit [facility] Heart [facility] [address] [facility] [address] [place] [phone] Kendrick Lopez MD [address] [place] [address] documented as of this encounter Visit Diagnoses Not on filedocumented in this encounter Additional Health Concerns Infection Onset Date Last Indicated Resolved Time Rule Out COVID-19 06/04/2023 06/04/2023 06/06/2023 12:14 PM WINDOW TRIMMER APPRENTICE COVID-19 06/04/2023 06/04/2023 06/25/2023 11:3 9 PM WINDOW TRIMMER APPRENTICE Assessment Noted Time PHQ-9 Depression Total Score: 18 019 7:08 AM CDT documented as of this encounter Care Teams Contestant Coordinator Relationship Specialty Start Date End Date Ludy Johnson PA-C [address] [place] [address] PCP - General Physician Fender Mechanic Apprentice 10/22/15 Ludy Johnson PA-C [address] [place] [address] Assigned PCP 06/09/18 Anjana Guallpa, MIREYA Personal Advocate & Liaison (PAL) Nurse 07/29/20 04/28/21 Kendrick Lopez MD [address] [place] [address] 010145 Assigned Heart and Vascular Provider 12/12/20 06/09/22 Nico Gross MD [address] [place] [address] 788875 Assigned Musculoskeletal Provider 06/19/21 05/24/23 [place] [address] 022137 Assigned Musculoskeletal Provider 06/05/21 06/18/21 Xenia Calderon MD [address] [place] [address] 906815 Assigned Surgical Provider 01/28/22 05/16/23 Celi Kahn, MIREYA Personal Advocate & Liaison (PAL) Nurse 03/15/22 04/24/23 Sanjana Blair RN Personal Advocate & Liaison (PAL) Nurse 04/25/23 Xenia Calderon MD [address] [place] [address] 176955 Assigned Surgical Provider 05/25/23 08/13/23 Danae Carrero, [facility] Community Health Worker Primary Care - CC 08/03/23 4 Vinita Begum, [facility] Lead Extractor Plant Operator Primary Care - CC 08/06/23 Kathy Edge AUDIT MACHINE OPERATOR [address], [address] [place] [address] Assigned Behavioral Health Provider 08/14/23 Danae Carrero, [facility] Community Health Worker Primary Care - CC 08/16/23 Enid Ho DNP [address] [place] [address] [phone] Assigned Neuroscience Provider 09/13/23 Kendrick Lopez MD [address] [place] [address] Cardiovascular Disease 09/28/23 documented as of this encounter
--- OUTSIDE RECORDS SUMMARY | 2023-10-28 00:52 | XMS_ITS | Encounter Summary ---
Author Organization [facility] Address [address] [place] [address] Care Team Providers Care Photographic Enlarger Operator Name Role Phone Ludy Johnson PA-C Primary Care Provider [phone] Ludy Johnson PA-C Unavailable Anjana Guallpa RN Unavailable Unavailable Kendrick Lopez MD Unavailable [phone] Nico Gross MD Unavailable Blanco Uribe MD Unavailable Xenia Calderon MD Unavailable Celi Kahn RN Unavailable Unavailable Sanjana Blair RN Unavailable [phone] Xenia Calderon MD Unavailable [phone] Danae Carrero CHW Unavailable Vinita Begum CHANGE OVER Unavailable Kathy Edge DIRECTOR OF CLINICAL EDUCATION Unavailable [phone] Danae Carrero CHW Unavailable [phone] Enid Ho DNP Unavailable Kendrick Lopez MD Unavailable [phone] Encounter Details Date Type Department Care Team (Late st Contact Info) Description 09/30/[address] [facility] [address] [place] [address] Rissa Trujillo Social History Tobacco Use Types [...] CDT Virtual Visit [facility] Mental Health & Addiction [address] [address] Kathy Edge LICSW [address] [address] 11/29/2023 11:00 AM CDT Virtual Visit [facility] Health & Addiction [address] [address] Enid Ho, [facility] [place] 500 [place] [address] 12/11/2023 2:45 PM CDT Office Visit [facility] Heart [facility] [address] [facility] [address] [place] [phone] Kendrick Lopez MD [address] [place] [address] 819935 documented as of this encounter Visit Diagnoses Not on filedocumented in this encounter Additional Health Concerns Infection Onset Date Last Indicated Resolved Time Rule Out COVID-19 06/04/2023 06/04/2023 06/06/2023 12:14 PM STATION CASHIER COVID-19 06/04/2023 06/04/2023 06/25/2023 11:3 9 PM STATION CASHIER Assessment Noted Time PHQ-9 Depression Total Score: 19 021 7:03 AM CDT documented as of this encounter Care Teams Photographic Enlarger Operator Relationship Specialty Start Date End Date Ludy Johnson PA-C [address] [place] [address] PCP - General Physician Treasury Associate 10/22/15 Ludy Johnson PA-C [address] [place] [address] Assigned PCP 06/09/18 Anjana Guallpa RN Personal Advocate & Liaison (PAL) Nurse 07/29/20 04/28/21 Kendrick Lopez MD [address] [place] [address] Assigned Heart and Vascular Provider 12/12/20 06/09/22 Nico Gross MD [address] [place] [address] Assigned Musculoskeletal Provider 06/19/21 05/24/23 [place] [address] [address] Assigned Musculoskeletal Provider 06/05/21 06/18/21 Xenia Calderon MD [address] [place] [address] Assigned Surgical Provider 01/28/22 05/16/23 Celi Kahn RN Personal Advocate & Liaison (PAL) Nurse 11/23/22 1/2/24 Sanjana Blair, RN Personal Advocate & Liaison (PAL) Nurse 04/25/23 Xenia Calderon MD [address] [place] [address] 609025 Assigned Surgical Provider 05/25/23 08/13/23 Danae Carrero, [facility] Community Health Worker Primary Care - CC 08/03/23 4 Vinita Begum, [facility] Lead Rectifier Operator Primary Care - CC 08/06/23 Kathy Edge DIRECTOR OF CLINICAL EDUCATION [address], [address] [place] [address] Assigned Behavioral Health Provider 08/14/23 Danae Carrero, [facility] Community Health Worker Primary Care - CC 08/16/23 Enid Ho DNP [address] [place] [address] [phone] Assigned Neuroscience Provider 09/13/23 Kendrick Lopez MD [address] [place] [address] 660835 Cardiovascular Disease 09/28/23 documented as of this encounter
--- OUTSIDE RECORDS SUMMARY | 2023-10-28 00:52 | XMS_ITS | Continuity of Care Document ---
Author Organization [facility] Address [address] [address] [place] [address] Phone Care Team Providers Care Gang Head Saw Operator Name Role Phone Link Stalin KUMAR Unavailable Unavailable Advance Directives Directive Yes / No Effective Date File Name No Information Encounters Encounter Description Practice Location Reason(s) For Visit Diagnoses Date Provider Providers Copied on Encounter CARLOS EDUARDO [facility], [address] [address], [place], [place], [id number], [place] tel:[phone] [facility] No Information 8 Link MD Gant. [address] [facility] [address], [place], [place], [id number] , [place]. tel:[phone] Family History Family Member Type Diagnosis Age At Onset No Information Payers Payer name Insurance type Covered constitution party ID Authoriza tion(s) No Information Social [...]
--- OUTSIDE RECORDS SUMMARY | 2023-10-28 00:52 | XMS_ITS | Encounter Summary ---
Author Organization [facility] Address [address] [place] [address] Care Team Providers Care Cover Cutter Name Role Phone Kristen Arias PA-C Primary Care Provid er Ludy Johnson PA-C Primary Care Provider [phone] Rodrigo Hoyos RN Unavailable [phone] Samuel Phan PA-C Unavailable Ludy Johnson PA-C Unavailable Samuel Phan PA-C Unavailable Ludy Johnson-Gloria Unavailable Anjana Guallpa RN Unavailable Unavailable Kendrick Lopez MD Unavailable Nico Gross MD Unavailable Blanco Uribe MD Unavailable Xenia Calderon MD Unavailable [phone] Celi Kahn RN Unavailable Unavailable Sanjana Blair RN Unavailable Xenia Calderon MD Unavailable Danae Carrero CHW Unavailable Vinita Begum Unavailable Kathy Edge Unavailable Danae Carrero Gloria [facility] Unavailable Enid Ho DNP Unavailable [phone] Kendrick Lopez MD Unavailable [phone] Encounter Details Date Type Department Care Team (Late Contact Info) Description 04/26/2011 [facility] [address] [phone] Travis [facility] Social History Tobacco Use Types Packs/Day Years Used Date Smoking Tobacco: Every Day Cigarettes 0.5 30 Smokeless Tobacco: Never Comments:2 -3/ pk every d ay 30 yrs Alcohol Use Standard Drinks/Week Comments Yes 0 (1 standard drink = 0.6 oz pur e alcohol) infrequent Sex and Gender Information Value Date Recorded Sex Assigned at Not on file Gender Identity Not on file Sexual Orientation Not on file documented as of this encounter Plan of Treatment Upcoming Encounters Date Type Department Care Team (Late Contact Info) Description 11/29/2023 10:30 AM CDT Virtual Visit [facility] Mental Health & Addiction [address] [address] Kathy Edge [address] [address] 11/29/2023 11:00 AM CDT Virtual Visit [facility] & Addiction [address] [address] Enid Ho, [facility] [address] [place], [place] [address] 12/11/2023 2:45 PM CDT Office Visit [facility] Heart [facility] [address] [place] [address] 140 [place] [phone] Kendrick Lopez MD [address] [place] [address] [phone] documented as of this encounter Visit Diagnoses Not on filedocumented in this encounter Additional Health Concerns Infection Onset Date Last Indicated Resolved Time Rule Out COVID-19 06/04/2023 06/04/2023 06/06/2023 12:14 PM RN STAFFING COVID-19 06/04/2023 06/04/2023 06/25/2023 11:3 9 PM RN STAFFING documented as of this encounter Care Teams Cover Cutter Relationship Specialty Start Date End Date Kristen Arias PA-C [address] [address] [place] [address] PCP - General Family Practice 09/26/10 10/21/15 Ludy Johnson PA-C [address] [place] [address] PCP - General Physician Crtt 10/22/15 Samuel Phan PA-C [address] [place] [address] PCP - Assigned PCP 01/27/18 06/08/18 Ludy Johnson PA-C [address] [place], [place] [phone] PCP - Assigned PCP 06/09/18 06/25/18 Rodrigo Hoyos, RN Clinic Area Field Worker Primary Care - CC 12/12/17 9 Samuel Phan PA-C [address] [place] [address] Assigned PCP 01/27/18 06/08/18 Ludy Johnson PA-C [address] [place] [address] Assigned PCP 06/09/18 Anjana Guallpa, MIREYA Personal Advocate & Liaison (PAL) Nurse 07/29/20 04/28/21 Kendrick Lopez MD [address] [place] [address] Assigned Heart and Vascular Provider 12/12/20 06/09/22 Nico Gross MD [address] [place] [address] 460285 Assigned Musculoskeletal Provider 06/19/21 05/24/23 [place] [address] 524797 Assigned Musculoskeletal Provider 06/05/21 06/18/21 Xenia Calderon MD [address] [place] [address] 923985 Assigned Surgical Provider 01/28/22 05/16/23 Celi Kahn RN Personal Advocate & Liaison (PAL) Nurse 03/15/22 04/24/23 Sanjana Blair RN Personal Advocate & Liaison (PAL) Nurse 04/25/23 Xenia Calderon MD [address] [place] [address] 269485 Assigned Surgical Provider 05/25/23 08/13/23 Danae Carrero, W Community Health Worker Primary Care - CC 08/03/23 4 Vinita Begum, CONTAINER WASHER Lead Area Field Worker Primary Care - CC 08/06/23 Kathy Edge ARC WELDER APPRENTICE [address], [address] [place] [address] Assigned Behavioral Health Provider 08/14/23 Danae Carrero, [facility] Community Health Worker Primary Care - CC 08/16/23 Enid Ho DNP [address] [place] [address] [phone] Assigned Neuroscience Provider 09/13/23 Kendrick Lopez MD [address] [place] [address] [phone] Cardiovascular Disease 09/28/23 documented as of this encounter
--- OUTSIDE RECORDS SUMMARY | 2023-10-28 00:52 | XMS_ITS | Encounter Summary ---
Author Organization [facility] Address [address] [place] [address] Care Team Providers Care Ironing Machine Operator Name Role Phone Ludy Johnson PA-C Primary Care Provider [phone] Ludy Johnson PA-C Unavailable Anjana Guallpa RN Unavailable Unavailable Kendrick Lopez MD Unavailable [phone] Nico Gross MD Unavailable Blanco Uribe MD Unavailable Xenia Calderon MD Unavailable Celi Kahn RN Unavailable Unavailable Sanjana Blair RN Unavailable Xenia Calderon MD Unavailable Danae Carrero CHW Unavailable [phone] Vinita Begum LOCKMAKER Unavailable [phone] Kathy Edge PRODUCT MARKETING MANAGER Unavailable [phone] Danae Carrero CHW Unavailable [phone] Enid Ho DNP Unavailable Kendrick Lopez MD Unavailable [phone] Encounter Details Date Type Department Care Team (Late st Contact Info) Description 03/28/[address] [place] [phone] Alexandra Wade, VENEER DEPARTMENT MANAGER Social History Tobacco Use Types Packs/Day Years Used Date Smoking Tobacco: Every Day Cigarettes 0.5 30 Smokeless Tobacco: Never Comments:1/2 -3/4 pk every d ay 30 yrs Alcohol Use Standard Drinks/Week Comments Yes 0 (1 standard drink = 0.6 oz pur e alcohol) very rarely PHQ-2 Answer Date Recorded PHQ-2 Score 0 08/23/2018 Sex and Gender Information Value Date Recorded Sex Assigned at Not on file Gender Identity Not on file Sexual Orientation Not on file documented as of this encounter Plan of Treatment Upcoming Encounters Date Type Department Care Team (Late st Contact Info) Description 11/29/2023 10:30 AM CDT Virtual Visit [facility] Mental Health & Addiction [address] [phone] Kathy Edge LICSW [address] [place] [id number] 11/29/2023 11:00 AM CDT Virtual Visit [facility] Health & Addiction [address] [phone] Enid Ho, [facility] [address] [place] [address] 12/11/2023 2:45 PM CDT Office Visit [facility] [id number] [place] [address] [address] [place] [phone] Kendrick Lopez MD [address] [place] [address] [phone] documented as of this encounter Visit Diagnoses Not on filedocumented in this encounter Additional Health Concerns Infection Onset Date Last Indicated Resolved Time Rule Out COVID-19 06/04/2023 06/04/2023 06/06/2023 12:14 PM SUBWAY CAR REPAIRER COVID-19 06/04/2023 06/04/2023 06/25/2023 11:3 9 PM SUBWAY CAR REPAIRER Assessment Noted Time PHQ-9 Depression Total Score: 18 019 7:08 AM CDT documented as of this encounter Care Teams Ironing Machine Operator Relationship Specialty Start Date End Date Ludy Johnson PA-C [address] [place] [address] PCP - General Physician Client Solutions Manager 10/22/15 Ludy Johnson PA-C [address] [place] [address] Assigned PCP 06/09/18 Anjana Guallpa RN Personal Advocate & Liaison (PAL) Nurse 07/29/20 04/28/21 Kendrick Lopez MD [address] [place] [address] [phone] Assigned Heart and Vascular Provider 12/12/20 06/09/22 Nico Gross MD [address] [place] [address] [phone] Assigned Musculoskeletal Provider 06/19/21 05/24/23 [place] [id number] [id number] Assigned Musculoskeletal Provider 06/05/21 06/18/21 Xenia Calderon MD [address] [place] [address] [id number] Assigned Surgical Provider 01/28/22 05/16/23 Celi Kahn RN Personal Advocate & Liaison (PAL) Nurse 03/15/22 04/24/23 Sanjana Blair RN Personal Advocate & Liaison (PAL) Nurse 04/25/23 Xenia Calderon MD [address] [place] [address] [phone] Assigned Surgical Provider 05/25/23 08/13/23 Danae Carrero, [facility] Community Health Worker Primary Care - CC 08/03/23 4 Vinita Begum, [facility] Lead Claims Account Specialist Primary Care - CC 08/06/23 Kathy Edge PRODUCT MARKETING MANAGER [address], [address] [place] [address] Assigned Behavioral Health Provider 08/14/23 Danae Carrero, [facility] Community Health Worker Primary Care - CC 08/16/23 Enid Ho DNP [address] [place] [address] [phone] Assigned Neuroscience Provider 09/13/23 Kendrick Lopez MD [address] [place] [phone] Cardiovascular Disease 09/28/23 documented as of this encounter
[2023-10-28 00:59] LABS: Basophils Absolute Auto 0.03 K/uL (0.00-0.30); Basophils Percent Auto 0.3 % (0.0-3.0); Eosinophils Percent Auto 1.2 % (0.0-7.0); Hematocrit 45.7 % (33.0-51.0); Hemoglobin* 15.1 gm/dL (12.0-16.0); Immature Granulocytes Abs Auto 0.01 K/uL (0.00-0.30); Immature Granulocytes Pct Auto 0.1 %; Lymphocytes Absolute Auto 3.44 K/uL (0.90-2.90); Lymphocytes Percent Auto 39.6 % (20-44); Mean Corpuscular HGB Conc 33 gm/dL (32-36); Mean Corpuscular Hemoglobin 29 pg (26-34); Mean Corpuscular Volume 89 fL (80-100); Monocytes Percent Auto 7.2 % (0.0-11.0); Neutrophils Absolute Auto 4.48 K/uL (1.7-7.0); Neutrophils Percent Auto 51.6 % (42.0-72.0); Platelet Count* 277 K/uL (140-440); RDW Coefficient of Variation % 13.6 % (11.5-15.5); Red Blood Count 5.14 m/uL (4.00-5.20); White Blood Count* 8.69 K/uL (4.50-11.00)
[2023-10-28 01:01] LABS: Slide Review Reflex No
[2023-10-28 01:21] LABS: D Dimer Quantitative* 0.33 ug/ml (0.00-0.50)
[2023-10-28 02:43] VITALS: BP 134/78; PULSE 87; RESP 22; O2SAT 94
[2023-10-28 04:28] LABS: Chloride* 104 mmol/L (96-114)
[2023-10-28 04:29] LABS: Potassium* 3.4 mmol/L (3.6-5.1); Sodium* 139 mmol/L (135-149)
[2023-10-28 04:31] LABS: Creatinine* 0.7 mg/dL (0.5-1.5); Est. Creatinine Clearance* 55.27; Estimated Glomerular Filt Rate 97 ml/min
[2023-10-28 04:32] LABS: Anion Gap 8 mEq/L (7-15); Blood Urea Nitrogen* 18 mg/dL (7-30); Calcium* 9.3 mg/dL (8.4-10.6); Carbon Dioxide* 27 mmol/L (20-32); Glucose* 116 mg/dL (60-115)
[2023-10-28 04:46] LABS: Troponin I* < 0.01 ng/mL (0.01-0.04)
== END 2023-10-28 02:53 | disposition home or self-care (01) ==
PROVIDERS: Emergency Provider Internal Medicine; PCP Physician Assistant
DX: J20.9 Acute bronchitis, unspecified (principal)
CPT/HCPCS: 36415; 71045; 80048; 84484; 85025; 85379; 99283; 99284